=== PATIENT | male | born 1945 | race Caucasian/White ===

== ENCOUNTER 2021-06-17 18:35 | Inpatient (IN) | payer MEDICARE, OTHER, SELFPAY ==
[2021-06-17] VITALS (11 sets, daily range): BP systolic 86–138; BP diastolic 46–86; PULSE 38–86; RESP 17–22; TEMP 36.8–37.1; O2SAT 24–98; BMI 31.4
--- NOTE | ~2021-06-17 | XR_ITS ---
EXAMINATION: XR chest 1V portable DATE: 06/17/2021 19:28 INDICATION: Weakness. TECHNIQUE: A single frontal view of the chest was obtained. COMPARISON: None. FINDINGS: The chest demonstrates clear lungs without pneumonia, pleural effusion, or pneumothorax. Th e heart size is normal. There are prominent paracardial fat pads. IMPRESSION: 1. No acute cardiopulmonary disease. Reviewed, dictated and finalized at location A.
[2021-06-17] MEDS: DEXTROSE 50% 25 GM/50 ML SYRINGE (18:37)
[2021-06-17] MEDS: INSULIN HUMAN REGULAR (*BKC) 100 UNITS/ML 10 UNITS (18:37)
[2021-06-17] MEDS: CALCIUM GLUCONATE 1,000 MG/10 ML VIAL 1000 MG (18:38)
--- NOTE | 2021-06-17 18:40 | ECG_ITS ---
Measurements Intervals [place] Rate: 23 P: [place]: 0 QRS: -79 QRSD: 239 T: 75 QT: 585 QTc: 367 Interpretive Statements IDIOVENTRICULAR RHYTHM RIGHT BUNDLE BRANCH BLOCK ABNORMAL ECG Electronically Signed On 06-18-2021 5:39:18 CDT by Liang Almanza D.O.
--- NOTE | 2021-06-17 18:42 | PC.NURSE ---
Dr. Kowalski at bedside. VORB 1mg atropine IVP.
--- NOTE | 2021-06-17 18:44 | PC.NURSE ---
Dr. Kowalski at bedside. VORB 1g calcium chloride IVP.
[2021-06-17 18:55] LABS: Alveolar/Arterial O2 Gradient 20.4 mmHg; Base Excess ABG -13.4 mEq/l (+/-2.0); Carboxyhemoglobin 0.6 % THb (0-2.0); Fractional Inspired Oxygen 21 %; HCO3 ABG 13.8 mEq/l (22.0-26.0); Methemoglobin ABG 0.3 %THb (0-1.5); Oxygen Content ABG 17.6 %vol (16.0-22.0); Oxygen Saturation ABG 94.3 % (95.0-100.0); Oxyhemoglobin 91.7 % THb (90.0-100.0); PCO2 ABG 36.5 mmHg (35.0-45.0); PO2 ABG 85.6 mmHg (80.0-100.0); PO2 FiO2 Ratio Arterial Blood 4.08 %; Reduced Hemoglobin 7.4 %THb (0-5.0); Total Hemoglobin 13.6 g/dL (12.0-18.0)
[2021-06-17 18:56] LABS: Device ROOM AIR; Site Drawn RIGHT BRACHIAL; pH ABG 7.196 (7.350-7.450)
[2021-06-17] MEDS: SODIUM BICARBONATE 8.4% 50 MEQ/50 ML SYRINGE IV PUSH ×2 (19:03→19:49)
--- NOTE | 2021-06-17 19:07 | PC.NURSE ---
Bedside report to NOY Hamlin.
[2021-06-17 19:13] LABS: Basophils Percent Auto 0.2 % (0.2-1.2); Hematocrit 41.1 % (42.0-52.0); Hemoglobin 12.9 g/dL (14.0-18.0); Immature Granulocyte Absolute 0.14 K/mm3 (0.00-0.031); Immature Granulocyte Percent A 1.3 % (0-0.5); Lymphocytes Absolute Auto 0.39 K/mm3 (0.9-3.2); Lymphocytes Percent Auto 3.7 % (18.3-44.2); Mean Corpuscular HGB Conc 31.4 g/dl (32-36); Mean Corpuscular Hemoglobin 34.4 pg (26-34); Mean Corpuscular Volume 109.6 fl (80-100); Mean Platelet Volume 9.4 fl (7.4-10.4); Monocytes Absolute Auto 0.2 K/mm3 (0.1-0.6); Monocytes Percent Auto 1.9 % (2.6-8.5); Neutrophils Absolute Auto 9.9 K/mm3 (1.3-6.7); Neutrophils Percent Auto 92.9 % (45.5-73.1); Platelet Count Result 249 k/mm3 (150-375); Red Blood Count 3.75 M/mm3 (4.6-6.20); Red Cell Distribution Width 15.8 % (11.5-14.5); White Blood Count 10.6 K/mm3 (4.5-10.0)
--- NOTE | 2021-06-17 19:15 | ED.WEAKNESS ---
HPI - Weakness General Chief complaint: Weakness Stated complaint: weakness Source: patient and RN notes reviewed Mode of arrival: EMS Limitations: no limitations History of Present Illness HPI Narrative: This is a 76 year old male with history of hypertension and ESRD on dialysis who presents for evaluation of generalized weakness. Patient reports he is extremely weak and tired today. HE denies chest pain, shortness of breath, cough or fever. He denies vomiting or diarrhea. He states he was unable to make it dialysis today. EMS was called and he was found to be hypotensive with chema cardia. He reports he had dialysis on Thursday. He denies cardiac history . MD Complaint: generalized weakness Related Data Home Medications Medication Instructions Recorded Confirmed allopurinol 100 mg PO DAILY 06/17/21 06/17/21 aspirin [Adult Low Dose Aspirin] 81 mg PO DAILY 06/17/21 06/17/21 cholecalciferol (vitamin D3) 50 mcg PO DAILY 06/17/21 06/17/21 clonidine 1 patch TRANSDERMAL DIRECTED 06/17/21 06/17/21 diltiazem HCl 360 mg PO DAILY 06/17/21 06/17/21 ferrous sulfate 325 mg PO DAILY 06/17/21 06/17/21 folic acid 1 mg PO DAILY 06/17/21 06/17/21 furosemide [Lasix] 80 mg PO DAILY 06/17/21 06/17/21 hydralazine 100 mg PO DIRECTED 06/17/21 06/17/21 simvastatin 20 mg PO DAILY 06/17/21 06/17/21 Allergies Allergy/AdvReac Type Severity Reaction Status Date / Time No Known Allergies Allergy Verified 06/17/21 22:11 Review of Systems Review of Systems: All systems reviewed & are unremarkable except as noted in HPI and below PMFSH Past Medical History Medical History (Updated 06/17/21 @ 20:15 by Candace Kowalski MD) ESRD on dialysis Hypertension Surgical History Surgical History (Updated 06/17/21 @ 19:21 by Candace Kowalski MD) H/O colectomy History of nephrectomy Social History Social History Smoking packs per day: 0.5 Smoking cigarettes per day: 10.0 Years smoked: 52 Smoking pack-years: 26.00 Smoking status: Current some day smoker Second hand tobacco smoke exposure: Yes Alcohol intake: former Substance use: never Spiritual care concerns: No Exam Const: General: alert and ill appearing Orientation/consciousness: patient oriented x3 Chest: Chest palpation & inspection: normal inspection of the chest Resp: Effort & Inspection: normal respiratory effort and no retractions Auscultation: clear to auscultation bilaterally Cardio: Rate: bradycardic Rhythm: abnormal rhythm GI: GI Palp: Yes Soft to palpation, No Tenderness to palpation present (GI) and No Guarding due to palpation present (GI) Auscultation: normal bowel sounds Other: old midline abdominal surgical scar Skin: Rashes: no rashes Other: bilateral lower extremities with hyperpigmentation from venous stasis Neuro: General: patient oriented x3, moves all extremities and CN's II-XI intact bilaterally Extrem: General: edema Psych: Mental Status: mental status grossly normal Affect: normal affect Course Reevaluation(s) Reevaluation #1: On arrival patient found to have wide complex chema cardia suggesting hyperkalemia. He was given 10 units IV insulin, dextrose, bicarb 1 amp and calcium 1 amp emergently. BP improved with HR now 70s and BP is now normal. He states he feels better. He denies chest pain or shortness of breath , just fatigue. Date: 06/17/21 Time: 19:22 Consultations Consultation #1: I spoke with Dr. Easley of nephrology. He states dialysis should be here and patient should be admitted to ICU Date: 06/17/21 Time: 19:38 Consultation #2: I discussed case with Dr. Murguia who accepts to ICU Date: 06/17/21 Time: 19:42 Consultation #3: I spoke with Dr. Downing who accepts patient to service. I Discussed all labs and case. Date: 06/17/21 Time: 20:10 Vital Signs Vital signs: Vital Signs Temperature 98.8 F 06/17/21 18:29 Pulse Rate 47 L 06/17/21 18:29 Respiratory Rate 18 06/17/21 18:29 Pulse O
[2021-06-17 19:23] LABS: INR 1.1; Prothrombin Time 14.5 Seconds (11.1-14.7)
[2021-06-17 19:24] LABS: Partial Thromboplastin Time 32.1 SECONDS (22.3-36.8)
[2021-06-17 19:32] LABS: Albumin Level 4.3 g/dL (3.5-5.1); Alkaline Phosphatase 65 U/L (38-126); Anion Gap 25 mmol/L (8-16); Aspartate Amino Transferase 34 U/L (17-59); Bilirubin,Total 0.8 mg/dL (0.2-1.3); Blood Urea Nitrogen 84 mg/dL (9-20); Calcium 10.6 mg/dL (8.4-10.2); Carbon Dioxide 14 mmol/L (22-30); Chloride 96 mmol/L (98-107); Glucose 243 mg/dL (65-110); Magnesium 3.2 mg/dL (1.6-2.3); Potassium 8.2 mmol/L (3.4-5.0); Sodium 135 mmol/L (137-145)
[2021-06-17 19:33] LABS: Lactic Acid Reflex 8.1 mmol/L (0.7-2.1)
[2021-06-17 19:35] LABS: NT Pro B Type Natriuretic Pept 3690 pg/mL (5-100); Troponin I 0.018 ng/mL (0.000-0.034)
[2021-06-17 19:36] LABS: Estimated CRCL calculation 4 ml/min; Estimated Glomerular Filt Rate 3
[2021-06-17 19:45] LABS: Alanine Aminotransferase 37 U/L (4-50)
[2021-06-17] MEDS: SODIUM CHLORIDE 0.9% IV 1,000 ML 999 ML IV CONT (19:48)
[2021-06-17] MEDS: SODIUM POLYSTYRENE SULFONONATE 15 GM/60 ML BTL PO (19:48)
[2021-06-17 20:28] LABS: Glucose Point of Care 72 mg/dl (65-105)
[2021-06-17 20:34] LABS: Add Urine Microscopic? YES; Appearance Urine Cloudy (Clear); Bacteria Urine Trace /hpf; Bilirubin Urine Negative (Negative); Blood Urine 2+ (Negative); Color Urine Amber (Yellow); Glucose Urine UA 1+ mg/dL (Negative); Ketones Urine Negative (Negative); Leukocyte Esterase Ur 2+ LEU/UL (Negative); Mucus Urine Rare /lpf; Nitrate Urine Negative (Negative); Protein Urine 2+ mg/dL (Negative); Specific Grav Ur 1.016 (1.001-1.035); Squamous Epithelial Cell Urine Occasional /hpf (Few); Urobilinogen Urine Negative mg/dL (<2.0); WBC Urine 31-50 /hpf
--- NOTE | 2021-06-17 20:39 | PC.NURSE ---
Attempted to call report to ICU at this time. janitorial cleaner on phone at this time. ICU charge will call back.
--- NOTE | 2021-06-17 21:00 | ADMGEN ---
This patient, Balwinder Mora, was admitted to Intensive Care Unit-12. Patient/family oriented to hospital policies and general routines including ID bracelet, bed and alarms, visiting hours, pain management, procedures, bathroom and other care routines, personal items, smoking policy, room service/diet, and visiting hours. DIALYSIS NURSE HERE TO PLACE ON TREATMENT. DENIES PAIN OR SOB ON ARRIVAL. DIALYSIS FISTULA TO L. UPPER ARM. Information on how to activate the Rapid Response Team has been discussed. Patient/Family are encouraged to report perceived risks to care and to ask questions if they do not understand what they are told or what they should do.
[2021-06-17] MEDS: DEXTROSE 50% 25 GM/50 ML SYRINGE IV PUSH (21:15)
[2021-06-17 21:18] LABS: Glucose Point of Care 46 mg/dl (65-105)
[2021-06-17 22:06] LABS: Glucose Point of Care 51 mg/dl (65-105)
[2021-06-17 22:12] LABS: Reflex Lactic Acid Yes or No Add Lactic
[2021-06-17 22:39] LABS: Hepatitis B Surface Antigen Negative (Negative)
[2021-06-17 22:57] LABS: Hepatitis B Surface Anti Res Negative
[2021-06-17 23:09] LABS: Glucose Point of Care 80 mg/dl (65-105)
[2021-06-18] VITALS (9 sets, daily range): BP systolic 90–124; BP diastolic 47–67; PULSE 60–80; RESP 13–20; TEMP 36.6–37.2; O2SAT 94–98
--- NOTE | 2021-06-18 00:10 | PM.IMHP ---
H&P: HPI History of Present Illness Date/Time: 06/18/21 00:10 Chief Complaint: Generalized weakness Narrative: This is a 76-year-old male with past medical history significant for end-stage renal disease on hemodialysis, he goes to hemodialysis Wednesdays and Fridays he was unable to make it to dialysis this Thursday as when he got ready to go out in his car he did not feel well he was extremely weak and when wound getting out of the car he felt his legs were too weak he was able to get up and go back in his house he was feeling too weak to get out of bed and his friend called EMS, upon EMS arrival patient was found to be hypotensive with a very slow heart rate and was brought to the emergency room. Preliminary workup was significant for a potassium of 8.2 and an EKG showed a heart rate of 23 a QT interval of 585. Patient denies any chest pain but a states that he was feeling very tired fatigued weak and could not lay down due to shortness of breath at the time of my visit his said that he feels a lot better. He had been in his usual state of health according to his friend he has had high potassium in the past. He denies any fevers, any chills, any rigors, any cough, no sputum production, no chest pain, no syncope or near syncope. Review of Systems Review of Systems: Generalized weakness, fatigue, shortness of breath, fall Constitutional: Constitutional: Denies chills, Reports fatigue, Denies fever(s), Reports lethargy and Reports weakness Eyes: Eyes: Denies change in vision ENT: Denies dysphagia, Denies nasal congestion, Denies nasal discharge and Denies odynophagia Cardiovascular: Cardiovascular: Denies lightheadedness and Reports orthopnea Respiratory: Respiratory: Denies cough Gastrointestinal: Gastrointestinal: Denies abdominal pain, Denies GI cramping, Denies dyspepsia, Denies heartburn and Denies diarrhea Genitourinary: Genitourinary: Reports no additional male genitourinary complaints Musculoskeletal: Musculoskeletal: Reports no additional musculoskeletal complaints Integumentary/Breasts: Skin/Breast: Reports system reviewed and no additional complaints, except as docu Neurologic: Reports system reviewed and no additional complaints, except as documented Psychiatric: Psychiatric: Reports no additional psychiatric complaints Endocrine: Endocrine: Reports no additional endocrine complaints Hematologic/Lymphatic: Hematologic/Lymphatic: Reports no additional hematologic/lymphatic complaints Allergic/Immunologic: Allergic/Immunologic: Reports no additional allergic/immunologic complaints FOR[facility]LY [facility], [facility] Past Medical History Medical History (Updated 06/18/21 @ 01:01 by Noemi Downing MD) ESRD on dialysis Hypertension Surgical History Surgical History (Updated 06/17/21 @ 19:21 by Candace Kowalski MD) H/O colectomy History of nephrectomy Social History Social History Smoking packs per day: 0.5 Smoking cigarettes per day: 10.0 Years smoked: 52 Smoking pack-years: 26.00 Smoking status: Current some day smoker Second hand tobacco smoke exposure: Yes Alcohol intake: former Substance use: never Spiritual care concerns: No Meds Home Medications and Allergies Home Medications Medication Instructions Recorded Confirmed Type allopurinol 100 mg PO DAILY 06/17/21 06/17/21 History aspirin [Adult Low Dose Aspirin] 81 mg PO DAILY 06/17/21 06/17/21 History cholecalciferol (vitamin D3) 50 mcg PO DAILY 06/17/21 06/17/21 History clonidine 1 patch TRANSDERMAL DIRECTED 06/17/21 06/17/21 History diltiazem HCl 360 mg PO DAILY 06/17/21 06/17/21 History ferrous sulfate 325 mg PO DAILY 06/17/21 06/17/21 History folic acid 1 mg PO DAILY 06/17/21 06/17/21 History furosemide [Lasix] 80 mg PO DAILY 06/17/21 06/17/21 History hydralazine 100 mg PO DIRECTED 06/17/21 06/17/21 History simvastatin 20 mg PO DAILY 06/17/21 06/17/21 History Allergies Allergy/AdvReac Type Severity Reaction Status Date / T
[2021-06-18 00:17] LABS: Glucose Point of Care 97 mg/dl (65-105)
[2021-06-18 03:20] LABS: Glucose Point of Care 90 mg/dl (65-105)
[2021-06-18 04:55] LABS: Basophils Percent Auto 0.2 % (0.2-1.2); Hematocrit 32.8 % (42.0-52.0); Hemoglobin 10.9 g/dL (14.0-18.0); Immature Granulocyte Absolute 0.05 K/mm3 (0.00-0.031); Immature Granulocyte Percent A 0.6 % (0-0.5); Lymphocytes Absolute Auto 0.79 K/mm3 (0.9-3.2); Lymphocytes Percent Auto 9.6 % (18.3-44.2); Mean Corpuscular HGB Conc 33.2 g/dl (32-36); Mean Corpuscular Hemoglobin 34.4 pg (26-34); Mean Corpuscular Volume 103.5 fl (80-100); Mean Platelet Volume 9.5 fl (7.4-10.4); Monocytes Percent Auto 11.9 % (2.6-8.5); Neutrophils Absolute Auto 6.4 K/mm3 (1.3-6.7); Neutrophils Percent Auto 77.7 % (45.5-73.1); Platelet Count Result 168 k/mm3 (150-375); Red Blood Count 3.17 M/mm3 (4.6-6.20); White Blood Count 8.2 K/mm3 (4.5-10.0)
[2021-06-18 05:19] LABS: Anion Gap 9 mmol/L (8-16); Blood Urea Nitrogen 45 mg/dL (9-20); Calcium 8.7 mg/dL (8.4-10.2); Carbon Dioxide 31 mmol/L (22-30); Chloride 96 mmol/L (98-107); Estimated CRCL calculation 8 ml/min; Estimated Glomerular Filt Rate 6; Glucose 67 mg/dL (65-110); Potassium 5.2 mmol/L (3.4-5.0); Sodium 136 mmol/L (137-145)
[2021-06-18] MEDS: CHOLECALCIFEROL 1,000 UNITS TABLET 2000 UNITS PO (08:12)
[2021-06-18] MEDS: ASPIRIN 81 MG ENTERIC TABLET PO (08:12)
[2021-06-18] MEDS: dilTIAZem HCL CD 180 MG CAP.ER.24H 360 MG PO (08:12)
[2021-06-18] MEDS: FOLIC ACID 1 MG TABLET PO (08:12)
[2021-06-18] MEDS: allopurinoL 100 MG TABLET PO (08:13)
[2021-06-18] MEDS: SIMVASTATIN 20 MG TABLET PO (08:13)
[2021-06-18] MEDS: FERROUS SULFATE 324 MG TABLET PO (08:13)
[2021-06-18] MEDS: FUROSEMIDE 80 MG TABLET PO (08:13)
[2021-06-18] MEDS: hydrALAZINE HCL 50 MG TABLET 100 MG PO (08:13)
--- NOTE | 2021-06-18 08:43 | PM.DS ---
DS: Admitting Diagnosis Discharge Date 06/18/2021 Admitting Diagnosis Weakness DS: Discharge Diagnosis Discharge Diagnosis (1) Hyperkalemia: Code(s): E87.5 - Hyperkalemia Status: Acute (2) Bradycardia: Code(s): R00.1 - Bradycardia, unspecified Status: Acute (3) ESRD on dialysis: Code(s): N18.6 - End stage renal disease; Z99.2 - Dependence on renal dialysis Status: Acute DS: Summary Hospital Course Hospital Course: This is 76-year-old gentleman with past medical history of hypertension and end-stage renal disease, who presented to the emergency department 06/17 with profound weakness. He reported that he was at his son's wedding 2 days ago after which he felt weak and did not attend his dialysis on Sunday 06/17. He continued to feel weaker and presented to the emergency department. He was found to be hyperkalemic with a potassium of 8.2. He was also found to be bradycardic with heart rate lowest of 38. EKG showing idioventricular rhythm and right bundle-branch block. Other lab showed sodium 35, bicarb 14, anion gap 25, creatinine 14.8 and BUN 84. His glucose was initially 243. His lactate was 8.1. In the Emergency department he was treated with standard hyperkalemia protocol. He was admitted to the ICU. He then underwent emergent dialysis. Subsequent labs showed potassium of 5.2, bicarb 31, BUN 45, calcium of 8.7 and normalized lactic acid. His bradycardia resolved. He felt significantly better and his weakness resolved with normalization of his potassium. He felt strong and was able to ambulate independently, reported being back to baseline. He received an extra dose of Kayexalate prior to discharge. He will be discharged with close follow-up. He will be going to dialysis next tomorrow 06/19. Time Spent with Patient Time attestation: Total time spent providing and/or coordinating discharge services: 28 min Exam Narrative: Gen: Alert, NAD Abd: Soft, NT, ND Heart: RRR Lungs: CTAB Ext: No lower extremity edema Left upper extremity AV fistula DS: Data Data Completed and Pending Labs on day of discharge: Labs from last 24 hours 06/18/21 06/18/21 06/18/21 04:25 04:25 03:16 WBC 8.2 RBC 3.17 L Hgb 10.9 L Hct 32.8 L MCV 103.5 H D MCH 34.4 H MCHC 33.2 RDW 15.0 H Plt Count 168 MPV 9.5 Immature Gran % (Auto) 0.6 H Neut % (Auto) 77.7 H Lymph % (Auto) 9.6 L [place] % (Auto) 11.9 H Eos % (Auto) 0.0 Baso % (Auto) 0.2 Lymph # (Auto) 0.79 L [place] # (Auto) 1.0 H Eos # (Auto) 0.0 Baso # (Auto) 0.0 Abs Immat Gran (auto) 0.05 H Absolute Neuts (auto) 6.4 Absolute Nucleated RBC 0.0 Nucleated RBC % 0.0 PT INR APTT Puncture Site ABG pH ABG pCO2 ABG pO2 ABG PO2/FiO2 Ratio ABG HCO3 ABG O2 Saturation ABG O2 Content ABG Base Excess A-a Gradient Oxyhemoglobin Carboxyhemoglobin Methemoglobin Reduced Hemoglobin Total Hemoglobin O2 Delivery Device O2 Liters/Min FiO2 Sodium 136 L Potassium 5.2 H Chloride 96 L Carbon Dioxide 31 H Anion Gap 9 BUN 45 H D Creatinine 8.90 H Estim Creat Clear Calc 8 Estimated GFR 6 L Glucose 67 POC Capillary Glucose 90 Lactic Acid Calcium 8.7 Magnesium Total Bilirubin AST ALT Alkaline Phosphatase Troponin I NT-Pro-B Natriuret Pep Total Protein Albumin Urine Color Urine Appearance Urine pH Ur Specific [place] Urine Protein Urine Glucose (UA) Urine Ketones Ur Blood (Man) Urine Nitrate Urine Bilirubin Urine Urobilinogen Leukocyte Esterase Rfl Urine RBC Urine WBC Ur Squamous Epith Cells Urine Bacteria Urine Mucus Hep Bs Antigen Hep Bs Antibody 06/18/21 06/17/21 06/17/21 00:14 22:44 22:20 WBC RBC Hgb Hct MCV MCH MCHC RDW Plt Count MPV Immat
--- NOTE | 2021-06-18 09:02 | PM.CNNEP ---
Assessment and Plan Additional Plan 1. The patient has end-stage renal disease. He had dialysis last night and is due tomorrow. We will do this here if he is still here but if he goes home then he can have any [facility] tomorrow. 2. The patient had hyperkalemia. This was severe. This led to several issues including severe weakness, bradycardia, hypotension, lactic acidosis. All these are better now that the potassium is better. I think this is probably from over consumption of potassium due to the parties related to his wedding. He does not have any evidence for GI bleeding. His hemoglobin is okay. No evidence for intravascular hemolysis either. He does still have a high potassium at 5.2. Will give him a dose of Kayexalate before discharge. This was already ordered. 3. Hypotension from hyperkalemia 4. Bradycardia from hypokalemia 5. Renal osteodystrophy. Patient is followed closely at [facility] for this. Can check a phosphorus in the morning if he still here. 6. The patient has anemia. Hemoglobin is 10.9. Will resume Epogen tomorrow History of Present Illness Reason for Consult Consult date: 06/18/21 Chief Complaint Chief complaint: Hyperkalemia, Lactic Acidosis, Weakness History of Present Illness Narrative: Balwinder is a very pleasant 76-year-old gentleman who has end-stage renal disease on dialysis 3 times a week due to hypertension, hypertension, renal osteodystrophy, anemia of chronic kidney disease, vitamin-D deficiency, gout, hyperlipidemia. The patient came in the hospital because he was very weak. He says that he went to dialysis on Thursday and had an uneventful treatment. His son got over the weekend so he had several parties and also spent the day on the [place] on Thursday. He was post to go to dialysis yesterday but felt too weak to even get out of bed so they called 911 and had him brought over to the emergency room. He was evaluated in the ER and found to have a potassium of over 8. The patient had a clear chest x-ray. His heart rate was very low. He was given insulin glucose bicarb(his bicarb level was in the teens) and also Kayexalate. His rhythm improved. He was dialyzed emergently in the ICU last night. He tolerated the treatment well and feels better today and wants to go home. He denies any chest pain or shortness of breath. No belly pain. No nausea vomiting diarrhea constipation abdominal pain. No bloody stools or black stools. He thinks he just gotten to high potassium foods because of all the parties related to his son's wedding. Review of Systems Constitutional: Constitutional: Reports no additional constitutional complaints Eyes: Eyes: Reports no additional eye complaints ENT: Reports system reviewed and no additional complaints, except as documented Cardiovascular: Cardiovascular: Reports no additional cardiovascular complaints Respiratory: Respiratory: Reports no additional respiratory complaints Gastrointestinal: Gastrointestinal: Reports no additional gastrointestinal complaints Genitourinary: Genitourinary: Reports no additional male genitourinary complaints Musculoskeletal: Musculoskeletal: Reports no additional musculoskeletal complaints Integumentary/Breasts: Skin/Breast: Reports system reviewed and no additional complaints, except as docu Neurologic: Reports system reviewed and no additional complaints, except as documented Psychiatric: Psychiatric: Reports no additional psychiatric complaints Endocrine: Endocrine: Reports no additional endocrine complaints PMFSH Past Medical History Medical History ESRD on dialysis Hypertension Surgical History Surgical History H/O colectomy History of nephrectomy Social History Social History Smoking packs per day: 0.5 Smoking cigarettes per day: 10.
--- NOTE | 2021-06-18 09:03 | ECG_ITS ---
Measurements Intervals [place] Rate: 68 P: 29 CO: 213 QRS: -48 QRSD: 155 T: 38 QT: 415 QTc: 443 Interpretive Statements SINUS RHYTHM WITH FIRST DEGREE AV BLOCK RIGHT BUNDLE BRANCH BLOCK LEFT ANTERIOR FASCICULAR BLOCK BASELINE ARTIFACT- I, II, III, AVR, AVL,A VF ABNORMAL ECG Electronically Signed On 06-18-2021 9:23:55 CDT by Liang Almanza D.O.
--- NOTE | 2021-06-18 09:29 | WPDCNINT ---
Assessment and Plan Assessment and plan (1) Hyperkalemia: Code(s): E87.5 - Hyperkalemia Status: Acute Assessment and Plan: Patient presented with severe hyperkalemia with a potassium level 8.2 admission. Patient is also acidotic severe lactic acidosis, could increase the potassium too. -she was dialyzed overnight on 06/17/2021 with removal of 2000 fluid. -potassium level this morning is 5.2, patient was given Kayexalate -discussed with Nephrology, patient will get his dialysis on his regular days (2) ESRD on dialysis: Code(s): N18.6 - End stage renal disease; Z99.2 - Dependence on renal dialysis Status: Acute Assessment and Plan: Improve metabolic acidosis, -patient states he has been very regular with his dialysis except for on 06/17/2021 when he was feeling weak. -he will continue his dialysis and his regular clinic (3) Generalized weakness: Code(s): R53.1 - Weakness Status: Acute Assessment and Plan: Resolved -likely related to severe metabolic acidosis, hyperkalemia, hypotension, bradycardia (4) Hypotension: Qualifiers: Hypotension type: other hypotension type Qualified Code(s): I95.89 - Other hypotension Code(s): I95.9 - Hypotension, unspecified Status: Acute Assessment and Plan: Blood pressures remain soft, holding his blood pressure medication (5) Acidosis, lactic: Code(s): E87.2 - Acidosis Status: Acute Assessment and Plan: Lactic acid on admission was 8.1, -repeat lactic acid levels of 2.0 (6) Bradycardia: Code(s): R00.1 - Bradycardia, unspecified Status: Acute Assessment and Plan: Likely related to hyperkalemia -has resolved, -heart rate is 60s to 80s Additional Plan Discussed with patient updated with his condition and plan of care. He is aware that he needs to get his dialysis done regularly. He is also aware that his potassium levels are significantly elevated he could have a cardiac arrest secondary to that. Code status: Full code Critical care time spent: 37 minutes This dictation may have been done utilizing a voice recognition system. Attempts have been made to correct errors. However, there may be uncorrected grammatical, spelling, and recognition errors present. Due to a high probability of clinically significant, life threatening deterioration, the patient required my highest level of preparedness to intervene emergently and I personally spent this critical care time directly and personally managing the patient. This critical care time included obtaining a history; examining the patient; pulse oximetry; ordering and review of studies; arranging urgent treatment with development of a management plan; evaluation of patient's response to treatment; frequent reassessment; and discussions with other providers. It was exclusive of separately billable procedures and treating other patients and teaching time. Please see Assessment and Plan section and the rest of the note for further information on patient assessment and treatment Audio Engineer Consult Note Consult date: 06/18/21 Time Seen: 07:01 Reason for consult: Hyperkalemia, metabolic acidosis, missed dialysis HPI: Balwinder Mora is a 76 year old male with past medical history of end-stage renal disease on dialysis, hypertension presented the ED on 06/17/2021 with increasing weakness and he felt that his legs were too weak and he was unable to get up to come out of his car.. Patient was found to be hypotensive and bradycardic when the EMS arrived at his house. Potassium was ordered 0.2 and EKG showed prolonged QT interval. Patient did get dialyzed overnight with 2000 mL fluid removal. Potassium this morning is 5.2. Patient's feels better, blood pressures are soft. Patient denies any chest pain, shortness of breath abdominal pain, nausea, vomiting. Able to tolerate p.o. diet. Patient continues to smoke cigarettes, states he smokes a
[2021-06-18] MEDS: SODIUM POLYSTYRENE SULFONONATE 15 GM/60 ML BTL PO (09:50)
[2021-06-18 09:53] LABS: Glucose Point of Care 70 mg/dl (65-105)
[2021-06-18 09:57] LABS: Glucose Point of Care 123 mg/dl (65-105)
[2021-06-24 08:01] LABS: Glucose Point of Care 149 mg/dl (65-105)
== END 2021-06-18 11:04 | disposition home or self-care (01) | DRG 640 ==
LOC: ANHED 20:15 → ANHICU 20:24
PROVIDERS: Internal Medicine Nephrology; Admitting Provider Internal Medicine; Emergency Provider General Practice; Visit Provider Internal Medicine Nephrology
DX: E87.5 Hyperkalemia (principal); N18.6 End stage renal disease; I12.0 Hypertensive chronic kidney disease with stage 5 chronic kidney disease or end stage renal disease; Z99.2 Dependence on renal dialysis; I95.89 Other hypotension; R00.1 Bradycardia, unspecified; E87.2 Acidosis; F17.200 Nicotine dependence, unspecified, uncomplicated; N25.0 Renal osteodystrophy; D64.9 Anemia, unspecified; Z79.899 Other long term (current) drug therapy; Z90.5 Acquired absence of kidney
CPT/HCPCS: 36415; 36600; 51701; 71045; 80048; 80053; 81001; 82375; 82805; 82948; 83050; 83605; 83735; 83880; 84484; 85025; 85610; 85730; 86706; 87040; 87086; 87340; 93005; 96374; 96375; 99285; A9270; G0257; J0461; J0610; J1644; J1815; J7030

== ENCOUNTER 2022-09-18 12:21 | Emergency (ER) | payer MEDICARE, SELFPAY ==
--- NOTE | ~2022-09-18 | XR_ITS ---
XR shoulder RT min 2V DATE: 09/18/2022 13:45 INDICATION: Fall. Right shoulder injury, pain TECHNIQUE: 4 views COMPARISON: None FINDINGS: There is diffuse osteopenia. Normal alignment at the acromioclavicular and glenohumeral joints. No fracture or dislocation, perios teal reaction or bone destruction is detected. IMPRESSION: No fracture or dislocation Reviewed, dictated and finalized at location B. ESSING REP IMPRESSION: No fracture or dislocation
--- NOTE | ~2022-09-18 | XR_ITS ---
XR hip RT 2V w AP pelvis DATE: 09/18/2022 13:45 INDICATION: Fall. Right hip pain. TECHNIQUE: AP pelvis. AP and crosstable lateral views of right hip. COMPARISON: None FINDINGS: Examination is mildly limited due to patient rotation. Dextro scoliosis and multilevel degenerative disc disease of the lumbar spine. The pubic symphysis and sacroiliac joints appear normally aligned. No pelvic fracture is evident. No fracture or dislocation, avascular necrosis or bone destruction of the right hip is noted. Extensive calcification of the femoral arteries. IMPRESSION: No pelvic or right hip fracture or dislocation is evident on this limited examination Reviewed, dictated and finalized at location B. IGERATOR CRATER IMPRESSION: No pelvic or right hip fracture or dislocation is evident on this l imited examination
[2022-09-18 12:17] VITALS: BP 144/72; PULSE 70; RESP 18; TEMP 36.7; O2SAT 100
[2022-09-18] MEDS: ONDANSETRON INJ 4 MG/2 ML VIAL IV PUSH (13:14)
[2022-09-18] MEDS: MORPHINE SULFATE (*CRX) 4 MG/ML INJ IV PUSH (13:14)
--- NOTE | 2022-09-18 15:29 | ED.FALL ---
HPI - Fall General Chief Complaint: Fall Stated Complaint: fall Time Seen by Provider: 09/18/22 12:25 Source: patient Mode of arrival: EMS Limitations: no limitations History of Present Illness HPI Narrative: 77-year-old with a history of ESRD on hemodialysis was brought in from home with complaints of fall patient states that he fell off the ladder to the right side of his body hit his right shoulder and right hip. He denies head and neck injuries. No history of loss of consciousness. He complains of pain mostly in the hip area he is able to walk but with pain. MD complaint: fall Onset (ago): hour(s) (5) Fall from: from height (distance) (4) Fall witnessed: yes, by family Place fall occurred: home Loss of consciousness: none Symptoms prior to fall: none Context: tripped/slipped Location of injury - extremities: Right: shoulder and thigh Severity: moderate Quality: aching Associated symptoms (after fall): denies Related Data Home Medications Medication Instructions Recorded Confirmed allopurinol 100 mg tablet 100 mg PO DAILY 06/17/21 06/17/21 aspirin 81 mg tablet,delayed 81 mg PO DAILY 06/17/21 06/17/21 release (Adult Low Dose Aspirin) cholecalciferol (vitamin D3) 50 50 mcg PO DAILY 06/17/21 06/17/21 mcg (2,000 unit) tablet clonidine 0.2 mg/24 hr weekly 1 patch transdermal DIRECTED 06/17/21 06/17/21 transdermal patch diltiazem HCl 360 mg capsule,24 360 mg PO DAILY 06/17/21 06/17/21 hr,extended release ferrous sulfate 325 mg (65 mg 325 mg PO DAILY 06/17/21 06/17/21 iron) tablet folic acid 1 mg tablet 1 mg PO DAILY 06/17/21 06/17/21 furosemide 80 mg tablet (Lasix) 80 mg PO DAILY 06/17/21 06/17/21 hydralazine 100 mg tablet 100 mg PO DIRECTED 06/17/21 06/17/21 simvastatin 20 mg tablet 20 mg PO DAILY 06/17/21 06/17/21 Allergies Allergy/AdvReac Type Severity Reaction Status Date / Time No Known Allergies Allergy Verified 06/25/21 10:12 Review of Systems Review of Systems: All systems reviewed & are unremarkable except as noted in HPI and below Constitutional: Constitutional: Reports no additional constitutional complaints Eyes: Eyes: Reports no additional eye complaints ENT: Reports system reviewed and no additional complaints, except as documented Cardiovascular: Cardiovascular: Reports no additional cardiovascular complaints Respiratory: Respiratory: Reports no additional respiratory complaints Gastrointestinal: Gastrointestinal: Reports no additional gastrointestinal complaints Musculoskeletal: Musculoskeletal: Reports as per HPI Neurologic: Reports system reviewed and no additional complaints, except as documented PMFSH Past Medical History Medical History ESRD on dialysis Hypertension Surgical History Surgical History H/O colectomy History of nephrectomy Social History Social History Smoking packs per day: 0.5 Smoking cigarettes per day: 10.0 Years smoked: 52 Smoking pack-years: 26.00 Smoking status: Current some day smoker Second hand tobacco smoke exposure: Yes Alcohol intake: former Substance use: never Spiritual care concerns: No Exam Narrative: GENERAL: Well-appearing, well-nourished, and in no acute distress. HEAD: Normocephalic, atraumatic. EYES: PERRLA and EOMI. NECK: Supple. CHEST: Clear to auscultation. No respiratory distress. HEART: Regular rate and rhythm. No murmur heard. Normal peripheral pulses. ABDOMEN: Soft, nontender, nondistended, normal active bowel sounds. EXTREMITIES: Normal range of motion. No edema. Tender in the right hip area leg is not shortened he is able to move SKIN: Warm, dry, no rash. NEURO: No focal deficits. Alert and oriented x3. PSYCH: Normal mood and affect. Course Course Emergency Course: His pain has much improved after IV morphine. Informe
[2022-09-18 16:30] VITALS: BP 142/73; PULSE 72; RESP 18; O2SAT 99
== END 2022-09-18 16:30 | disposition home or self-care (01) ==
PROVIDERS: Emergency Provider Family Medicine
DX: S70.01XA Contusion of right hip, initial encounter (principal); S49.91XA Unspecified injury of right shoulder and upper arm, initial encounter; I12.0 Hypertensive chronic kidney disease with stage 5 chronic kidney disease or end stage renal disease; N18.6 End stage renal disease; Z99.2 Dependence on renal dialysis; F17.210 Nicotine dependence, cigarettes, uncomplicated; W10.9XXA Fall (on) (from) unspecified stairs and steps, initial encounter
CPT/HCPCS: 73030; 73502; 96374; 96375; 99284; J2270; J2405

== ENCOUNTER 2024-03-23 11:44 | Inpatient (IN) | payer OTHER, SELFPAY ==
[2024-03-23] VITALS (24 sets, daily range): BP systolic 53–135; BP diastolic 34–100; PULSE 79–129; RESP 14–27; TEMP 36.6–38.7; O2SAT 92–100
--- NOTE | ~2024-03-23 | XR_ITS ---
XR chest 2V 03/23/2024 13:01 Indication: Dialysis patient. Weakness. Procedure: AP and lateral views the chest Comparison: 06/17/2021 Findings: Borderline heart size. There is pulmonary vascular indistinctness in the lung bases suggest ing mild edema. No significant effusion. No pneumothorax. No acute osseous abnormality. Impression: 1: Borderline heart size with possible mild interstitial edema. Reviewed, dictated and finalized at location B. Impression: 1: Borderline heart size with possible mild interstitial edema.
--- NOTE | ~2024-03-23 | CT_ITS ---
EXAMINATION: CT guide absc cath placement DATE: 03/23/2024 17:54 INDICATION: Emphysematous/gangrenous cholecystitis. TECHNIQUE: The procedure including the risks and benefits was discussed with the patient. Risks discu ssed included bleeding and infection. The patient understood the risks and benefits and agreed to pro ceed. The patient was confirmed to be receiving appropriate antibiotic coverage. The skin overlying the gallbladder was prepped and draped in usual sterile fashion. Anesthetic was administered with 1% lidocaine subcutaneously. Utilizing CT guidance an 18-gauge trochar needle was advanced into the gal lbladder via transhepatic approach. The inner stylette was removed and a J-wire advanced into the lum en of the gallbladder with position confirmed by CT. Utilizing Seldinger technique the needle was rem benson over the wire the tract serially dilated to 9 Pakistani. An 8.5 Pakistani pigtail catheter was then in serted over the wire with position confirmed by CT and the distal loop formed and locked . The metal stiffener and wire were removed and 50 mL of of bloody reddish-brown fluid was aspirated and sent to the lab for Gram stain and cultures including fungal cultures. The catheter was then attached to suct ion drainage and was draining additional fluid at the conclusion of the procedure. The catheter was s titched to the skin with suture. Antibiotic ointment and a sterile dressing were applied. There were no immediate complications. The dose-length product was 186.93 mGy-cm. FINDINGS: CT images demonstrate the catheter within the gallbladder. 50 mL fluid was aspirated for te sting. IMPRESSION: 1. Successful CT-guided percutaneous cholecystostomy tube placement. 2. 50 mL fluid was sent for aerobic and anaerobic cultures. 3. The catheter will be managed by Dr. Napier. A catheter cholangiogram may be performed not less than 48 hours after tube placement if clinically indicated to assess cystic duct patency. If cholecystecto my is not eventually performed and the infectious episode has resolved, the tube may be removed over a guidewire, preferably not less than 3 weeks after placement to allow time for a mature catheter tra ct to form to prevent bile leakage and peritonitis. Reviewed, dictated and finalized at location A. IMPRESSION: 1. Successful CT-guided percutaneous cholecystostomy tube placement. 2. 50 mL fluid was sent for aerobic and anaerobic cultures. 3. The catheter will be managed by Dr. Napier. A catheter cholangiogram may be pe rformed not less than 48 hours after tube placement if clinically indicated to assess cystic duct patency. If cholecystectomy is not eventually performed and the infectious episode has resolved, the tube may be removed over a guidewire, preferably not less than 3 weeks after placement to allow time for a mature cat heter tract to form to prevent bile leakage and peritonitis.
--- NOTE | ~2024-03-23 | XR_ITS ---
XR chest port-a-cath/central Ordering provider: Gabrielle Antonio MD History: 78 years Male with . Central Line Placement . Comparison: March 23, 2024 FINDINGS: MEDIASTINUM: The cardiac silhouette is slightly enlarged. Left central line coursing below the aortic arch which is now within normal course. Possibility of an proper positioning are abnormal venous ano cholo cannot be excluded. Further evaluation advised. LUNGS: Minimal left pleural effusion. Prominent markings bilaterally with possible pneumonia in the l eft lung base. OTHER: No free air under the diaphragm. Degenerative spine. IMPRESSION: Unusual course of the left central line. Further evaluation advised. Prominent markings bilaterally with highly suggestive left basal pneumonia. Reviewed, dictated and finalized at location A.
--- NOTE | ~2024-03-23 | CT_ITS ---
EXAMINATION: CT abdomen pelvis w con DATE: 03/23/2024 13:13 INDICATION: Sepsis TECHNIQUE: Computed tomography (CT) of the abdomen and pelvis was performed with 100 mL Omnipaque-350 intravenous contrast. Automated exposure control and iterative reconstruction technique were employe d. The dose-length product was 1155.87 mGy-cm. COMPARISON: None FINDINGS: Bibasilar atelectasis, left greater than right with some associated volume loss in the left lower lob e. Heart size is normal. Atherosclerotic coronary artery calcification. There is also aortic valve ca lcific location. No pericardial or pleural effusion. Small sliding-type hiatal hernia. Gallbladder is dilated with extensive gas within the thickened gallbladder wall consistent with emphysema/gangrenou s cholecystitis. Layering sludge and gallstones in the dependent and gas within the nondependent gall bladder. There is likely secondary portal venous gas primarily in the nondependent left hepatic lobe. Liver is otherwise normal. There is prominent inflammatory stranding about the gallbladder with some additional mesenteric stranding and nonloculated likely reactive ascites in the right abdomen. No ab scess or free intraperitoneal gas. Pancreas, spleen and right adrenal gland are normal. 8 mm macrosco pic fat attenuation left adrenal myelolipoma. Status post right nephrectomy and moderate atrophy of t he remaining left kidney. A couple left renal cysts the larger measuring 1.6 cm. Subtotal colectomy w ith right lower quadrant and ileostomy and fluid-filled Lozoya's pouch. Tarsi decompressed bladder i s unremarkable. Prostatomegaly measuring 5 x 4 cm. Mildly prominent but still normal-sized likely laura ctive periportal and portacaval lymph nodes. No pathologically enlarged abdominal or pelvic lymphaden opathy. Old healed right acetabular fracture with screw fixation. Lumbar spondylosis, severe with ant erior and posterior fusion at L5-S1 and mild to moderately more cephalad lumbar and lower thoracic sp ine. IMPRESSION: 1. Gangrenous/emphysematous cholecystitis with secondary portal venous gas. Dr. Wren discussed th dawn findings with Dr. Antonio at 1:30 PM. 2. Small sliding-type hiatal hernia. 3. Prostatomegaly. 4. Status post right nephrectomy with moderate atrophy at the remaining left kidney. 5. Subtotal colectomy with Lozoya's pouch and right lower quadrant and ileostomy. Reviewed, dictated and finalized at location A. IMPRESSION: 1. Gangrenous/emphysematous cholecystitis with secondary portal venous gas. Dr. Wren discussed these findings with Dr. Antonio at 1:30 PM. 2. Small sliding-type hiatal hernia. 3. Prostatomegaly. 4. Status post right nephrectomy with moderate atrophy at the remaining left ki dney. 5. Subtotal colectomy with Lozoya's pouch and right lower quadrant and ileosto my.
--- NOTE | 2024-03-23 12:09 | ED.ABDPAIN ---
HPI - Abdominal Pain General Chief Complaint: Abdominal Pain Stated Complaint: low bp, abd pain Time Seen by Provider: 03/23/24 12:04 History of Present Illness HPI narrative: Patient is a 78-year-old male with history of kidney cancer, status post nephrectomy, subsequent end-stage renal disease on hemodialysis Thursday, Thursday, Thursday, prior colon cancer status post colectomy with colostomy placement here with nausea, dry heaves, abdominal pain, loss of appetite. Patient states that he was feeling his normal self and did his normal dialysis run on Thursday. After he got home he ate some pizza and notes that his symptoms started shortly after. He was worried that he may have developed food poisoning. He did speak with his principal architectural firm, Dr. Conner, regarding the symptoms, advised a monitor and read them out as they should subside on their own. Today he drove himself to his morning dialysis again and he did complete a full run. He states that his weight was low for him when he started dialysis and does not believe that they took a large volume off during dialysis. After dialysis he had low blood pressures and was unable to ambulate due to weakness and this prompted them to recommend he come to the emergency department for evaluation. His friend/caregiver at bedside promptly brought him to the emergency department for evaluation. He currently is endorsing some diffuse abdominal pain. He had decrease ostomy output which he suspects is due to decreased p.o. intake. He does not make urine. He denies any cough, congestion, fever, chills, chest pain, shortness of breath. Related Data Home Medications Medication Instructions Recorded Confirmed allopurinol 100 mg tablet 100 mg PO DAILY 06/17/21 06/17/21 aspirin 81 mg tablet,delayed 81 mg PO DAILY 06/17/21 06/17/21 release (Adult Low Dose Aspirin) cholecalciferol (vitamin D3) 50 50 mcg PO DAILY 06/17/21 06/17/21 mcg (2,000 unit) tablet clonidine 0.2 mg/24 hr weekly 1 patch transdermal DIRECTED 06/17/21 06/17/21 transdermal patch diltiazem HCl 360 mg capsule,24 360 mg PO DAILY 06/17/21 06/17/21 hr,extended release ferrous sulfate 325 mg (65 mg 325 mg PO DAILY 06/17/21 06/17/21 iron) tablet folic acid 1 mg tablet 1 mg PO DAILY 06/17/21 06/17/21 furosemide 80 mg tablet (Lasix) 80 mg PO DAILY 06/17/21 06/17/21 hydralazine 100 mg tablet 100 mg PO DIRECTED 06/17/21 06/17/21 simvastatin 20 mg tablet 20 mg PO DAILY 06/17/21 06/17/21 Allergies Allergy/AdvReac Type Severity Reaction Status Date / Time No Known Allergies Allergy Verified 06/25/21 10:12 Review of Systems Review of Systems: All systems reviewed & are unremarkable except as noted in HPI and below PMFSH Past Medical History Medical History ESRD on dialysis History of kidney cancer Hypertension Surgical History Surgical History H/O colectomy Subtotal colectomy with end ileostomy History of nephrectomy Social History Social History Smoking packs per day: 0.5 Smoking cigarettes per day: 10.0 Years smoked: 52 Smoking pack-years: 26.00 Smoking status: Current some day smoker Second hand tobacco smoke exposure: Yes Alcohol intake: former Substance use: never Spiritual care concerns: No Exam Narrative: GENERAL: Well-appearing, well-nourished, and in no acute distress. HEAD: Normocephalic, atraumatic. EYES: PERRLA and EOMI. Chronic appearing extensive corneal clouding on the left. ENT: Nares clear. Mucous membranes moist. NECK: Supple. CHEST: Clear to auscultation. No respiratory distress. HEART: Regular rate and rhythm. Normal peripheral pulses. ABDOMEN: Soft, diffuse tenderness, no rebound or guarding. Ostomy present mid right abdomen. Small amount of dark ostomy output present. EXTREMITIES: Normal range of mot
--- NOTE | 2024-03-23 12:10 | ECG_ITS ---
Test Date: 2024-03-23 12:22:34 Measurements Intervals [place] Rate: 85 P: 0 GA: 0 QRS: -47 QRSD: 156 T: 38 QT: 384 QTc: 457 Interpretive Statements ATRIAL FLUTTER/TACHYCARDIA RIGHT BUNDLE BRANCH BLOCK [120+ ms QRS DURATION, UPRIGHT V1, 40+ ms S IN I/aVL/V4/V5/V6] LEFT ANTERIOR FASCICULAR BLOCK [QRS AXIS <= -45, QR IN I, RS IN II] MINIMAL VOLTAGE CRITERIA FOR LVH, CONSIDER NORMAL VARIANT [MEETS CRITERIA IN ONE OF: R(aVL), S(V1), R(V5), R(V5/V6)+S(V1)] No previous ECG available for comparison Electronically Signed On 03-23-2024 13:55:42 CDT by Jonathan Garcia M.D.
[2024-03-23] MEDS: ONDANSETRON INJ 4 MG/2 ML VIAL IV PUSH (12:22)
[2024-03-23 12:25] LABS: Hematocrit 34.5 % (42.0-52.0); Hemoglobin 11.4 g/dL (14.0-18.0); Mean Corpuscular Hemoglobin 33.9 pg (26-34); Mean Corpuscular Volume 102.7 fl (80-100); Mean Platelet Volume 9.9 fl (7.4-10.4); Platelet Count Result 185 k/mm3 (150-375); Red Blood Count 3.36 M/mm3 (4.6-6.20); Red Cell Distribution Width 14.1 % (11.5-14.5); White Blood Count 17.8 K/mm3 (4.5-10.0)
[2024-03-23] MEDS: SODIUM CHLORIDE 0.9% IV 1,000 ML 999 ML IV CONT ×2 (12:31→13:53)
[2024-03-23 12:32] LABS: Fractional Inspired Oxygen 21 %; HCO3 VBG 26.9 mEq/l (24.0-30.0); PCO2 VBG 35.3 mmHg (42.0-48.0); PO2 VBG 38.3 mmHg (35.0-45.0)
[2024-03-23 12:36] LABS: Alanine Aminotransferase 13 U/L (6-50); Albumin Level 4.2 g/dL (3.5-5.1); Alkaline Phosphatase 76 U/L (38-126); Anion Gap 13 mmol/L (4-12); Aspartate Amino Transferase 23 U/L (17-59); Bilirubin,Total 1.4 mg/dL (0.2-1.3); Blood Urea Nitrogen 27 mg/dL (9-20); Calcium 8.8 mg/dL (8.4-10.2); Carbon Dioxide 28 mmol/L (22-30); Chloride 93 mmol/L (98-107); Estimated CRCL calculation 10 ml/min; Estimated Glomerular Filt Rate 9; Glucose 111 mg/dL (65-110); Lipase 193 U/L (23-300); Potassium 4.3 mmol/L (3.4-5.0); Sodium 134 mmol/L (137-145)
[2024-03-23 12:37] LABS: Device ROOM AIR
[2024-03-23 12:43] LABS: Lactic Acid Reflex 2.9 mmol/L (0.7-2.0)
[2024-03-23 12:46] LABS: INR 1.4; Prothrombin Time 17.1 Seconds (11.1-14.7)
[2024-03-23 12:47] LABS: Partial Thromboplastin Time 36.5 Seconds (22.3-36.8)
[2024-03-23 12:49] LABS: Band Neutrophils Percent 1 % (0-6); Lymphocytes Absolute Manual 0.71 K/mm3 (1.1-4.5); Monocytes Absolute Manual 0.35 K/mm3 (0.1-0.90); Monocytes Percent Manual 2 % (3-9); Neutrophils Absolute Manual 16.73 K/mm3 (1.3-6.7); Neutrophils Percent Manual 93 % (46-73); Platelet Estimate Adequate (Adequate); Schistocytes None Seen; Total Cells Counted 100
[2024-03-23] MEDS: CEFEPIME 2 GM/NS 50 ML 2 GM/50 ML BAG IVPB (12:50)
[2024-03-23 12:57] LABS: Troponin I 0.019 ng/mL (0.000-0.034)
[2024-03-23 13:12] LABS: Influenza A QL RT-PCR Negative (Negative); Influenza B QL RT-PCR Negative (Negative); RSV RNA, RT-PCR Negative (Negative); SARS-CoV-2 RNA PCR Negative (Negative)
[2024-03-23] MEDS: metroNIDAZOLE 500 MG/ISO 100ML 500 MG/100 ML BAG 100 MG IVPB (13:36)
[2024-03-23] MEDS: HYDROmorphone HCL INJ (*CRX) 1 MG/ML SYR IV PUSH ×2 (14:25→18:03)
[2024-03-23] MEDS: VANCOMYCIN 2,000 MG/NS 500 ML 2,000 MG/500 ML BAG 250 MG IVPB (14:26)
--- NOTE | 2024-03-23 15:14 | PM.CNGS ---
Assessment and Plan Assessment and plan (1) Emphysematous cholecystitis: Code(s): K81.0 - Acute cholecystitis Status: Acute Assessment and Plan: CT showing evidence of emphysematous/gangrenous cholecystitis. He has been having abdominal pain for the past 2 days and is tender in the RUQ on exam with localized peritoneal signs. We would recommend proceeding with placement of percutaneous cholecystostomy tube in Radiology and continue broad-spectrum IV antibiotics. Will keep him NPO today for procedure. Repeat labs again tomorrow and continue to monitor with serial abdominal exams. (2) Sepsis: Code(s): A41.9 - Sepsis, unspecified organism Status: Acute Assessment and Plan: Presented with leukocytosis, mild tachypnea, mild elevation in lactic acid, and hypotension in the setting of emphysematous cholecystitis. Blood cx ordered. Recommend proceeding with percutaneous cholecystostomy tube placement for source control. Continue broad-spectrum IV antibiotics. Blood pressure improved with IV fluid boluses in the ER. (3) ESRD on dialysis: Code(s): N18.6 - End stage renal disease; Z99.2 - Dependence on renal dialysis Status: Acute Assessment and Plan: Hx kidney cancer s/p right nephrectomy over 5 years ago now with ESRD on hemodialysis. Will need Nephrology consulted for management. (4) Ileostomy in place: Code(s): Z93.2 - Ileostomy status Status: Acute Assessment and Plan: S/p subtotal colectomy at the [facility] years ago. Ileostomy is functioning well. Plan I have discussed the patient's case and plan of care with Dr. Napier. Thank you for allowing us to see the patient in consultation and we will continue to follow along with you. History of Present Illness Consult details Consult date: 03/23/24 Reason for consult: other (Emphysematous cholecystitis) Requesting physician: Gabrielle Antonio MD Narrative: This is a 78-year-old man with history of kidney cancer status post right nephrectomy with end-stage renal disease on hemodialysis in other medical problems, who presented to the ER today with complaints abdominal pain and nausea. He reportedly ate a frozen pizza around lunchtime 2 days ago after dialysis. He began to develop upper abdominal pain throughout the day. No aggravating or radiating factors. He reports associated nausea and dry heaving. Symptoms continued into the next day. Today, he went to dialysis again. He spoke with a provider there and they recommended evaluation in the ER. In the ER, he is afebrile, heart rate normal, mild tachypnea in the low 20s, oxygen saturation stable on room air, and a low blood pressure of 98/53. He was given 2 L of IV fluids and blood pressure improved. [place] [address], hemoglobin 11.4, hematocrit 34.5, INR 1.4, BUN 27, creatinine 6.1, lactic acid 2.9, total bilirubin 1.4, AST 23, ALT 13, alk-phos 76, and lipase 193. Influenza, RSV, and COVID negative. CT scan of the abdomen and pelvis showed gangrenous/emphysematous cholecystitis with secondary portal venous gas, small sliding hiatal hernia, prostatomegaly, status post right nephrectomy with moderate atrophy of the remaining left kidney, and subtotal colectomy with end ileostomy. Our service was consulted by the ED physician for the gangrenous/emphysematous cholecystitis. He is now seen in the ER. He is oriented x3 and able to provide recent history, but he is unable to give any details on previous surgical history or medical history. He reports his friend, Risa, helps keep track of his health records and is not at the bedside at this time. He had an injury to his left eye in [place] and it was removed. He has a remote history of a subtotal colectomy at the [facility], but is unsure why he had this surgery. His nephrectomy was at [facility] around 5-6 years ago and he has been on hemodialysis for the past few years. He goes to [facility]. Review of Systems Revi
[2024-03-23 15:32] LABS: Reflex Lactic Acid Yes or No Add Lactic
[2024-03-23 16:13] LABS: Lactic Acid 1.2 mmol/L (0.7-2.0)
[2024-03-23] MEDS: LACTATED RINGERS 500 ML 999 ML IV CONT (16:21)
--- NOTE | 2024-03-23 19:05 | PC.NURSE ---
[facility] to [facility]th floor ICU w/ nurse report to be called to [phone] Nicole Buenrostro. Per EDP Dr Antonio, pt is currently needing to start Levophed, spoke w/ changes to Dr Buenrostro who now declines to accept pt due to pt condition. [facility] declining [facility] at [facility] time.
--- NOTE | 2024-03-23 19:33 | PM.IMHP ---
H&P: HPI History of Present Illness Date/Time: 03/23/24 19:33 Chief Complaint: Abdominal pain Narrative: This is a 78-year-old male with past medical history significant for colon cancer, kidney cancer, end-stage renal disease on hemodialysis comes, colostomy. patient presents to the emergency room due to hypotension after dialysis unable to ambulate, generalized weakness. Preliminary workup in the emergency room was significant for CT of abdomen and pelvis with a gangrenous gallbladder. Patient was hypotensive required central venous catheter placement for vasopressor support. Patient was unable to contribute in a meaningful way to history taking due to altered mental status with obtundation and lethargy. XR chest 2V 03/23/2024 13:01 Indication: Dialysis patient. Weakness. Procedure: AP and lateral views the chest Comparison: 06/17/2021 Findings: Borderline heart size. There is pulmonary vascular indistinctness in the lung bases suggesting mild edema. No significant effusion. No pneumothorax. No acute osseous abnormality. Impression: 1: Borderline heart size with possible mild interstitial edema. EXAMINATION: CT abdomen pelvis w con DATE: 03/23/2024 13:13 INDICATION: Sepsis TECHNIQUE: Computed tomography (CT) of the abdomen and pelvis was performed with 100 mL Omnipaque-350 intravenous contrast. Automated exposure control and iterative reconstruction technique were employed. The dose-length product was 1155.87 mGy-cm. COMPARISON: None FINDINGS: Bibasilar atelectasis, left greater than right with some associated volume loss in the left lower lobe. Heart size is normal. Atherosclerotic coronary artery calcification. There is also aortic valve calcific location. No pericardial or pleural effusion. Small sliding-type hiatal hernia. Gallbladder is dilated with extensive gas within the thickened gallbladder wall consistent with emphysema/gangrenous cholecystitis. Layering sludge and gallstones in the dependent and gas within the nondependent gallbladder. There is likely secondary portal venous gas primarily in the nondependent left hepatic lobe. Liver is otherwise normal. There is prominent inflammatory stranding about the gallbladder with some additional mesenteric stranding and nonloculated likely reactive ascites in the right abdomen. No abscess or free intraperitoneal gas. Pancreas, spleen and right adrenal gland are normal. 8 mm macroscopic fat attenuation left adrenal myelolipoma. Status post right nephrectomy and moderate atrophy of the remaining left kidney. A couple left renal cysts the larger measuring 1.6 cm. Subtotal colectomy with right lower quadrant and ileostomy and fluid-filled Lozoya's pouch. Tarsi decompressed bladder is unremarkable. Prostatomegaly measuring 5 x 4 cm. Mildly prominent but still normal-sized likely reactive periportal and portacaval lymph nodes. No pathologically enlarged abdominal or pelvic lymphadenopathy. Old healed right acetabular fracture with screw fixation. Lumbar spondylosis, severe with anterior and posterior fusion at L5-S1 and mild to moderately more cephalad lumbar and lower thoracic spine. IMPRESSION: 1. Gangrenous/emphysematous cholecystitis with secondary portal venous gas. Dr. Wren discussed these findings with Dr. Antonio at 1:30 PM. 2. Small sliding-type hiatal hernia. 3. Prostatomegaly. 4. Status post right nephrectomy with moderate atrophy at the remaining left kidney. 5. Subtotal colectomy with Lozoya's pouch and right lower quadrant and ileostomy. EXAMINATION: CT guide absc cath placement DATE: 03/23/2024 17:54 INDICATION: Emphysematous/gangrenous cholecystitis. TECHNIQUE: The procedure including the risks and benefits was discussed with the patient. Risks discussed included bleeding and infection. The patient understood the risks and benefits and agreed to proceed. The patient was confirmed to be receiving appropriate antibiotic coverage. The skin overly
[2024-03-23] MEDS: NOREPINEPHRINE 8 MG/D5W 250 ML 8 MG/250 ML BAG 9.38 MG IV CONT (19:48)
--- NOTE | 2024-03-23 19:50 | PC.NURSE ---
Verbal order from EDP Dr. Antonio to start Levophed drip peripherally until placement of central line.
[2024-03-23] MEDS: ACETAMINOPHEN 650 MG SUPPOSITORY RECTAL (20:52)
--- NOTE | 2024-03-23 21:04 | PC.NURSE ---
Verbal order from EDP Dr. Antonio ok to use central line. Levophed changed to central line at this time
--- NOTE | 2024-03-23 22:12 | PC.NURSE ---
This RN contacted Pts son Pierre who is pt POA. Son updated on pts condition and plan of care. Son requested he be called with any change in pt condition, [employer] made aware.
--- NOTE | 2024-03-23 23:08 | ADMGEN ---
This patient, Balwinder Mora, was admitted to Intensive Care Unit-5. Patient/family oriented to hospital policies and general routines including ID bracelet, bed and alarms, visiting hours, pain management, procedures, bathroom and other care routines, personal items, smoking policy, room service/diet, and visiting hours. Information on how to activate the Rapid Response Team has been discussed. Patient/Family are encouraged to report perceived risks to care and to ask questions if they do not understand what they are told or what they should do.
[2024-03-24] VITALS (39 sets, daily range): BP systolic 93–138; BP diastolic 35–105; PULSE 71–119; RESP 15–26; TEMP 36.2–37.7; O2SAT 88–98
[2024-03-24] MEDS: VASOPRESSIN INJ 100 UNITS in DEXTROSE 5% 95 ML IV CONT
--- NOTE | 2024-03-24 | ECHO_ITS ---
Patient Info Name: Balwinder Mora Age: 78 years : 1945 Gender: Male Ht: 72 in Wt: 216 lbs BSA: 2.25 m2 HR: 94 bpm BP: 106 / 56 mmHg Heart Rhythm: Atrial Fibrillation Technical Quality: Fair Exam Date: 03/24/2024 4:03 PM Exam Location: Echo Lab Patient Status: Inpatient Admit Date: 03/23/2024 Staff Ordering Physician: Nadir Murguia MD Charge Account Clerk: Breanna Hull RDCS Attending Provider: Noemi Downing MD Referring Physician: Shantal SANTAMARIA; Exam Type: CA echo dop color flow w con Study Info Indications - afib Complete two-dimensional, color flow and Doppler transthoracic echocardiogram is performed with contrast to opacify the left ventricle and to improve the deliniation of the left ventricle endocardial borders. Contrast/Agitated Saline Contrast/Ag. Saline: Definity Amount: 3.00 ml Administered By: Breanna Hull RDCS Existing IV Access: Yes IV Access Condition: patent with no signs of infiltration Summary 1. Left ventricular hypertrophy with vigorous systolic contractility. 2. Moderate left atrial enlarged. 3. Severe right atrial enlarged. 4. Mild RV enlargement with RV hypokinesia. 5. Fibrocalcific thickening of the aortic valve leaflets with very mild stenosis. 6. Aortic root enlargement , diameter 4.2 cm. 7. Atrial fibrillation. 8. Definity contrast used to improve visualization. Left Ventricle Left ventricular chamber dimension is normal. Left ventricular systolic function is normal, estimated at 60-65%. There is mild concentric increased left ventricular wall thickness. The left ventricular diastolic function is indeterminate. Right Ventricle Right ventricular chamber dimension is mildly enlarged. Left Atria Left atrial chamber dimension is moderately enlarged. Right Atria Right atrial chamber dimension is severely enlarged. Aortic Valve The aortic valve is trileaflet. There is severe aortic valve sclerosis. There is mild aortic valve stenosis with a peak velocity of 242.24 cm/s, mean gradient of 12 mmHg, and aortic valve area of 2.34 cm2. Pulmonic Valve The pulmonic valve is not well visualized. Mitral Valve The mitral valve has normal leaflets. Tricuspid Valve The tricuspid valve leaflets are normal. There is mild tricuspid valve regurgitation. Pericardium/Pleural The pericardium appears normal. Aorta The aortic root size at the sinus of Valsalva is normal. Left Ventricular Outflow Tract Name Value Normal LVOT 2D LVOT Diameter 2.21 cm LVOT Doppler LVOT Peak Gradient 8 mmHg LVOT Mean Gradient 4 mmHg LVOT VTI 21.99 cm LVOT VTI/AV VTI Ratio 0.61 LVOT Stroke Volume 84.68 ml LVOT CO 6.76 l/min LVOT CI 3.00 L/min/m2 Pulmonic Valve Name Value Normal RVOT Doppler
[2024-03-24] MEDS: NOREPINEPHRINE 8 MG/D5W 250 ML 8 MG/250 ML BAG 26.25 MG IV CONT (04:13)
[2024-03-24] MEDS: ALBUMIN HUMAN 25% 25 GM/100 ML 100 ML IVPB ×4 (06:33→17:01)
[2024-03-24 06:48] LABS: Hematocrit 30.4 % (42.0-52.0); Hemoglobin 9.9 g/dL (14.0-18.0); Mean Corpuscular HGB Conc 32.6 g/dl (32-36); Mean Corpuscular Hemoglobin 33.9 pg (26-34); Mean Corpuscular Volume 104.1 fl (80-100); Mean Platelet Volume 9.9 fl (7.4-10.4); Platelet Count Result 158 k/mm3 (150-375); Red Blood Count 2.92 M/mm3 (4.6-6.20); Red Cell Distribution Width 14.3 % (11.5-14.5); White Blood Count 12.1 K/mm3 (4.5-10.0)
[2024-03-24 07:06] LABS: Anion Gap 12 mmol/L (4-12); Blood Urea Nitrogen 41 mg/dL (9-20); Calcium 8.2 mg/dL (8.4-10.2); Carbon Dioxide 24 mmol/L (22-30); Chloride 97 mmol/L (98-107); Estimated CRCL calculation 8 ml/min; Estimated Glomerular Filt Rate 7; Glucose 90 mg/dL (65-110); Magnesium 2.2 mg/dL (1.6-2.3); Phosphorus 6.9 mg/dL (2.5-4.5); Potassium 4.9 mmol/L (3.4-5.0); Sodium 133 mmol/L (137-145)
--- NOTE | 2024-03-24 08:36 | WPDCNINT ---
Assessment and Plan Assessment and plan (1) Septic shock: Code(s): A41.9 - Sepsis, unspecified organism; R65.21 - Severe sepsis with septic shock Status: Acute Assessment and Plan: Septic shock likely related to necrotic gallbladder -patient received 2 L IV fluid bolus in the ER, patient is a dialysis patient is a a be cautious with IV fluids -continue to wean wheezing present and Levophed to maintain MAP > 65 mmHg for adequate end organ perfusion -03/23: Blood cultures been obtained pending -03/23: Cultures from gallbladder drainage has been obtained -continue cefepime vancomycin and Flagyl (03/23) -lactic acid has normalized (2) Emphysematous cholecystitis: Code(s): K81.0 - Acute cholecystitis Status: Acute Assessment and Plan: Necrotic gallbladder on CT scan of the abdomen and pelvis on admission - status post cholecystectomy tube on 03/23/2024 -surgery following the patient -discuss with surgery, may start clear liquid diet 03/23/2024: CT scan of the abdomen and pelvis IMPRESSION: 1. Gangrenous/emphysematous cholecystitis with secondary portal venous gas. Dr. Wren discussed these findings with Dr. Antonio at 1:30 PM. 2. Small sliding-type hiatal hernia. 3. Prostatomegaly. 4. Status post right nephrectomy with moderate atrophy at the remaining left kidney. 5. Subtotal colectomy with Lozoya's pouch and right lower quadrant and ileostomy. (3) ESRD on dialysis: Code(s): N18.6 - End stage renal disease; Z99.2 - Dependence on renal dialysis Status: Acute Assessment and Plan: Nephrology has been consulted, patient does receive dialysis on Thursday, Thursday, Thursday -will leave it up to Nephrology for scheduling dialysis -electrolytes are stable at this time Plan DVT prophylaxis: Heparin Stress ulcer prophylaxis: Not indicated Nutrition: Currently NPO Code Status: Full code Critical Care Time Spent: 49 minutes Discussed with surgery Due to a high probability of clinically significant, life threatening deterioration, the patient required my highest level of preparedness to intervene emergently and I personally spent this critical care time directly and personally managing the patient. This critical care time included obtaining a history; examining the patient; pulse oximetry; ordering and review of studies; arranging urgent treatment with development of a management plan; evaluation of patient's response to treatment; frequent reassessment; and discussions with other providers. It was exclusive of separately billable procedures and treating other patients and teaching time. Please see Assessment and Plan section and the rest of the note for further information on patient assessment and treatment This dictation may have been done utilizing a voice recognition system. Attempts have been made to correct errors. However, there may be uncorrected grammatical, spelling, and recognitions errors present. Negative Checker Consult Note Consult date: 03/24/24 Reason for consult: Septic shock, necrotic gallbladder, abdominal pain, hypovolemia, HPI: Balwinder Mora is a 78 year old male past medical history of end-stage renal disease on dialysis (M, W, F), history of kidney cancer status post nephrectomy, history of subtotal colectomy and end ileostomy, essential hypertension presented the ED on 03/23/2024 with complains of abdominal pain, dry heaves, loss of appetite for the last 3 days. On 03/23/2024 he had low pressures and dialysis and was unable to ambulate due to weakness that prompted him to come to the [facility] ER. In the ER patient was afebrile, tachypnea, normal heart rate, good O2 sats on room air. Systolic blood pressures in the 90s, was given 2 L IV fluid bolus. WBC count was 17.8, hemoglobin 11.4, 0.4, BUN 27, creatinine 6.1, lactic acid 2.9, total bili 1.4, AST 23, ALT 13, alk-phos 76 lipase was 193. Influenza, RSV and COVID PCR were negative. 03/23/2024: On admi
--- NOTE | 2024-03-24 09:24 | ECG_ITS ---
Test Date: 2024-03-24 09:45:19 Measurements Intervals [place] Rate: 86 P: 0 NC: 0 QRS: -43 QRSD: 172 T: 51 QT: 401 QTc: 480 Interpretive Statements ATRIAL FIBRILLATION MARKED LEFT AXIS DEVIATION [QRS AXIS < -30] RIGHT BUNDLE BRANCH BLOCK [120+ ms QRS DURATION, UPRIGHT V1, 40+ ms S IN I/aVL/V4/V5/V6] MODERATE VOLTAGE CRITERIA FOR LVH, CONSIDER NORMAL VARIANT [MEETS CRITERIA IN ONE OF: R(aVL), S(V1), R(V5), R(V5/V6)+S(V1)] Compared to ECG 03/23/2024 12:22:34 ATRIAL FIBRILLATION NOW PRESENT Electronically Signed On 03-24-2024 12:45:19 CDT by Jonathan Garcia M.D.
--- NOTE | 2024-03-24 10:28 | PM.PNGS ---
Progress Note: A&P Assessment and Plan (1) Emphysematous cholecystitis: Code(s): K81.0 - Acute cholecystitis Status: Acute Assessment and Plan: Emphysematous/gangrenous cholecystitis s/p percutaneous cholecystostomy tube placement in Radiology on 03/23. He is clinically improving after having the drain placed and his WBC is trending down to 12,000 today. He is in ICU for his septic shock/hypotension and is still on vasopressors, but they are being weaned down this morning. Will start him on a clear liquid diet today. He will likely require an eventual interval cholecystectomy, which can be done at the [facility] as an outpatient if he continues to improve with current treatment. (2) Sepsis: Code(s): A41.9 - Sepsis, unspecified organism Status: Acute Assessment and Plan: Secondary to emphysematous cholecystitis. S/p source control with cholecystotomy tube and clinically improving. WBC trending down. Lactic acid normalized. Vasopressors being weaned down. Continue broad-spectrum IV antibiotics. Blood cx pending. Continue critical care management. (3) ESRD on dialysis: Code(s): N18.6 - End stage renal disease; Z99.2 - Dependence on renal dialysis Status: Acute Assessment and Plan: Dialysis per Nephrology. (4) Ileostomy in place: Code(s): Z93.2 - Ileostomy status Status: Acute Assessment and Plan: S/p subtotal colectomy at the [facility] years ago. Ileostomy is functioning well. (5) Atrial fibrillation: Code(s): I48.91 - Unspecified atrial fibrillation Status: Acute Assessment and Plan: No known history of afib, although patient is a poor historian with his medical history. He is rate-controlled this morning. Cardiology is being consulted by the Business Technology Architect. He is not currently on any anticoagulation. If Cardiology feels he needs to be fully anticoagulated, then we would recommend using heparin that could be stopped if he ended up requiring any surgical intervention in the next few days. Plan I have discussed the patient's case and plan of care with Dr. Napier. Subjective Subjective Date/Time Seen: 03/24/24 10:28 Patient reports: no new complaints, feels better, pain is less, bowel movement (ostomy functioning well) and fever (Tmax 101.7F last night) Interval history: Patient is feeling better s/p perc cholecystostomy tube placement. His abdominal pain is reportedly much better. No nausea or vomiting. He is in ICU due to hypotension and requiring vasopressor support. Per Business Technology Architect, his vasopressors have been weaned down this morning. Exam Const: General: comfortable and no acute distress Orientation/consciousness: patient oriented x3 Neck: Other: Left IJ central line GI: Inspection: non-distended and other (RLQ ileostomy functioning well with brown stool in bag) GI Palp: Yes Soft to palpation, Yes Tenderness to palpation present (GI) (RUQ and RLQ, improved from his exam yesterday) and Yes Guarding due to palpation present (GI) (Right upper and mid abdomen over the area of the gallbladder) Auscultation: normal bowel sounds Other: Cholecystostomy tube with bilious-appearing output Objective Data Vital Signs Vital Signs: Vital Signs - 24 hr 03/23/24 11:49 03/23/24 12:17 03/23/24 12:52 Temperature 97.9 F Pulse Rate 79 89 89 Respiratory Rate 19 23 H 27 H Blood Pressure 98/53 L 89/45 L 87/43 L Pulse Oximetry 97 94 93 Oxygen Delivery Room Air Oxygen Flow Rate Fraction of Inspired Oxygen 03/23/24 13:31 03/23/24 14:29 03/23/24 15:00 Temperature Pulse Rate 84 84 89 Respiratory Rate 20 18 20 Blood Pressure 124/55 L 108/54 L 108/54 L Pulse Oximetry 96 96 98 Oxygen Delivery Oxygen Flow Rate Fraction of Inspired Oxygen 03/23/24 16:13 03/23/24 18:00 03/23/24 18:27 Temperature 98.6 F Pulse Rate 92 113 H 129 H Respiratory Rate 21 H 20 26 H Blood Pressure 96/48 L 135/100 H 110/81 Pulse Oximetry 94 97
[2024-03-24 10:30] LABS: Device NASAL CANNULA; Fractional Inspired Oxygen 24 %; HCO3 VBG 24.6 mEq/l (24.0-30.0); PCO2 VBG 43.3 mmHg (42.0-48.0); PO2 VBG 51.9 mmHg (35.0-45.0); pH VBG 7.372 (7.300-7.400)
[2024-03-24] MEDS: MEROPENEM 1 GM/NS 100 ML 1 GM/100 ML BAG IVPB (11:26)
[2024-03-24 11:29] LABS: MRSA (PCR) NOT DETECTED (NOT DETECTE)
--- NOTE | 2024-03-24 12:30 | P.CONNP_ITS ---
Assessment and Plan Assessment and plan (1) End stage renal disease: Code(s): N18.6 - End stage renal disease Status: Chronic Assessment and Plan: * plan HD tomorrow * continue outpatient dialysis schedule of Thu/Thu/Thursday * follow trend of electrolytes, volume status, and clearance (2) Septic shock: Code(s): A41.9 - Sepsis, unspecified organism; R65.21 - Severe sepsis with septic shock Status: Acute Assessment and Plan: * presumably secondary to #3 * s/p IVF resuscitation * on vasopressor support - wean as tolerated * follow blood/gallbladder drainage culture data * continue IV antibiotics * follow trend of hemodynamics (3) Emphysematous cholecystitis: Code(s): K81.0 - Acute cholecystitis Status: Acute Assessment and Plan: * as noted by admission CT scan: * Gangrenous/emphysematous cholecystitis with secondary portal venous gas * s/p cholecystectomy tube placement on 03/23 by IR * General Surgery following * follow gallbladder drainage cultures * continue antibiotics * advance diet as tolerated (4) Anemia: Code(s): D64.9 - Anemia, unspecified Status: Chronic Assessment and Plan: * due to ESRD and likely worsened by acute illness * Epogen with HD * follow trend of H/H (5) Atrial fibrillation: Code(s): I48.91 - Unspecified atrial fibrillation Status: Acute Assessment and Plan: * as noted by telemetry * distant history per patient * rate controlled at this time * on anticoagulation (heparin gtt) (6) Generalized weakness: Code(s): R53.1 - Weakness Status: Acute Assessment and Plan: * secondary to acute illness/sepsis and hemodynamic instability * hopefully should improve with ongoing therapy * continue supportive care I will continue follow patient with you while he is he remains hospitalized and make further recommendations as deemed necessary. Thank you for allowing me to participate in the care of this patient. History of Present Illness Reason for Consult Consult date: 03/24/24 Reason for consult: end stage renal disease Chief Complaint Chief complaint: Gangrenous cholecystitis, Hypotension History of Present Illness Narrative: The patient is a 78-year-old male with a past medical history as outlined below who presented to [facility] Emergency room yesterday afternoon with complaints of low blood pressure in association with abdominal pain. The patient went to his regularly scheduled outpatient dialysis treatment yesterday and initially reported that he felt sick to his stomach and thought it was related to a possible stomach flu or something that he ate. the symptoms apparently started about three days ago and since that time he is noted some increasing abdominal pain in association with dry heaves and poor appetite. During his scheduled dialysis treatment yesterday, he had issues and problems with hypotension that necessitated ending his treatment somewhat early. Despite a boarding his dialysis treatment, his systolic BP remained somewhat low in the 80 systolic. Unfortunately, due to the low blood pressure and his already associated weakness, he was unable to ambulate. He was subsequently taken to the emergency room for further assessment. Workup and evaluation in the emergency room demonstrated the patient was afebrile but had relative hypotension with blood pressures in the 90 systolic in association with mild tachypnea but his heart rate and oxygenation were stable. He was given IV fluid boluses in
--- NOTE | 2024-03-24 12:30 | PM.CNNEP ---
Assessment and Plan Assessment and plan (1) End stage renal disease: Code(s): N18.6 - End stage renal disease Status: Chronic Assessment and Plan: plan HD tomorrow continue outpatient dialysis schedule of Thu/Thu/Thursday follow trend of electrolytes, volume status, and clearance (2) Septic shock: Code(s): A41.9 - Sepsis, unspecified organism; R65.21 - Severe sepsis with septic shock Status: Acute Assessment and Plan: presumably secondary to #3 s/p IVF resuscitation on vasopressor support - wean as tolerated follow blood/gallbladder drainage culture data continue IV antibiotics follow trend of hemodynamics (3) Emphysematous cholecystitis: Code(s): K81.0 - Acute cholecystitis Status: Acute Assessment and Plan: as noted by admission CT scan: Gangrenous/emphysematous cholecystitis with secondary portal venous gas s/p cholecystectomy tube placement on 03/23 by IR General Surgery following follow gallbladder drainage cultures continue antibiotics advance diet as tolerated (4) Anemia: Code(s): D64.9 - Anemia, unspecified Status: Chronic Assessment and Plan: due to ESRD and likely worsened by acute illness Epogen with HD follow trend of H/H (5) Atrial fibrillation: Code(s): I48.91 - Unspecified atrial fibrillation Status: Acute Assessment and Plan: as noted by telemetry distant history per patient rate controlled at this time on anticoagulation (heparin gtt) (6) Generalized weakness: Code(s): R53.1 - Weakness Status: Acute Assessment and Plan: secondary to acute illness/sepsis and hemodynamic instability hopefully should improve with ongoing therapy continue supportive care I will continue follow patient with you while he is he remains hospitalized and make further recommendations as deemed necessary. Thank you for allowing me to participate in the care of this patient. History of Present Illness Reason for Consult Consult date: 03/24/24 Reason for consult: end stage renal disease Chief Complaint Chief complaint: Gangrenous cholecystitis, Hypotension History of Present Illness Narrative: The patient is a 78-year-old male with a past medical history as outlined below who presented to [facility] Emergency room yesterday afternoon with complaints of low blood pressure in association with abdominal pain. The patient went to his regularly scheduled outpatient dialysis treatment yesterday and initially reported that he felt sick to his stomach and thought it was related to a possible stomach flu or something that he ate. the symptoms apparently started about three days ago and since that time he is noted some increasing abdominal pain in association with dry heaves and poor appetite. During his scheduled dialysis treatment yesterday, he had issues and problems with hypotension that necessitated ending his treatment somewhat early. Despite a boarding his dialysis treatment, his systolic BP remained somewhat low in the 80 systolic. Unfortunately, due to the low blood pressure and his already associated weakness, he was unable to ambulate. He was subsequently taken to the emergency room for further assessment. Workup and evaluation in the emergency room demonstrated the patient was afebrile but had relative hypotension with blood pressures in the 90 systolic in association with mild tachypnea but his heart rate and oxygenation were stable. He was given IV fluid boluses in the emergency room with some improvement in his systolic BP. Routine blood tests were done which demonstrated an elevated white blood cell count of 17.8, mild anemia with a hemoglobin 11.4, anemia, and a chemistry panel that was consistent with his known history of end-stage renal disease. His lactic acid was mildly elevated 2.9 and his LFTs were normal. Influenza/ RSV/Covid viral testing was negati
[2024-03-24] MEDS: HEPARIN SODIUM 5,000 UNITS/ML VIAL 7000 UNITS IV PUSH (13:20)
[2024-03-24] MEDS: HEPARIN SOD/D5W 100 UNITS/ML 25,000 UNITS/250 ML BAG 15 UNITS IV CONT (13:20)
[2024-03-24 13:35] LABS: Alanine Aminotransferase 48 U/L (6-50); Alkaline Phosphatase 57 U/L (38-126); Anion Gap 14 mmol/L (4-12); Aspartate Amino Transferase 97 U/L (17-59); Bilirubin,Total 1.2 mg/dL (0.2-1.3); Blood Urea Nitrogen 49 mg/dL (9-20); Calcium 8.5 mg/dL (8.4-10.2); Carbon Dioxide 23 mmol/L (22-30); Chloride 96 mmol/L (98-107); Glucose 124 mg/dL (65-110); Sodium 133 mmol/L (137-145)
[2024-03-24 13:51] LABS: Estimated CRCL calculation 8 ml/min; Estimated Glomerular Filt Rate 7
[2024-03-24 14:26] LABS: Basophils Percent Auto 0.4 % (0.2-1.2); Hematocrit 27.7 % (42.0-52.0); Immature Granulocyte Absolute 0.03 K/mm3 (0.00-0.031); Immature Granulocyte Percent A 0.3 % (0-0.5); Lymphocytes Absolute Auto 0.26 K/mm3 (0.9-3.2); Lymphocytes Percent Auto 2.8 % (18.3-44.2); Mean Corpuscular HGB Conc 32.5 g/dl (32-36); Mean Corpuscular Hemoglobin 33.8 pg (26-34); Mean Corpuscular Volume 104.1 fl (80-100); Mean Platelet Volume 10.2 fl (7.4-10.4); Monocytes Absolute Auto 0.8 K/mm3 (0.1-0.6); Neutrophils Absolute Auto 8.3 K/mm3 (1.3-6.7); Neutrophils Percent Auto 88.5 % (45.5-73.1); Platelet Count Result 157 k/mm3 (150-375); Red Blood Count 2.66 M/mm3 (4.6-6.20); Red Cell Distribution Width 14.3 % (11.5-14.5); White Blood Count 9.4 K/mm3 (4.5-10.0)
[2024-03-24 15:00] LABS: Anisocytosis 1+; Platelet Estimate Adequate (Adequate); Schistocytes None Seen
--- NOTE | 2024-03-24 15:39 | PM.CNCAR ---
Assessment and Plan Assessment and plan (1) Atrial fibrillation: Code(s): I48.91 - Unspecified atrial fibrillation Status: Acute Assessment and Plan: History of atrial fibrillation with prior Afib ablation at the [place]. He is rate controlled currently without any AV bobby blocking agents. He is not anticoagulated at this point. Per surgery, OK to anticoagulate with heparin for now, but eventually will need to be shifted to a DOAC when okay with surgery. At that point, he should be placed on apixaban 5mg b.i.d. (no dose adjustment for dialysis in his situation). Cardiology will sign off please call with any questions. He should follow up with his established certified health education specialist at the [place]. (2) Septic shock: Code(s): A41.9 - Sepsis, unspecified organism; R65.21 - Severe sepsis with septic shock Status: Acute Assessment and Plan: Secondary to gangrenous gallbladder. On pressors. (3) Hypotension: Qualifiers: Hypotension type: other hypotension type Qualified Code(s): I95.89 - Other hypotension Code(s): I95.9 - Hypotension, unspecified Status: Acute Assessment and Plan: On dual vasopressors. Management per critical care. History of Present Illness History of Present Illness Consult date/time: 03/24/24 15:39 Requesting physician: Nadir Murguia MD Consult reason: atrial fibrillation Reason For Visit: Gangrenous cholecystitis, Hypotension Narrative: Balwinder Mora is a 78 year old male with end state renal disease on hemodialysis, colon cancer, kidney cancer, and [facility] He comes to the hospital now with hypotension and altered mental status. He has been found to have gangrenous gallbladder. In this setting he developed atrial fibrillation. Despite being acutely ill and requiring vasopressors his heart rate has generally been well controlled. He takes Diltiazem at home for rhythm management but he is not anticoagulated and is unsure why. At this point he is feeling much better than yesterday and does not have any specific complaints at the time of my evaluation. He denies any palpitations, chest pain, shortness of breath. Lying comfortably in bed at this time with his at the bedside. Review of Systems Review of Systems: All systems reviewed & are unremarkable except as noted in HPI and below Constitutional: Constitutional: Denies chills, Denies fever(s), Denies headache(s) and Denies malaise Eyes: Eyes: Denies change in vision ENT: Reports Normal hearing present, Denies dizziness, Denies headache(s) and Denies hearing loss Cardiovascular: Cardiovascular: Denies chest pain, Denies chest pain at rest, Denies chest pain with activity, Denies syncope, Denies leg edema, Denies palpitations, Denies dyspnea and Denies dyspnea on exertion Respiratory: Respiratory: Denies cough, Denies dyspnea, Denies dyspnea on exertion and Denies wheezing Gastrointestinal: Gastrointestinal: Denies abdominal pain, Denies constipation and Denies diarrhea Genitourinary: Genitourinary: Denies hematuria and Denies dysuria Musculoskeletal: Musculoskeletal: Denies myalgias, Denies arthralgias and Denies muscle cramps Integumentary/Breasts: Skin/Breast: Denies wounds Neurologic: Reports Normal hearing present, Denies confusion, Denies dizziness, Denies syncope and Denies headache(s) Psychiatric: Psychiatric: Denies anxiety, Denies confusion and Denies depression Endocrine: Endocrine: Denies cold intolerance, Denies flushing, Denies heat intolerance and Denies palpitations Hematologic/Lymphatic: Hematologic/Lymphatic: Denies easy bleeding and Denies easy bruising Allergic/Immunologic: Allergic/Immunologic: Denies wheezing PMFSH Past Medical History Medical History ESRD on dialysis History of kidney cancer Hypertension Surgical History Surgical History (Revie
[2024-03-24] MEDS: PERFLUTREN LIPID MICROSPHERES 1.5 ML VIAL DILUTED TO 10 ML TOTAL VOLUME IV PUSH (16:30)
--- NOTE | 2024-03-24 17:23 | IVDEFINITY ---
Prior to administration of IV Definity the patient was educated on the risks and benefits of the imaging enhancing agent including potential adverse side effects. The patient verbalized understanding. Allergies were verified. No exclusion criteria were identified and at least one of the following inclusion criteria were met: 1) physician request, 2) patient technically difficult to image (per the [place] [employer] guidelines of two or more segments not discernable within the apical view), or 3) questionable left ventricular function. ?
[2024-03-24 20:11] LABS: Partial Thromboplastin Time 83.8 Seconds (22.3-36.8)
[2024-03-24 20:44] LABS: Glucose Point of Care 129 mg/dl (65-105)
[2024-03-25] VITALS (46 sets, daily range): BP systolic 88–138; BP diastolic 38–79; PULSE 67–89; RESP 15–71; TEMP 36.8–37.6; O2SAT 91–97
[2024-03-25] MEDS: NOREPINEPHRINE 8 MG/D5W 250 ML 8 MG/250 ML BAG 13.13 MG IV CONT
[2024-03-25 02:40] LABS: Basophils Percent Auto 0.5 % (0.2-1.2); Eosinophils Absolute Auto 0.1 K/mm3 (0-0.3); Eosinophils Percent Auto 0.6 % (0-4.4); Hematocrit 27.2 % (42.0-52.0); Hemoglobin 8.9 g/dL (14.0-18.0); Immature Granulocyte Absolute 0.04 K/mm3 (0.00-0.031); Immature Granulocyte Percent A 0.5 % (0-0.5); Lymphocytes Absolute Auto 0.36 K/mm3 (0.9-3.2); Lymphocytes Percent Auto 4.5 % (18.3-44.2); Mean Corpuscular HGB Conc 32.7 g/dl (32-36); Mean Corpuscular Hemoglobin 33.6 pg (26-34); Mean Corpuscular Volume 102.6 fl (80-100); Mean Platelet Volume 10.2 fl (7.4-10.4); Monocytes Absolute Auto 1.2 K/mm3 (0.1-0.6); Monocytes Percent Auto 14.5 % (2.6-8.5); Neutrophils Absolute Auto 6.3 K/mm3 (1.3-6.7); Neutrophils Percent Auto 79.4 % (45.5-73.1); Platelet Count Result 157 k/mm3 (150-375); Red Blood Count 2.65 M/mm3 (4.6-6.20); White Blood Count 7.9 K/mm3 (4.5-10.0)
[2024-03-25 02:52] LABS: Partial Thromboplastin Time 55.9 Seconds (22.3-36.8)
[2024-03-25 02:54] LABS: Alanine Aminotransferase 54 U/L (6-50); Alkaline Phosphatase 56 U/L (38-126); Anion Gap 16 mmol/L (4-12); Aspartate Amino Transferase 75 U/L (17-59); Carbon Dioxide 22 mmol/L (22-30); Chloride 94 mmol/L (98-107); Potassium 4.6 mmol/L (3.4-5.0); Sodium 132 mmol/L (137-145)
[2024-03-25 02:55] LABS: Anisocytosis 1+; Bilirubin,Total 0.9 mg/dL (0.2-1.3); Blood Urea Nitrogen 59 mg/dL (9-20); Calcium 8.5 mg/dL (8.4-10.2); Glucose 132 mg/dL (65-110); Magnesium 2.4 mg/dL (1.6-2.3); Phosphorus 7.4 mg/dL (2.5-4.5); Platelet Estimate Adequate (Adequate); Schistocytes None Seen
[2024-03-25 02:56] LABS: Hypochromasia 1+
[2024-03-25 03:01] LABS: Estimated CRCL calculation 8 ml/min; Estimated Glomerular Filt Rate 6
[2024-03-25 03:16] LABS: Vancomycin Trough 12.8 ug/mL (10.0-20.0)
[2024-03-25 03:53] LABS: Hepatitis B Surface Antigen Negative (Negative)
[2024-03-25 04:08] LABS: Hepatitis B Surface Anti Res Negative
[2024-03-25] MEDS: HEPARIN SOD/D5W 100 UNITS/ML 25,000 UNITS/250 ML BAG 17 UNITS IV CONT ×2 (05:29→21:21)
[2024-03-25 08:00] LABS: Glucose Point of Care 125 mg/dl (65-105)
[2024-03-25 08:41] LABS: Partial Thromboplastin Time 76.3 Seconds (22.3-36.8)
--- NOTE | 2024-03-25 09:32 | WPDINTPN ---
Progress Note: A&P Assessment and Plan (1) Septic shock: Code(s): A41.9 - Sepsis, unspecified organism; R65.21 - Severe sepsis with septic shock Status: Acute Assessment and Plan: Septic shock likely related to necrotic gallbladder -patient received 2 L IV fluid bolus in the ER, patient is a dialysis patient is a a be cautious with IV fluids -lactic acid is normal -continue to wean vasopressin and Levophed to maintain MAP > 65 mmHg for adequate end organ perfusion -03/23: Preliminary blood culture results are negative -03/23: Primary cultures -continue cefepime vancomycin and Flagyl (03/23) (2) Emphysematous cholecystitis: Code(s): K81.0 - Acute cholecystitis Status: Acute Assessment and Plan: Necrotic gallbladder on CT scan of the abdomen and pelvis on admission - status post cholecystectomy tube on 03/23/2024 -surgery following the patient -03/24: discussed with surgery, may start clear liquid diet 03/23/2024: CT scan of the abdomen and pelvis IMPRESSION: 1. Gangrenous/emphysematous cholecystitis with secondary portal venous gas. Dr. Wren discussed these findings with Dr. Antonio at 1:30 PM. 2. Small sliding-type hiatal hernia. 3. Prostatomegaly. 4. Status post right nephrectomy with moderate atrophy at the remaining left kidney. 5. Subtotal colectomy with Lozoya's pouch and right lower quadrant and ileostomy. (3) ESRD on dialysis: Code(s): N18.6 - End stage renal disease; Z99.2 - Dependence on renal dialysis Status: Acute Assessment and Plan: Nephrology has been consulted, patient does receive dialysis on Thursday, Thursday, Thursday -will leave it up to Nephrology for scheduling dialysis -electrolytes are stable at this time (4) Atrial fibrillation: Code(s): I48.91 - Unspecified atrial fibrillation Status: Acute Assessment and Plan: Patient has a history of atrial fibrillation status post ablation at the [place]. -currently rate controlled -03/24: patient was started on heparin infusion after discussing with surgery and Cardiology. -will start p.o. anticoagulation only after discussing with surgery (5) Anemia: Code(s): D64.9 - Anemia, unspecified Status: Chronic Assessment and Plan: Obtain iron panel, folic acid and B12 levels -could be related to anemia of chronic disease related to renal failure Plan DVT prophylaxis: Heparin infusion Stress ulcer prophylaxis: Not indicated Nutrition: Clear liquid diet per surgery Code Status: Full code Critical Care Time Spent: 32 minutes Dialysis today Due to a high probability of clinically significant, life threatening deterioration, the patient required my highest level of preparedness to intervene emergently and I personally spent this critical care time directly and personally managing the patient. This critical care time included obtaining a history; examining the patient; pulse oximetry; ordering and review of studies; arranging urgent treatment with development of a management plan; evaluation of patient's response to treatment; frequent reassessment; and discussions with other providers. It was exclusive of separately billable procedures and treating other patients and teaching time. Please see Assessment and Plan section and the rest of the note for further information on patient assessment and treatment This dictation may have been done utilizing a voice recognition system. Attempts have been made to correct errors. However, there may be uncorrected grammatical, spelling, and recognitions errors present. Subjective Date/time seen: 03/25/24 09:32 Interval history: Reason for consult: Septic shock, necrotic gallbladder, abdominal pain, hypovolemia, 03/23: Status post cholecystostomy tube placed by IR 03/25/2024: Patient seen and examined the ICU, is awake, alert, pleasant. States he feels much better. Remains on vasopressin at 0.02 units and Levophed at 2 mcg/min.
--- NOTE | 2024-03-25 09:53 | PM.PNCARD ---
Progress Note: A&P Assessment and Plan (1) Atrial fibrillation: Code(s): I48.91 - Unspecified atrial fibrillation Status: Acute Assessment and Plan: History of atrial fibrillation with prior Afib ablation at the [place]. He is rate controlled currently without any AV bobby blocking agents. He is not anticoagulated at this point. Per surgery, OK to anticoagulate with heparin for now, but eventually will need to be shifted to a DOAC when okay with surgery. At that point, he should be placed on apixaban 5mg b.i.d. (no dose adjustment for dialysis in his situation). Cardiology will sign off please call with any questions. He should follow up with his established support service tech at the [place]. (2) Septic shock: Code(s): A41.9 - Sepsis, unspecified organism; R65.21 - Severe sepsis with septic shock Status: Acute Assessment and Plan: Secondary to gangrenous gallbladder. On pressors. (3) Hypotension: Qualifiers: Hypotension type: other hypotension type Qualified Code(s): I95.89 - Other hypotension Code(s): I95.9 - Hypotension, unspecified Status: Acute Assessment and Plan: On dual vasopressors. Management per critical care. Subjective Date/time seen: 03/25/24 09:53 Interval history: Cardiology follow-up for atrial fibrillation Date of service 03/25/2024: Patient is feeling better today. His abdominal pain is improving. He remains in atrial fibrillation which is rate controlled. Denies any palpitations, shortness of breath, chest pain. Review of Systems Review of Systems: All systems reviewed & are unremarkable except as noted in HPI and below Constitutional: Constitutional: Denies chills, Denies fever(s), Denies headache(s) and Denies malaise Eyes: Eyes: Denies change in vision ENT: Reports Normal hearing present, Denies dizziness, Denies headache(s) and Denies hearing loss Cardiovascular: Cardiovascular: Denies chest pain, Denies chest pain at rest, Denies chest pain with activity, Denies syncope, Denies leg edema, Denies palpitations, Denies dyspnea and Denies dyspnea on exertion Respiratory: Respiratory: Denies cough, Denies dyspnea, Denies dyspnea on exertion and Denies wheezing Gastrointestinal: Gastrointestinal: Denies abdominal pain, Denies constipation and Denies diarrhea Genitourinary: Genitourinary: Denies hematuria and Denies dysuria Musculoskeletal: Musculoskeletal: Denies myalgias, Denies arthralgias and Denies muscle cramps Integumentary/Breasts: Skin/Breast: Denies wounds Neurologic: Reports Normal hearing present, Denies confusion, Denies dizziness, Denies syncope and Denies headache(s) Psychiatric: Psychiatric: Denies anxiety, Denies confusion and Denies depression Endocrine: Endocrine: Denies cold intolerance, Denies flushing, Denies heat intolerance and Denies palpitations Hematologic/Lymphatic: Hematologic/Lymphatic: Denies easy bleeding and Denies easy bruising Allergic/Immunologic: Allergic/Immunologic: Denies wheezing Exam Const: General: comfortable, no acute distress, alert and awake; No confusion Orientation/consciousness: patient oriented x3 and No confusion HENMT: Head: normal to inspection Eyes: General: appearance abnormal, both eyes Pupils: Equal, round and reactive pupils present Neck: Neck: normal visual inspection, supple and no JVD Carotids: normal carotid upstroke Resp: Effort & Inspection: normal respiratory effort Auscultation: not clear to auscultation bilaterally and rhonchi Cardio: Rate: regular rate Rhythm: abnormal rhythm irregularly irregular Heart sounds: S1 normal heart sound present, S2 normal heart sound present and no murmurs GI: Auscultation: normal bowel sounds Skin: General skin exam: normal color Neuro: General: patient oriented x3 and No confusion Cranial nerves: Yes Equal, round and reactive pupils present and Yes Normal hearing present Extrem: General: normal to inspection P
[2024-03-25 11:19] LABS: Iron 75 ug/dL (49-181)
[2024-03-25 11:37] LABS: Percent Iron Saturation 46 % (20-50)
[2024-03-25] MEDS: MEROPENEM 1 GM/NS 100 ML 1 GM/100 ML BAG IVPB (11:55)
--- NOTE | 2024-03-25 12:41 | P.PNNP_ITS ---
Progress Note: A&P Assessment and Plan (1) End stage renal disease: Code(s): N18.6 - End stage renal disease Status: Chronic Assessment and Plan: * plan HD Later today * continue outpatient dialysis schedule of Thu/Thu/Thursday * volume status looks okay. Blood pressure is low and is on pressors so will not take fluid off today. * Electrolytes okay (2) Septic shock: Code(s): A41.9 - Sepsis, unspecified organism; R65.21 - Severe sepsis with septic shock Status: Acute Assessment and Plan: * presumably secondary to #3 * s/p IVF resuscitation * on vasopressor support but less so. On Levophed but not vasopressin * follow blood/gallbladder drainage culture data * on cefepime and vancomycin. (3) Emphysematous cholecystitis: Code(s): K81.0 - Acute cholecystitis Status: Acute Assessment and Plan: * as noted by admission CT scan: * Gangrenous/emphysematous cholecystitis with secondary portal venous gas * s/p cholecystectomy tube placement on 03/23 by IR * General Surgery following * follow gallbladder drainage cultures * continue antibiotics * advance diet as tolerated (4) Anemia: Code(s): D64.9 - Anemia, unspecified Status: Chronic Assessment and Plan: * due to ESRD and likely worsened by acute illness * Epogen with HD * Hemoglobin about the same as yesterday at 8.9 (5) Atrial fibrillation: Code(s): I48.91 - Unspecified atrial fibrillation Status: Acute Assessment and Plan: * as noted by telemetry * distant history per patient * HR is good (6) Generalized weakness: Code(s): R53.1 - Weakness Status: Acute Assessment and Plan: * secondary to acute illness/sepsis and hemodynamic instability * hopefully should improve with ongoing therapy * continue supportive care Subjective Date/time seen: 03/25/24 12:41 Interval history: Patient is feeling a little better. Right upper quadrant drain in and draining. Belly hurts less Review of Systems Cardiovascular: Cardiovascular: Reports no additional cardiovascular complaints Respiratory: Respiratory: Reports no additional respiratory complaints Gastrointestinal: Gastrointestinal: Reports no additional gastrointestinal complaints Genitourinary: Genitourinary: Reports no additional male genitourinary complaints Exam Narrative: WDWN in NAD skin no rash head ncat lungs clear cor reg no rub abd BS+ mildly tender and soft. Drain present. ext no edema. Objective Data Vital Signs Vital Signs: Vital Signs - 24 hr 03/24/24 13:30 03/24/24 13:45 03/24/24 14:00 Temperature Pulse Rate 79 78 78 Respiratory Rate Blood Pressure 98/49 L 113/47 L 112/58 L Pulse Oximetry Oxygen Delivery Oxygen Flow Rate 03/24/24 13:00 03/24/24 14:00 03/24/24 15:00 Temperature Pulse Rate 83 78 79 Respiratory Rate 21 H 19 17 Blood Pressure 110/49 L 112/58 L 115/53 L Pulse Oximetry 94 95 93 Oxygen Delivery Oxygen Flow Rate 03/24/24 14:00 03/24/24 16:00 03/24/24 16:00 Temperature Pulse Rate 78 85 75 Respiratory Rate 17
--- NOTE | 2024-03-25 12:41 | PM.PNNEP ---
Progress Note: A&P Assessment and Plan (1) End stage renal disease: Code(s): N18.6 - End stage renal disease Status: Chronic Assessment and Plan: plan HD Later today continue outpatient dialysis schedule of Thu/Thu/Thursday volume status looks okay. Blood pressure is low and is on pressors so will not take fluid off today. Electrolytes okay (2) Septic shock: Code(s): A41.9 - Sepsis, unspecified organism; R65.21 - Severe sepsis with septic shock Status: Acute Assessment and Plan: presumably secondary to #3 s/p IVF resuscitation on vasopressor support but less so. On Levophed but not vasopressin follow blood/gallbladder drainage culture data on cefepime and vancomycin. (3) Emphysematous cholecystitis: Code(s): K81.0 - Acute cholecystitis Status: Acute Assessment and Plan: as noted by admission CT scan: Gangrenous/emphysematous cholecystitis with secondary portal venous gas s/p cholecystectomy tube placement on 03/23 by IR General Surgery following follow gallbladder drainage cultures continue antibiotics advance diet as tolerated (4) Anemia: Code(s): D64.9 - Anemia, unspecified Status: Chronic Assessment and Plan: due to ESRD and likely worsened by acute illness Epogen with HD Hemoglobin about the same as yesterday at 8.9 (5) Atrial fibrillation: Code(s): I48.91 - Unspecified atrial fibrillation Status: Acute Assessment and Plan: as noted by telemetry distant history per patient HR is good (6) Generalized weakness: Code(s): R53.1 - Weakness Status: Acute Assessment and Plan: secondary to acute illness/sepsis and hemodynamic instability hopefully should improve with ongoing therapy continue supportive care Subjective Date/time seen: 03/25/24 12:41 Interval history: Patient is feeling a little better. Right upper quadrant drain in and draining. Belly hurts less Review of Systems Cardiovascular: Cardiovascular: Reports no additional cardiovascular complaints Respiratory: Respiratory: Reports no additional respiratory complaints Gastrointestinal: Gastrointestinal: Reports no additional gastrointestinal complaints Genitourinary: Genitourinary: Reports no additional male genitourinary complaints Exam Narrative: WDWN in NAD skin no rash head ncat lungs clear cor reg no rub abd BS+ mildly tender and soft. Drain present. ext no edema. Objective Data Vital Signs Vital Signs: Vital Signs - 24 hr 03/24/24 13:30 03/24/24 13:45 03/24/24 14:00 Temperature Pulse Rate 79 78 78 Respiratory Rate Blood Pressure 98/49 L 113/47 L 112/58 L Pulse Oximetry Oxygen Delivery Oxygen Flow Rate 03/24/24 13:00 03/24/24 14:00 03/24/24 15:00 Temperature Pulse Rate 83 78 79 Respiratory Rate 21 H 19 17 Blood Pressure 110/49 L 112/58 L 115/53 L Pulse Oximetry 94 95 93 Oxygen Delivery Oxygen Flow Rate 03/24/24 14:00 03/24/24 16:00 03/24/24 16:00 Temperature Pulse Rate 78 85 75 Respiratory Rate 17 Blood Pressure Pulse Oximetry 95 Oxygen Delivery Nasal Cannula Oxygen Flow Rate 1 03/24/24 16:00 03/24/24 18:00 03/24/24 17:00 Temperature 98.2 F Pulse Rate 71 77 76 Respiratory Rate 17 15 21 H Blood Pressure 138/69 118/53 L 113/57 L Pulse Oximetry 96 95 94 Oxygen Delivery Oxygen Flow Rate 03/24/24 14:00 03/24/24 16:00 03/24/24 18:00 Temperature Pulse Rate 78 77 77 Respiratory Rate Blood Pressure 112/58 L 94/49 L 118/53 L Pulse Oximetry Oxygen Delivery Oxygen Flow Rate 03/24/24 16:00 03/24/24 18:00 03/24/24 20:00 Temperature 97.2 F L Pulse Rate 77 77 81 Respiratory Rate 25 H Blood Pressure 94/49 L 118/53 L 119/55 L Pulse Oximetry 92 Oxygen Delivery Oxygen Flow Rate 03/24/24 20:00 03/24/24 20:00 03/24/24 22:00 Temperature
[2024-03-25 14:25] LABS: Folic Acid 17.8 ng/mL (2.76->20)
--- NOTE | 2024-03-25 15:26 | WPDPN ---
Progress Note: A&P Assessment and Plan (1) Sepsis: Qualifiers: Sepsis acute organ dysfunction status: unspecified Sepsis type: sepsis due to unspecified organism Qualified Code(s): A41.9 - Sepsis, unspecified organism Code(s): A41.9 - Sepsis, unspecified organism Status: Acute Assessment and Plan: Sepsis due to illness cholecystitis. He has been treated with decompression of the gallbladder with a IR placed cholecystostomy tube. Since that has been done he has markedly improved and remains on the IV antibiotics. His sepsis is improved and he is weaning off of pressors but remains in the ICU. He has been tolerating clear liquids and so will go ahead and advance him to full liquids later today and then hopefully low-fat diet tomorrow. White blood cell count has normalized and he only has some mild tenderness to palpation right upper quadrant. Continue IV antibiotics and supportive management. (2) Emphysematous cholecystitis: Code(s): K81.0 - Acute cholecystitis Status: Acute Assessment and Plan: Gallbladder has been drained percutaneously. That has improved his clinical condition to the point that I do not think he needs emergent surgery for a cholecystectomy. I think if he continues non operative management is successful then he can have a interval laparoscopic cholecystectomy in several weeks. The patient does wish to be transferred to the [facility] when he is clinically stable and can be transferred. I think that over the weekend if he can get off of pressors to be transferred out of the ICU then it would be reasonable to contact the general medicine service or the surgical services at the [facility] to see if they can take the patient in transfer since the patient wishes to go to that facility for further care as office records in care in the past have been done at the [facility]. Subjective Date/time seen: 03/25/24 15:26 Interval history: Patient doing much better. Tolerating his clear liquids. Once something the eat. Right upper quadrant pain much better today than yesterday even but he still having some pain. He is getting ready to start his hemodialysis. White blood count is normal now at 7900. No fever. He has almost been weaned off of all pressors. He does remain in the ICU however Exam GI: Other: Abdomen is obese but soft. Has some mild tenderness to palpation in the right upper quadrant. No generalized peritoneal signs. Cholecystostomy tube drain in place. Output is typical dark bilious fluid without any blood or purulence. Objective Data Vital Signs Vital Signs: Vital Signs - 24 hr 03/24/24 16:00 03/24/24 16:00 03/24/24 16:00 Temperature 36.8 C Pulse Rate 85 75 71 Respiratory Rate 17 17 Blood Pressure 138/69 Pulse Oximetry 95 96 Oxygen Delivery Nasal Cannula Oxygen Flow Rate 1 03/24/24 18:00 03/24/24 17:00 03/24/24 16:00 Temperature Pulse Rate 77 76 77 Respiratory Rate 15 21 H Blood Pressure 118/53 L 113/57 L 94/49 L Pulse Oximetry 95 94 Oxygen Delivery Oxygen Flow Rate 03/24/24 18:00 03/24/24 16:00 03/24/24 18:00 Temperature Pulse Rate 77 77 77 Respiratory Rate Blood Pressure 118/53 L 94/49 L 118/53 L Pulse Oximetry Oxygen Delivery Oxygen Flow Rate 03/24/24 20:00 03/24/24 20:00 03/24/24 20:00 Temperature 36.2 C L Pulse Rate 81 81 81 Respiratory Rate 25 H Blood Pressure 119/55 L Pulse Oximetry 92 Oxygen Delivery Oxygen Flow Rate 03/24/24 22:00 03/24/24 20:00 03/25/24 00:00 Temperature Pulse Rate 73 81 74 Respiratory Rate 17 19 Blood Pressure 124/57 L 122/62 Pulse Oximetry 95 93 Oxygen Delivery Oxygen Flow Rate 03/24/24 22:00 03/25/24 00:00 03/25/24 02:00 Temperature Pulse Rate 75 74 71 Respiratory Rate Blood Pressure Pulse Oximetry Oxygen Delivery Oxygen Flow Rate 03/25/24 02:00
[2024-03-25 15:31] LABS: Partial Thromboplastin Time 72.7 Seconds (22.3-36.8)
[2024-03-25] MEDS: EPOETIN ALFA-EPBX 10,000 UNITS/ML VIAL 10000 UNITS IV PUSH (17:43)
[2024-03-25] MEDS: VANCOMYCIN 1,000 MG/NS 250 ML 1,000 MG/250 ML BAG 250 MG IVPB (21:20)
[2024-03-26] VITALS (24 sets, daily range): BP systolic 75–140; BP diastolic 32–117; PULSE 63–86; RESP 15–21; TEMP 36.6–37.3; O2SAT 93–97
[2024-03-26] MEDS: NOREPINEPHRINE 8 MG/D5W 250 ML 8 MG/250 ML BAG 7.5 MG IV CONT (02:31)
[2024-03-26 05:05] LABS: Basophils Percent Auto 0.4 % (0.2-1.2); Eosinophils Absolute Auto 0.2 K/mm3 (0-0.3); Eosinophils Percent Auto 3.1 % (0-4.4); Hematocrit 25.9 % (42.0-52.0); Hemoglobin 8.8 g/dL (14.0-18.0); Immature Granulocyte Absolute 0.36 K/mm3 (0.00-0.031); Immature Granulocyte Percent A 5.3 % (0-0.5); Lymphocytes Absolute Auto 0.33 K/mm3 (0.9-3.2); Lymphocytes Percent Auto 4.9 % (18.3-44.2); Mean Corpuscular Hemoglobin 33.6 pg (26-34); Mean Corpuscular Volume 98.9 fl (80-100); Mean Platelet Volume 9.8 fl (7.4-10.4); Monocytes Absolute Auto 0.9 K/mm3 (0.1-0.6); Monocytes Percent Auto 12.8 % (2.6-8.5); Neutrophils Absolute Auto 4.9 K/mm3 (1.3-6.7); Neutrophils Percent Auto 73.5 % (45.5-73.1); Platelet Count Result 150 k/mm3 (150-375); Red Blood Count 2.62 M/mm3 (4.6-6.20); Red Cell Distribution Width 13.9 % (11.5-14.5); White Blood Count 6.7 K/mm3 (4.5-10.0)
[2024-03-26 05:17] LABS: Partial Thromboplastin Time 70.2 Seconds (22.3-36.8)
[2024-03-26 05:27] LABS: Anisocytosis 1+; Hypochromasia 1+; Platelet Estimate Adequate (Adequate); Schistocytes None Seen
[2024-03-26 05:39] LABS: Alanine Aminotransferase 63 U/L (6-50); Albumin Level 3.4 g/dL (3.5-5.1); Alkaline Phosphatase 72 U/L (38-126); Anion Gap 8 mmol/L (4-12); Aspartate Amino Transferase 68 U/L (17-59); Bilirubin,Total 0.7 mg/dL (0.2-1.3); Blood Urea Nitrogen 37 mg/dL (9-20); Calcium 8.7 mg/dL (8.4-10.2); Carbon Dioxide 28 mmol/L (22-30); Chloride 97 mmol/L (98-107); Estimated CRCL calculation 12 ml/min; Estimated Glomerular Filt Rate 11; Glucose 100 mg/dL (65-110); Magnesium 2.2 mg/dL (1.6-2.3); Phosphorus 4.4 mg/dL (2.5-4.5); Sodium 133 mmol/L (137-145)
[2024-03-26] MEDS: MIDODRINE HCL 10 MG TABLET PO ×3 (09:07→17:17)
[2024-03-26] MEDS: PIPERACILLIN/TAZ 2.25G/NS 50ML 2.25 GM/50 ML BAG IVPB ×2 (09:07→22:02)
--- NOTE | 2024-03-26 09:55 | WPDINTPN ---
Progress Note: A&P Assessment and Plan (1) Septic shock: Code(s): A41.9 - Sepsis, unspecified organism; R65.21 - Severe sepsis with septic shock Status: Acute Assessment and Plan: Septic shock likely related to necrotic gallbladder -patient received 2 L IV fluid bolus in the ER, patient is a dialysis patient is a a be cautious with IV fluids -lactic acid is normal -off vasopressin -continue to wean Levophed to maintain MAP > 65 mmHg for adequate end organ perfusion -03/23: Preliminary blood culture results are negative -03/23: Gallbladder cultures growing lactobacillus species, -negative MRSA screen -03/26: Discontinue Meropenem and vancomycin -03/26: Started Zosyn (2) Emphysematous cholecystitis: Code(s): K81.0 - Acute cholecystitis Status: Acute Assessment and Plan: Necrotic gallbladder on CT scan of the abdomen and pelvis on admission - status post cholecystectomy tube on 03/23/2024 -surgery following the patient -03/24: discussed with surgery, may start clear liquid diet -will check with surgery regarding increasing diet -continue antibiotics as 03/23/2024: CT scan of the abdomen and pelvis IMPRESSION: 1. Gangrenous/emphysematous cholecystitis with secondary portal venous gas. Dr. Wren discussed these findings with Dr. Antonio at 1:30 PM. 2. Small sliding-type hiatal hernia. 3. Prostatomegaly. 4. Status post right nephrectomy with moderate atrophy at the remaining left kidney. 5. Subtotal colectomy with Lozoya's pouch and right lower quadrant and ileostomy. (3) ESRD on dialysis: Code(s): N18.6 - End stage renal disease; Z99.2 - Dependence on renal dialysis Status: Acute Assessment and Plan: Nephrology has been consulted, patient does receive dialysis on Thursday, Thursday, Thursday -will leave it up to Nephrology for scheduling dialysis -electrolytes are stable at this time -patient was dialyzed yesterday on 03/25 (4) Atrial fibrillation: Code(s): I48.91 - Unspecified atrial fibrillation Status: Acute Assessment and Plan: Patient has a history of atrial fibrillation status post ablation at the [place]. -03/24: patient was started on heparin infusion after discussing with surgery and Cardiology. -will start p.o. anticoagulation only after discussing with surgery -remains in AFib, rate controlled, continue heparin infusion (5) Anemia: Code(s): D64.9 - Anemia, unspecified Status: Chronic Assessment and Plan: -could be related to anemia of chronic disease related to renal failure -iron panel shows normal iron levels -vitamin B12 and folic acid are normal Plan DVT prophylaxis: Heparin infusion Stress ulcer prophylaxis: Not indicated Nutrition: Clear liquid diet per surgery Code Status: Full code Critical Care Time Spent: 32 minutes Discussed with patient updated him with his condition and plan of care, answered all his questions Due to a high probability of clinically significant, life threatening deterioration, the patient required my highest level of preparedness to intervene emergently and I personally spent this critical care time directly and personally managing the patient. This critical care time included obtaining a history; examining the patient; pulse oximetry; ordering and review of studies; arranging urgent treatment with development of a management plan; evaluation of patient's response to treatment; frequent reassessment; and discussions with other providers. It was exclusive of separately billable procedures and treating other patients and teaching time. Please see Assessment and Plan section and the rest of the note for further information on patient assessment and treatment This dictation may have been done utilizing a voice recognition system. Attempts have been made to correct errors. However, there may be uncorrected grammatical, spelling, and recognitions errors present. Subjective Date/time seen:
[2024-03-26 11:43] LABS: Partial Thromboplastin Time 78.7 Seconds (22.3-36.8)
--- NOTE | 2024-03-26 12:41 | P.PNNP_ITS ---
Progress Note: A&P Assessment and Plan (1) End stage renal disease: Code(s): N18.6 - End stage renal disease Status: Chronic Assessment and Plan: * He had dialysis yesterday and did well. * continue outpatient dialysis schedule of Thu/Thu/Thursday * volume status looks okay. * Still on norepinephrine 4mcg per minute. (2) Septic shock: Code(s): A41.9 - Sepsis, unspecified organism; R65.21 - Severe sepsis with septic shock Status: Acute Assessment and Plan: * presumably secondary to #3 * s/p IVF resuscitation * on vasopressor support but less so. On Levophed but not vasopressin * follow blood/gallbladder drainage culture data * on cefepime and vancomycin. * Afebrile and white cell count is okay. (3) Emphysematous cholecystitis: Code(s): K81.0 - Acute cholecystitis Status: Acute Assessment and Plan: * as noted by admission CT scan: * Gangrenous/emphysematous cholecystitis with secondary portal venous gas * s/p cholecystectomy tube placement on 03/23 by IR * General Surgery following * follow gallbladder drainage cultures * continue antibiotics * advance diet as tolerated . He was placed on a renal diet today by surgery (4) Anemia: Code(s): D64.9 - Anemia, unspecified Status: Chronic Assessment and Plan: * due to ESRD and likely worsened by acute illness * Epogen with HD * Hemoglobin about the same as yesterday at 8.8 (5) Atrial fibrillation: Code(s): I48.91 - Unspecified atrial fibrillation Status: Acute Assessment and Plan: * as noted by telemetry * distant history per patient * HR is good (6) Generalized weakness: Code(s): R53.1 - Weakness Status: Acute Assessment and Plan: * secondary to acute illness/sepsis and hemodynamic instability * hopefully should improve with ongoing therapy * continue supportive care Subjective Date/time seen: 03/26/24 12:41 Interval history: Friend is in the room. patient feels a little better today. Exam Narrative: WDWN in NAD skin no rash head ncat lungs clear cor reg no rub abd BS+ mildly tender and soft. Drain present. ext no edema. Objective Data Vital Signs Vital Signs: Vital Signs - 24 hr 03/25/24 14:00 03/25/24 14:00 03/25/24 14:00 Temperature Pulse Rate 72 72 72 Respiratory Rate 22 H Blood Pressure 109/52 L 109/52 L Pulse Oximetry 92 Oxygen Delivery 03/25/24 14:00 03/25/24 15:30 03/25/24 13:00 Temperature Pulse Rate 72 72 74 Respiratory Rate 17 Blood Pressure 109/52 L 91/55 L 101/52 L Pulse Oximetry 93 Oxygen Delivery 03/25/24 15:00 03/25/24 15:45 03/25/24 16:00 Temperature Pulse Rate 72 71 72 Respiratory Rate 21 H Blood Pressure 93/59 L 105/56 L Pulse Oximetry 95 Oxygen Delivery 03/25/24 16:00 03/25/24 16:00 03/25/24 16:00 Temperature 98.3 F 98.4 F Pulse Rate 76 72 69 Respiratory Rate 17 18 21 H Blood Pressure 106/57 L 106/57 L Pulse Oximetry 93 93 94 Oxygen Delivery Room Air 03/25/24 15:30 03/25/24 16:00 03/25/24
--- NOTE | 2024-03-26 12:41 | PM.PNNEP ---
Progress Note: A&P Assessment and Plan (1) End stage renal disease: Code(s): N18.6 - End stage renal disease Status: Chronic Assessment and Plan: He had dialysis yesterday and did well. continue outpatient dialysis schedule of Thu/Thu/Thursday volume status looks okay. Still on norepinephrine 4mcg per minute. (2) Septic shock: Code(s): A41.9 - Sepsis, unspecified organism; R65.21 - Severe sepsis with septic shock Status: Acute Assessment and Plan: presumably secondary to #3 s/p IVF resuscitation on vasopressor support but less so. On Levophed but not vasopressin follow blood/gallbladder drainage culture data on cefepime and vancomycin. Afebrile and white cell count is okay. (3) Emphysematous cholecystitis: Code(s): K81.0 - Acute cholecystitis Status: Acute Assessment and Plan: as noted by admission CT scan: Gangrenous/emphysematous cholecystitis with secondary portal venous gas s/p cholecystectomy tube placement on 03/23 by IR General Surgery following follow gallbladder drainage cultures continue antibiotics advance diet as tolerated . He was placed on a renal diet today by surgery (4) Anemia: Code(s): D64.9 - Anemia, unspecified Status: Chronic Assessment and Plan: due to ESRD and likely worsened by acute illness Epogen with HD Hemoglobin about the same as yesterday at 8.8 (5) Atrial fibrillation: Code(s): I48.91 - Unspecified atrial fibrillation Status: Acute Assessment and Plan: as noted by telemetry distant history per patient HR is good (6) Generalized weakness: Code(s): R53.1 - Weakness Status: Acute Assessment and Plan: secondary to acute illness/sepsis and hemodynamic instability hopefully should improve with ongoing therapy continue supportive care Subjective Date/time seen: 03/26/24 12:41 Interval history: Friend is in the room. patient feels a little better today. Exam Narrative: WDWN in NAD skin no rash head ncat lungs clear cor reg no rub abd BS+ mildly tender and soft. Drain present. ext no edema. Objective Data Vital Signs Vital Signs: Vital Signs - 24 hr 03/25/24 14:00 03/25/24 14:00 03/25/24 14:00 Temperature Pulse Rate 72 72 72 Respiratory Rate 22 H Blood Pressure 109/52 L 109/52 L Pulse Oximetry 92 Oxygen Delivery 03/25/24 14:00 03/25/24 15:30 03/25/24 13:00 Temperature Pulse Rate 72 72 74 Respiratory Rate 17 Blood Pressure 109/52 L 91/55 L 101/52 L Pulse Oximetry 93 Oxygen Delivery 03/25/24 15:00 03/25/24 15:45 03/25/24 16:00 Temperature Pulse Rate 72 71 72 Respiratory Rate 21 H Blood Pressure 93/59 L 105/56 L Pulse Oximetry 95 Oxygen Delivery 03/25/24 16:00 03/25/24 16:00 03/25/24 16:00 Temperature 98.3 F 98.4 F Pulse Rate 76 72 69 Respiratory Rate 17 18 21 H Blood Pressure 106/57 L 106/57 L Pulse Oximetry 93 93 94 Oxygen Delivery Room Air 03/25/24 15:30 03/25/24 16:00 03/25/24 16:00 Temperature 98.3 F Pulse Rate 67 72 72 Respiratory Rate 21 H Blood Pressure 91/55 L 106/57 L 106/57 L Pulse Oximetry 96 Oxygen Delivery 03/25/24 17:00 03/25/24 16:09 03/25/24 16:15 Temperature Pulse Rate 82 69 75 Respiratory Rate 17 Blood Pressure 114/50 L 113/57 L 108/58 L Pulse Oximetry 93 Oxygen Delivery 03/25/24 16:30 03/25/24 16:45 03/25/24 17:00 Temperature Pulse Rate 76 87 85 Respiratory Rate Blood Pressure 120/64 108/62 114/50 L Pulse Oximetry Oxygen Delivery 03/25/24 17:15 03/25/24 17:30 03/25/24 17:45 Temperature Pulse Rate 78 80 86 Respiratory Rate Blood Pressure 97/50 L 105/53 L 103/62 Pulse Oximetry Oxygen Delivery 03/25/24 18:00 03/25/24 18:15 03/25/24 18:00 Temperature Pulse Rate 89 81 84 Respiratory Rate 18 Blood Pressure 111/57 L 109/56 L 111/
--- NOTE | 2024-03-26 13:52 | PM.PNGS ---
Progress Note: A&P Assessment and Plan (1) Sepsis: Qualifiers: Sepsis acute organ dysfunction status: unspecified Sepsis type: sepsis due to unspecified organism Qualified Code(s): A41.9 - Sepsis, unspecified organism Code(s): A41.9 - Sepsis, unspecified organism Status: Acute Assessment and Plan: Off pressors, WBC normalized. Continue IV antibiotics (2) Emphysematous cholecystitis: Code(s): K81.0 - Acute cholecystitis Status: Acute Assessment and Plan: s/p percutaneous cholecystostomy tube placement Advance diet as tolerated Subjective Subjective Date/Time Seen: 03/26/24 13:52 Interval history: Tolerating clears. Pain improved. No acute events overnight. Exam GI: Inspection: non-distended and other (cholecystostomy tube with clear bilious output) GI Palp: Yes Soft to palpation, No Tenderness to palpation present (GI) and No Guarding due to palpation present (GI) Auscultation: normal bowel sounds Objective Data Vital Signs Vital Signs: Vital Signs - 24 hr 03/25/24 14:00 03/25/24 14:00 03/25/24 14:00 Temperature Pulse Rate 72 72 72 Respiratory Rate 22 H Blood Pressure 109/52 L 109/52 L Pulse Oximetry 92 Oxygen Delivery 03/25/24 14:00 03/25/24 15:30 03/25/24 15:00 Temperature Pulse Rate 72 72 72 Respiratory Rate 21 H Blood Pressure 109/52 L 91/55 L 93/59 L Pulse Oximetry 95 Oxygen Delivery 03/25/24 15:45 03/25/24 16:00 03/25/24 16:00 Temperature 36.8 C Pulse Rate 71 72 76 Respiratory Rate 17 Blood Pressure 105/56 L 106/57 L Pulse Oximetry 93 Oxygen Delivery 03/25/24 16:00 03/25/24 16:00 03/25/24 15:30 Temperature 36.9 C 36.8 C Pulse Rate 72 69 67 Respiratory Rate 18 21 H 21 H Blood Pressure 106/57 L 91/55 L Pulse Oximetry 93 94 96 Oxygen Delivery Room Air 03/25/24 16:00 03/25/24 16:00 03/25/24 17:00 Temperature Pulse Rate 72 72 82 Respiratory Rate 17 Blood Pressure 106/57 L 106/57 L 114/50 L Pulse Oximetry 93 Oxygen Delivery 03/25/24 16:09 03/25/24 16:15 03/25/24 16:30 Temperature Pulse Rate 69 75 76 Respiratory Rate Blood Pressure 113/57 L 108/58 L 120/64 Pulse Oximetry Oxygen Delivery 03/25/24 16:45 03/25/24 17:00 03/25/24 17:15 Temperature Pulse Rate 87 85 78 Respiratory Rate Blood Pressure 108/62 114/50 L 97/50 L Pulse Oximetry Oxygen Delivery 03/25/24 17:30 03/25/24 17:45 03/25/24 18:00 Temperature Pulse Rate 80 86 89 Respiratory Rate Blood Pressure 105/53 L 103/62 111/57 L Pulse Oximetry Oxygen Delivery 03/25/24 18:15 03/25/24 18:00 03/25/24 18:00 Temperature Pulse Rate 81 84 79 Respiratory Rate 18 Blood Pressure 109/56 L 111/57 L Pulse Oximetry 93 Oxygen Delivery 03/25/24 18:00 03/25/24 18:00 03/25/24 18:30 Temperature Pulse Rate 81 84 78 Respiratory Rate Blood Pressure 109/57 L 111/57 L 95/57 L Pulse Oximetry Oxygen Delivery 03/25/24 18:45 03/25/24 19:00 03/25/24 19:15 Temperature Pulse Rate 80 79 81 Respiratory Rate Blood Pressure 95/65 L 106/57 L 110/58 L Pulse Oximetry Oxygen Delivery 03/25/24 19:30 03/25/24 19:45 03/25/24 19:47 Temperature Pulse Rate 83 78 78 Respiratory Rate Blood Pressure 117/51 L 120/56 L 117/61 Pulse Oximetry Oxygen Delivery 03/25/24 20:10 03/25/24 20:00 03/25/24 20:00 Temperature 36.8 C 36.8 C Pulse Rate 78 78 78 Respiratory Rate 21 H 21 H Blood Pressure 115/53 L 115/79 115/79 Pulse Oximetry 94 94 Oxygen Delivery 03/25/24 22:30 03/25/24 22:45 03/26/24 00:26 Temperature Pulse Rate 79 82 77 Respiratory Rate Blood Pressure 114/69 138/69 122/47 L Pulse Oximetry Oxygen Delivery 03/25/24 22:00 03/26/24 00:00 03/25/24 20:00 Temperature 36.8 C Pulse Rate 82 82 86 Respiratory Rate 19 16 Blood Pressure 129/64 Pulse Oximetry 93 93 Oxygen Delivery 03/25/
[2024-03-26] MEDS: ALBUMIN HUMAN 25% 25 GM/100 ML 100 ML IVPB ×2 (14:27→17:17)
[2024-03-26] MEDS: HEPARIN SOD/D5W 100 UNITS/ML 25,000 UNITS/250 ML BAG 17 UNITS IV CONT (14:27)
[2024-03-26] MEDS: APIXABAN 5 MG TABLET PO (20:03)
[2024-03-27] VITALS (20 sets, daily range): BP systolic 91–129; BP diastolic 41–70; PULSE 53–72; RESP 13–21; TEMP 33.7–36.9; O2SAT 96–100
[2024-03-27] MEDS: ALBUMIN HUMAN 25% 25 GM/100 ML 100 ML IVPB ×2 (00:41→06:03)
[2024-03-27 05:27] LABS: Basophils Absolute Auto 0.1 K/mm3 (0.0-0.1); Basophils Percent Auto 1.3 % (0.2-1.2); Eosinophils Absolute Auto 0.4 K/mm3 (0-0.3); Hemoglobin 8.6 g/dL (14.0-18.0); Immature Granulocyte Percent A 9.8 % (0-0.5); Lymphocytes Absolute Auto 0.49 K/mm3 (0.9-3.2); Mean Corpuscular HGB Conc 33.1 g/dl (32-36); Mean Corpuscular Volume 99.6 fl (80-100); Mean Platelet Volume 9.9 fl (7.4-10.4); Monocytes Absolute Auto 0.8 K/mm3 (0.1-0.6); Monocytes Percent Auto 12.9 % (2.6-8.5); Neutrophils Absolute Auto 3.7 K/mm3 (1.3-6.7); Nucleated Red Blood Cells Perc 0.7 % (0.0-0.2); Platelet Count Result 144 k/mm3 (150-375); Red Blood Count 2.61 M/mm3 (4.6-6.20); Red Cell Distribution Width 14.1 % (11.5-14.5); White Blood Count 6.1 K/mm3 (4.5-10.0)
[2024-03-27 05:57] LABS: Alanine Aminotransferase 60 U/L (6-50); Albumin Level 3.8 g/dL (3.5-5.1); Alkaline Phosphatase 93 U/L (38-126); Anion Gap 13 mmol/L (4-12); Aspartate Amino Transferase 54 U/L (17-59); Bilirubin,Total 0.8 mg/dL (0.2-1.3); Blood Urea Nitrogen 53 mg/dL (9-20); Calcium 8.6 mg/dL (8.4-10.2); Carbon Dioxide 24 mmol/L (22-30); Chloride 95 mmol/L (98-107); Glucose 90 mg/dL (65-110); Magnesium 2.3 mg/dL (1.6-2.3); Phosphorus 5.6 mg/dL (2.5-4.5); Potassium 4.2 mmol/L (3.4-5.0); Sodium 132 mmol/L (137-145)
[2024-03-27] MEDS: PIPERACILLIN/TAZ 2.25G/NS 50ML 2.25 GM/50 ML BAG IVPB ×3 (06:02→21:19)
[2024-03-27 06:29] LABS: Estimated CRCL calculation 11 ml/min; Estimated Glomerular Filt Rate 9
--- NOTE | 2024-03-27 07:48 | WPDINTPN ---
Progress Note: A&P Assessment and Plan (1) Septic shock: Code(s): A41.9 - Sepsis, unspecified organism; R65.21 - Severe sepsis with septic shock Status: Acute Assessment and Plan: Septic shock likely related to necrotic gallbladder -patient received 2 L IV fluid bolus in the ER, patient is a dialysis patient is a a be cautious with IV fluids -lactic acid is normal -off vasopressin -continue to wean Levophed to maintain MAP > 65 mmHg for adequate end organ perfusion -03/23: Preliminary blood culture results are negative -03/23: Gallbladder cultures growing lactobacillus species, -negative MRSA screen -03/26: Discontinue Meropenem and vancomycin -03/26: Started Zosyn (2) Emphysematous cholecystitis: Code(s): K81.0 - Acute cholecystitis Status: Acute Assessment and Plan: Necrotic gallbladder on CT scan of the abdomen and pelvis on admission - status post cholecystectomy tube on 03/23/2024 -surgery following the patient -03/24: discussed with surgery, may start clear liquid diet -continue antibiotics as above -03/26:surgery started patient on low-fat diet as tolerated 03/23/2024: CT scan of the abdomen and pelvis IMPRESSION: 1. Gangrenous/emphysematous cholecystitis with secondary portal venous gas. Dr. Wren discussed these findings with Dr. Antonio at 1:30 PM. 2. Small sliding-type hiatal hernia. 3. Prostatomegaly. 4. Status post right nephrectomy with moderate atrophy at the remaining left kidney. 5. Subtotal colectomy with Lozoya's pouch and right lower quadrant and ileostomy. (3) ESRD on dialysis: Code(s): N18.6 - End stage renal disease; Z99.2 - Dependence on renal dialysis Status: Acute Assessment and Plan: Nephrology has been consulted, patient does receive dialysis on Thursday, Thursday, Thursday -dialysis per Nephrology -electrolytes are stable at this time -patient was dialyzed yesterday on 03/25 (4) Atrial fibrillation: Code(s): I48.91 - Unspecified atrial fibrillation Status: Acute Assessment and Plan: Patient has a history of atrial fibrillation status post ablation at the [place]. -03/24: patient was started on heparin infusion after discussing with surgery and Cardiology. -remains in AFib, rate controlled -03/26: Heparin was switched to Eliquis b.i.d., surgeon was okay (5) Anemia: Code(s): D64.9 - Anemia, unspecified Status: Chronic Assessment and Plan: -could be related to anemia of chronic disease related to renal failure -iron panel shows normal iron levels -vitamin B12 and folic acid are normal Plan DVT prophylaxis: Eliquis Stress ulcer prophylaxis: Not indicated Nutrition: Low-fat diet as tolerated per surgery Code Status: Full code Critical Care Time Spent: 32 minutes Discussed with patient updated him with his condition and plan of care, answered all his questions Due to a high probability of clinically significant, life threatening deterioration, the patient required my highest level of preparedness to intervene emergently and I personally spent this critical care time directly and personally managing the patient. This critical care time included obtaining a history; examining the patient; pulse oximetry; ordering and review of studies; arranging urgent treatment with development of a management plan; evaluation of patient's response to treatment; frequent reassessment; and discussions with other providers. It was exclusive of separately billable procedures and treating other patients and teaching time. Please see Assessment and Plan section and the rest of the note for further information on patient assessment and treatment This dictation may have been done utilizing a voice recognition system. Attempts have been made to correct errors. However, there may be uncorrected grammatical, spelling, and recognitions errors present. Subjective Date/time seen: 03/27/24 07:48 Interval history: Reason
[2024-03-27] MEDS: MIDODRINE HCL 10 MG TABLET PO ×3 (08:17→18:40)
[2024-03-27] MEDS: APIXABAN 5 MG TABLET PO ×2 (08:17→21:19)
--- NOTE | 2024-03-27 09:19 | P.PNNP_ITS ---
Progress Note: A&P Assessment and Plan (1) End stage renal disease: Code(s): N18.6 - End stage renal disease Status: Chronic Assessment and Plan: * due for dialysis tomorrow. * Volume status is okay. Blood pressure would not tolerate fluid removal anyway. * Blood pressure doing well. Still on Levophed * electrolytes okay (2) Septic shock: Code(s): A41.9 - Sepsis, unspecified organism; R65.21 - Severe sepsis with septic shock Status: Acute Assessment and Plan: * presumably secondary to #3 * s/p IVF resuscitation * on Levophed 3 mics. * follow blood/gallbladder drainage culture data * on cefepime and vancomycin. * Afebrile and white cell count is okay. (3) Emphysematous cholecystitis: Code(s): K81.0 - Acute cholecystitis Status: Acute Assessment and Plan: * as noted by admission CT scan: * Gangrenous/emphysematous cholecystitis with secondary portal venous gas * s/p cholecystectomy tube placement on 03/23 by IR * General Surgery following * Tolerating the renal diet (4) Anemia: Code(s): D64.9 - Anemia, unspecified Status: Chronic Assessment and Plan: * due to ESRD and likely worsened by acute illness * Epogen with HD * Hemoglobin about the same as yesterday at 8.6 (5) Atrial fibrillation: Code(s): I48.91 - Unspecified atrial fibrillation Status: Acute Assessment and Plan: * as noted by telemetry * distant history per patient * HR is good ranging in the 60-90 range (6) Generalized weakness: Code(s): R53.1 - Weakness Status: Acute Assessment and Plan: * secondary to acute illness/sepsis and hemodynamic instability * he will probably need some rehab Subjective Date/time seen: 03/27/24 09:19 Interval history: patient is lying in semi-'s position. In good spirits. He just finished breakfast. Still on Levophed 3 mics. Exam Narrative: WDWN in NAD skin no rash Or subcu nodules head ncat lungs clear bilaterally cor reg no rub abd BS+ mildly tender and soft. Drain present. ext no edema. Objective Data Vital Signs Vital Signs: Vital Signs - 24 hr 03/26/24 10:00 03/26/24 10:00 03/26/24 10:00 Temperature Pulse Rate 74 74 74 Respiratory Rate 20 Blood Pressure 101/55 L 101/55 L Pulse Oximetry 96 Oxygen Delivery 03/26/24 11:30 03/26/24 11:45 03/26/24 12:00 Temperature Pulse Rate 71 67 77 Respiratory Rate Blood Pressure 82/33 L 102/57 L Pulse Oximetry Oxygen Delivery 03/26/24 12:00 03/26/24 12:00 03/26/24 13:31 Temperature 99.2 F Pulse Rate 72 72 68 Respiratory Rate 17 Blood Pressure 106/66 106/66 140/117 H Pulse Oximetry 96 Oxygen Delivery 03/26/24 14:00 03/26/24 15:00 03/26/24 14:00 Temperature Pulse Rate 70 66 70 Respiratory Rate 21 H Blood Pressure 100/62 112/50 L 100/62 Pulse Oximetry 96 Oxygen Delivery 03/26/24 14:00 03/26/24 16:00 03/26/24 17:30 Temperature Pulse Rate 74 66 70 Respiratory Rate
--- NOTE | 2024-03-27 09:19 | PM.PNNEP ---
Progress Note: A&P Assessment and Plan (1) End stage renal disease: Code(s): N18.6 - End stage renal disease Status: Chronic Assessment and Plan: due for dialysis tomorrow. Volume status is okay. Blood pressure would not tolerate fluid removal anyway. Blood pressure doing well. Still on Levophed electrolytes okay (2) Septic shock: Code(s): A41.9 - Sepsis, unspecified organism; R65.21 - Severe sepsis with septic shock Status: Acute Assessment and Plan: presumably secondary to #3 s/p IVF resuscitation on Levophed 3 mics. follow blood/gallbladder drainage culture data on cefepime and vancomycin. Afebrile and white cell count is okay. (3) Emphysematous cholecystitis: Code(s): K81.0 - Acute cholecystitis Status: Acute Assessment and Plan: as noted by admission CT scan: Gangrenous/emphysematous cholecystitis with secondary portal venous gas s/p cholecystectomy tube placement on 03/23 by IR General Surgery following Tolerating the renal diet (4) Anemia: Code(s): D64.9 - Anemia, unspecified Status: Chronic Assessment and Plan: due to ESRD and likely worsened by acute illness Epogen with HD Hemoglobin about the same as yesterday at 8.6 (5) Atrial fibrillation: Code(s): I48.91 - Unspecified atrial fibrillation Status: Acute Assessment and Plan: as noted by telemetry distant history per patient HR is good ranging in the 60-90 range (6) Generalized weakness: Code(s): R53.1 - Weakness Status: Acute Assessment and Plan: secondary to acute illness/sepsis and hemodynamic instability he will probably need some rehab Subjective Date/time seen: 03/27/24 09:19 Interval history: patient is lying in semi-'s position. In good spirits. He just finished breakfast. Still on Levophed 3 mics. Exam Narrative: WDWN in NAD skin no rash Or subcu nodules head ncat lungs clear bilaterally cor reg no rub abd BS+ mildly tender and soft. Drain present. ext no edema. Objective Data Vital Signs Vital Signs: Vital Signs - 24 hr 03/26/24 10:00 03/26/24 10:00 03/26/24 10:00 Temperature Pulse Rate 74 74 74 Respiratory Rate 20 Blood Pressure 101/55 L 101/55 L Pulse Oximetry 96 Oxygen Delivery 03/26/24 11:30 03/26/24 11:45 03/26/24 12:00 Temperature Pulse Rate 71 67 77 Respiratory Rate Blood Pressure 82/33 L 102/57 L Pulse Oximetry Oxygen Delivery 03/26/24 12:00 03/26/24 12:00 03/26/24 13:31 Temperature 99.2 F Pulse Rate 72 72 68 Respiratory Rate 17 Blood Pressure 106/66 106/66 140/117 H Pulse Oximetry 96 Oxygen Delivery 03/26/24 14:00 03/26/24 15:00 03/26/24 14:00 Temperature Pulse Rate 70 66 70 Respiratory Rate 21 H Blood Pressure 100/62 112/50 L 100/62 Pulse Oximetry 96 Oxygen Delivery 03/26/24 14:00 03/26/24 16:00 03/26/24 17:30 Temperature Pulse Rate 74 66 70 Respiratory Rate Blood Pressure 100/51 L 98/54 L Pulse Oximetry Oxygen Delivery 03/26/24 16:00 03/26/24 16:00 03/26/24 18:00 Temperature 98.2 F Pulse Rate 67 70 69 Respiratory Rate 20 Blood Pressure 100/51 L 110/53 L Pulse Oximetry 95 Oxygen Delivery 03/26/24 18:00 03/26/24 18:00 03/26/24 20:00 Temperature 97.9 F Pulse Rate 65 65 63 Respiratory Rate 18 20 Blood Pressure 110/53 L 92/58 L Pulse Oximetry 96 95 Oxygen Delivery 03/26/24 22:00 03/27/24 00:00 03/26/24 20:00 Temperature 98.1 F Pulse Rate 67 63 63 Respiratory Rate 17 14 Blood Pressure 99/42 L 92/58 L Pulse Oximetry 97 98 Oxygen Delivery 03/26/24 22:00 03/27/24 00:00 03/27/24 02:00 Temperature Pulse Rate 67 63 62 Respiratory Rate Blood Pressure Pulse Oximetry Oxygen Delivery 03/27/24 02:00 03/26/24 20:00 03/26/24 21:30 Temperature Pulse Rate 62 63 64 Re
--- NOTE | 2024-03-27 13:27 | PM.PNGS ---
Progress Note: A&P Assessment and Plan (1) Sepsis: Qualifiers: Sepsis acute organ dysfunction status: unspecified Sepsis type: sepsis due to unspecified organism Qualified Code(s): A41.9 - Sepsis, unspecified organism Code(s): A41.9 - Sepsis, unspecified organism Status: Acute Assessment and Plan: Off pressors, WBC normalized. Continue IV antibiotics (2) Emphysematous cholecystitis: Code(s): K81.0 - Acute cholecystitis Status: Acute Assessment and Plan: s/p percutaneous cholecystostomy tube placement Tolerating low fat diet Subjective Subjective Date/Time Seen: 03/27/24 13:27 Interval history: Tolerating low fat diet. No significant abdominal pain. No fevers. Exam GI: Inspection: non-distended and other (cholecystostomy tube with clear bilious output) GI Palp: Yes Soft to palpation, No Tenderness to palpation present (GI) and No Guarding due to palpation present (GI) Auscultation: normal bowel sounds Objective Data Vital Signs Vital Signs: Vital Signs - 24 hr 03/26/24 13:31 03/26/24 14:00 03/26/24 15:00 Temperature Pulse Rate 68 70 66 Respiratory Rate Blood Pressure 140/117 H 100/62 112/50 L Pulse Oximetry Oxygen Delivery 03/26/24 14:00 03/26/24 14:00 03/26/24 16:00 Temperature Pulse Rate 70 74 66 Respiratory Rate 21 H Blood Pressure 100/62 100/51 L Pulse Oximetry 96 Oxygen Delivery 03/26/24 17:30 03/26/24 16:00 03/26/24 16:00 Temperature 36.8 C Pulse Rate 70 67 70 Respiratory Rate 20 Blood Pressure 98/54 L 100/51 L Pulse Oximetry 95 Oxygen Delivery 03/26/24 18:00 03/26/24 18:00 03/26/24 18:00 Temperature Pulse Rate 69 65 65 Respiratory Rate 18 Blood Pressure 110/53 L 110/53 L Pulse Oximetry 96 Oxygen Delivery 03/26/24 20:00 03/26/24 22:00 03/27/24 00:00 Temperature 36.6 C 36.7 C Pulse Rate 63 67 63 Respiratory Rate 20 17 14 Blood Pressure 92/58 L 99/42 L 92/58 L Pulse Oximetry 95 97 98 Oxygen Delivery 03/26/24 20:00 03/26/24 22:00 03/27/24 00:00 Temperature Pulse Rate 63 67 63 Respiratory Rate Blood Pressure Pulse Oximetry Oxygen Delivery 03/27/24 02:00 03/27/24 02:00 03/26/24 20:00 Temperature Pulse Rate 62 62 63 Respiratory Rate 18 Blood Pressure 109/54 L 92/58 L Pulse Oximetry 96 Oxygen Delivery 03/26/24 21:30 03/26/24 22:00 03/27/24 00:00 Temperature Pulse Rate 64 67 63 Respiratory Rate Blood Pressure 78/46 L 99/42 L 97/41 L Pulse Oximetry Oxygen Delivery 03/27/24 02:10 03/27/24 00:00 03/27/24 04:00 Temperature Pulse Rate 63 58 L Respiratory Rate 19 Blood Pressure 109/54 L 111/55 L Pulse Oximetry 98 Oxygen Delivery Room Air 03/27/24 06:00 03/27/24 06:00 03/27/24 04:00 Temperature 33.7 C L Pulse Rate 63 63 61 Respiratory Rate 19 Blood Pressure 91/48 L Pulse Oximetry 98 Oxygen Delivery 03/27/24 07:00 03/27/24 08:00 03/27/24 08:00 Temperature 36.7 C Pulse Rate 57 L 72 Respiratory Rate 21 H Blood Pressure 95/45 L 93/45 L Pulse Oximetry 99 Oxygen Delivery Room Air 03/27/24 08:00 03/27/24 08:00 03/27/24 09:00 Temperature Pulse Rate 72 66 60 Respiratory Rate Blood Pressure 93/45 L 98/59 L Pulse Oximetry Oxygen Delivery 03/27/24 09:15 03/27/24 09:37 03/27/24 10:00 Temperature Pulse Rate 59 L 64 64 Respiratory Rate Blood Pressure 112/62 128/64 Pulse Oximetry Oxygen Delivery 03/27/24 10:00 03/27/24 10:30 03/27/24 11:00 Temperature Pulse Rate 64 Respiratory Rate 13 Blood Pressure 121/68 129/65 117/68 Pulse Oximetry 98 Oxygen Delivery 03/27/24 11:30 03/27/24 11:49 03/27/24 12:00 Temperature 36.9 C Pulse Rate 68 Respiratory Rate 19 Blood Pressure 128/61 112/60 Pulse Oximetry 100 Oxygen Delivery Room Air 03/27/24 12:00 Temperature Pulse Rate 64 Respiratory Rate Bl
--- NOTE | 2024-03-27 14:12 | PCPTNOTE ---
pt refused PT eval ~ 1330; stated he feels awful and weak, cannot do anything ; instructed pt to perform active ankle and leg exercises in supine to keep up strength; discussed with RN;
--- NOTE | 2024-03-27 15:30 | PCOTNOTE ---
Attempted to see pt. for occupational therapy evaluation. Pt. refused on this date. Nursing aware. Following.
[2024-03-28] VITALS (34 sets, daily range): BP systolic 88–136; BP diastolic 21–110; PULSE 56–76; RESP 16–20; TEMP 36.1–37.4; O2SAT 94–99
[2024-03-28] MEDS: PIPERACILLIN/TAZ 2.25G/NS 50ML 2.25 GM/50 ML BAG IVPB ×3 (05:05→20:51)
[2024-03-28 05:51] LABS: Vancomycin Random 14.5 ug/mL (10-20)
[2024-03-28 05:53] LABS: Albumin Level 3.7 g/dL (3.5-5.1); Anion Gap 16 mmol/L (4-12); Blood Urea Nitrogen 69 mg/dL (9-20); Calcium 8.6 mg/dL (8.4-10.2); Carbon Dioxide 20 mmol/L (22-30); Chloride 96 mmol/L (98-107); Estimated CRCL calculation 8 ml/min; Estimated Glomerular Filt Rate 7; Glucose 83 mg/dL (65-110); Phosphorus 7.3 mg/dL (2.5-4.5); Potassium 4.4 mmol/L (3.4-5.0); Sodium 132 mmol/L (137-145)
[2024-03-28 07:53] LABS: Glucose Point of Care 78 mg/dl (65-105)
[2024-03-28] MEDS: MIDODRINE HCL 10 MG TABLET PO ×3 (08:26→16:58)
[2024-03-28] MEDS: APIXABAN 5 MG TABLET PO ×2 (08:26→20:51)
--- NOTE | 2024-03-28 08:46 | ECG_ITS ---
Test Date: 2024-03-28 08:51:18 Measurements Intervals [place] Rate: 65 P: 0 NV: 0 QRS: -42 QRSD: 181 T: -5 QT: 447 QTc: 465 Interpretive Statements ATRIAL FIBRILLATION WITH ABERRANT CONDUCTION OR VENTRICULAR PREMATURE COMPLEXES MARKED LEFT AXIS DEVIATION [QRS AXIS < -30] RIGHT BUNDLE BRANCH BLOCK [120+ ms QRS DURATION, UPRIGHT V1, 40+ ms S IN I/aVL/V4/V5/V6] POSSIBLE LEFT VENTRICULAR HYPERTROPHY [VOLTAGE CRITERIA PLUS LAE OR QRS WIDENING] ABNORMAL ECG Compared to ECG 03/24/2024 09:45:19 HEART RATE RESPONSE IS REDUCED NO OTHER SIGNIFICANT CHANGE Electronically Signed On 03-28-2024 15:20:54 CDT by Emery Posey M.D.
[2024-03-28 08:55] LABS: Basophils Absolute Auto 0.1 K/mm3 (0.0-0.1); Basophils Percent Auto 1.1 % (0.2-1.2); Eosinophils Absolute Auto 0.3 K/mm3 (0-0.3); Eosinophils Percent Auto 4.3 % (0-4.4); Hematocrit 27.6 % (42.0-52.0); Hemoglobin 9.4 g/dL (14.0-18.0); Immature Granulocyte Absolute 1.03 K/mm3 (0.00-0.031); Immature Granulocyte Percent A 12.9 % (0-0.5); Lymphocytes Absolute Auto 0.58 K/mm3 (0.9-3.2); Lymphocytes Percent Auto 7.3 % (18.3-44.2); Mean Corpuscular HGB Conc 34.1 g/dl (32-36); Mean Corpuscular Hemoglobin 34.2 pg (26-34); Mean Corpuscular Volume 100.4 fl (80-100); Mean Platelet Volume 10.3 fl (7.4-10.4); Monocytes Absolute Auto 0.8 K/mm3 (0.1-0.6); Monocytes Percent Auto 9.9 % (2.6-8.5); Neutrophils Absolute Auto 5.2 K/mm3 (1.3-6.7); Neutrophils Percent Auto 64.5 % (45.5-73.1); Nucleated Red Blood Cells Perc 0.4 % (0.0-0.2); Platelet Count Result 175 k/mm3 (150-375); Red Blood Count 2.75 M/mm3 (4.6-6.20); Red Cell Distribution Width 14.2 % (11.5-14.5)
--- NOTE | 2024-03-28 09:06 | WPDINTPN ---
Progress Note: A&P Assessment and Plan (1) Septic shock: Code(s): A41.9 - Sepsis, unspecified organism; R65.21 - Severe sepsis with septic shock Status: Acute Assessment and Plan: Septic shock likely related to necrotic gallbladder -patient received 2 L IV fluid bolus in the ER, patient is a dialysis patient is a a be cautious with IV fluids -lactic acid is normal -off vasopressin -off Levophed since the morning of 03/27/2024 -03/23: Blood cultures are negative x2 -03/23: Gallbladder cultures growing lactobacillus species,, fungal cultures are negative -negative MRSA screen -03/26: Discontinue Meropenem and vancomycin -03/26: Started Zosyn (2) Emphysematous cholecystitis: Code(s): K81.0 - Acute cholecystitis Status: Acute Assessment and Plan: Necrotic gallbladder on CT scan of the abdomen and pelvis on admission - status post cholecystectomy tube on 03/23/2024 -surgery following the patient -03/24: discussed with surgery, may start clear liquid diet -continue antibiotics as above -03/26:surgery started patient on low-fat diet as tolerated 03/23/2024: CT scan of the abdomen and pelvis IMPRESSION: 1. Gangrenous/emphysematous cholecystitis with secondary portal venous gas. Dr. Wren discussed these findings with Dr. Antonio at 1:30 PM. 2. Small sliding-type hiatal hernia. 3. Prostatomegaly. 4. Status post right nephrectomy with moderate atrophy at the remaining left kidney. 5. Subtotal colectomy with Lozoya's pouch and right lower quadrant and ileostomy. (3) ESRD on dialysis: Code(s): N18.6 - End stage renal disease; Z99.2 - Dependence on renal dialysis Status: Acute Assessment and Plan: Nephrology has been consulted, patient does receive dialysis on Thursday, Thursday, Thursday -appreciate Nephrology following the patient -electrolytes are stable at this time -dialysis per Nephrology (4) Atrial fibrillation: Code(s): I48.91 - Unspecified atrial fibrillation Status: Acute Assessment and Plan: Patient has a history of atrial fibrillation status post ablation at the [facility]. -03/24: patient was started on heparin infusion after discussing with surgery and Cardiology. -remains in AFib, rate controlled -03/26: Heparin was switched to Eliquis b.i.d., surgeon was okay -remains in AFib with slight change in rhythm, will have Cardiology take a look at the EKG (5) Anemia: Code(s): D64.9 - Anemia, unspecified Status: Chronic Assessment and Plan: -could be related to anemia of chronic disease related to renal failure -iron panel shows normal iron levels -vitamin B12 and folic acid are normal Plan DVT prophylaxis: Eliquis Stress ulcer prophylaxis: Not indicated Nutrition: Low-fat diet as tolerated per surgery Code Status: Full code Critical Care Time Spent: 31 minutes Patient may transfer out of the ICU Discussed with patient updated him with his condition and plan of care, answered all his questions Due to a high probability of clinically significant, life threatening deterioration, the patient required my highest level of preparedness to intervene emergently and I personally spent this critical care time directly and personally managing the patient. This critical care time included obtaining a history; examining the patient; pulse oximetry; ordering and review of studies; arranging urgent treatment with development of a management plan; evaluation of patient's response to treatment; frequent reassessment; and discussions with other providers. It was exclusive of separately billable procedures and treating other patients and teaching time. Please see Assessment and Plan section and the rest of the note for further information on patient assessment and treatment This dictation may have been done utilizing a voice recognition system. Attempts have been made to correct errors. However, there may be uncorrected grammatical, spelling, an
[2024-03-28 09:26] LABS: Hypochromasia 1+; Macrocytosis 1+ (NORMAL); Platelet Estimate Adequate (Adequate); Schistocytes None Seen
[2024-03-28] MEDS: ALBUMIN HUMAN 25% 12.5 GM/50ML 50 ML IVPB ×2 (09:46→12:55)
[2024-03-28 11:56] LABS: Glucose Point of Care 100 mg/dl (65-105)
[2024-03-28] MEDS: EPOETIN ALFA-EPBX 10,000 UNITS/ML VIAL 10000 UNITS IV PUSH (13:40)
--- NOTE | 2024-03-28 13:53 | PM.PNGS ---
Progress Note: A&P Assessment and Plan (1) Sepsis: Qualifiers: Sepsis acute organ dysfunction status: unspecified Sepsis type: sepsis due to unspecified organism Qualified Code(s): A41.9 - Sepsis, unspecified organism Code(s): A41.9 - Sepsis, unspecified organism Status: Acute Assessment and Plan: Resolved. Off pressors, WBC normalized. Blood cx NGTD. Continue IV antibiotics. Plan to transfer out of ICU today. (2) Emphysematous cholecystitis: Code(s): K81.0 - Acute cholecystitis Status: Acute Assessment and Plan: Improving following percutaneous cholecystostomy tube placement. Tolerating low fat diet. Bile cultures growing lactobacillus species. Continue antibiotics. Okay to transfer patient to the [place] now that he is medically stable. Plan I have discussed the patient's case and plan of care with Dr. Napier. Subjective Subjective Date/Time Seen: 03/28/24 13:53 Patient reports: no new complaints, feels better, tolerating a regular diet and afebrile Interval history: Chart reviewed since last seen. The patient has been off of vasopressors since yesterday. Vital signs are stable today. He has been started on apixaban for his atrial fibrillation. Patient reports his abdominal pain has continued to improve through the weekend. He is tolerating a low-fat diet. No other complaints at this time. Exam Const: General: comfortable and no acute distress Orientation/consciousness: patient oriented x3 GI: Inspection: non-distended and other (cholecystostomy tube with bilious output) GI Palp: Yes Soft to palpation, Yes Tenderness to palpation present (GI) (mild right mid to upper abdominal tenderness), No Guarding due to palpation present (GI) and No Rebound tenderness present Auscultation: normal bowel sounds Objective Data Vital Signs Vital Signs: Vital Signs - 24 hr 03/27/24 14:00 03/27/24 14:00 03/27/24 16:00 Temperature Pulse Rate 63 63 62 Respiratory Rate 14 Blood Pressure 108/69 Pulse Oximetry 100 Oxygen Delivery Oxygen Flow Rate Fraction of Inspired Oxygen 03/27/24 16:00 03/27/24 16:00 03/27/24 18:00 Temperature 98 F Pulse Rate 59 L 61 Respiratory Rate 17 20 Blood Pressure 116/62 119/67 Pulse Oximetry 96 96 Oxygen Delivery Room Air Oxygen Flow Rate Fraction of Inspired Oxygen 03/27/24 18:00 03/27/24 20:00 03/27/24 22:00 Temperature 97.9 F Pulse Rate 61 53 L 58 L Respiratory Rate 19 15 Blood Pressure 109/53 L 121/70 Pulse Oximetry 99 96 Oxygen Delivery Oxygen Flow Rate Fraction of Inspired Oxygen 03/27/24 20:00 03/27/24 22:00 03/28/24 00:00 Temperature Pulse Rate 61 58 L 61 Respiratory Rate Blood Pressure Pulse Oximetry Oxygen Delivery Oxygen Flow Rate Fraction of Inspired Oxygen 03/28/24 00:00 03/28/24 02:00 03/28/24 02:00 Temperature 97.9 F Pulse Rate 61 58 L 58 L Respiratory Rate 16 17 Blood Pressure 107/53 L 97/62 L Pulse Oximetry 94 96 Oxygen Delivery Oxygen Flow Rate Fraction of Inspired Oxygen 03/28/24 04:00 03/28/24 04:00 03/28/24 06:00 Temperature 97.8 F 97.7 F Pulse Rate 62 60 58 L Respiratory Rate 18 19 Blood Pressure 128/73 114/69 Pulse Oximetry 98 96 Oxygen Delivery Oxygen Flow Rate Fraction of Inspired Oxygen 03/28/24 06:00 03/28/24 08:25 03/28/24 08:00 Temperature 97.5 F L Pulse Rate 58 L 73 Respiratory Rate 20 Blood Pressure 130/65 Pulse Oximetry 98 Oxygen Delivery Room Air Oxygen Flow Rate Fraction of Inspired Oxygen 03/28/24 08:42 03/28/24 08:00 03/28/24 08:00 Temperature Pulse Rate 73 Respiratory Rate Blood Pressure Pulse Oximetry 99 Oxygen Delivery Room Air Room Air Oxygen Flow Rate Fraction of Inspired Oxygen 21 03/28/24 10:00 03/28/24 10:00 03/28/24 12:00 Temperature 98.0 F Pulse Rate 62 62 73 Respiratory Rate 18 20 Blood Pressure 109/
--- NOTE | 2024-03-28 13:54 | P.PNNP_ITS ---
Progress Note: A&P Assessment and Plan (1) End stage renal disease: Code(s): N18.6 - End stage renal disease Status: Chronic Assessment and Plan: * due for dialysis today. He was seen at 8:00 a.m.. Dialysis will be later today * Volume status is okay. Blood pressure would not tolerate fluid removal anyway. * Blood pressure doing well. * Will not remove much fluid since he just got off the Levophed yesterday. * electrolytes okay (2) Septic shock: Code(s): A41.9 - Sepsis, unspecified organism; R65.21 - Severe sepsis with septic shock Status: Acute Assessment and Plan: * presumably secondary to #3 * s/p IVF resuscitation * Improved. Still on antibiotics. (3) Emphysematous cholecystitis: Code(s): K81.0 - Acute cholecystitis Status: Acute Assessment and Plan: * as noted by admission CT scan: * Gangrenous/emphysematous cholecystitis with secondary portal venous gas * s/p cholecystectomy tube placement on 03/23 by IR * General Surgery following * Tolerating the renal diet (4) Anemia: Code(s): D64.9 - Anemia, unspecified Status: Chronic Assessment and Plan: * due to ESRD and likely worsened by acute illness * Epogen with HD Today * Hemoglobin 9.4 (5) Atrial fibrillation: Code(s): I48.91 - Unspecified atrial fibrillation Status: Acute Assessment and Plan: * as noted by telemetry * distant history per patient * HR is good ranging in the 60-90 range (6) Generalized weakness: Code(s): R53.1 - Weakness Status: Acute Assessment and Plan: * secondary to acute illness/sepsis and hemodynamic instability * he will probably need some rehab Subjective Date/time seen: 03/28/24 13:54 Interval history: Patient is feeling better. He is eating breakfast. He is off his Levophed drip. He is moving out of the ICU. Exam Narrative: WDWN in NAD skin no rash Or subcu nodules head ncat lungs clear to auscultation cor reg no rub abd BS+ mildly tender and soft. Drain present. ext no edema or cyanosis. Objective Data Vital Signs Vital Signs: Vital Signs - 24 hr 03/27/24 14:00 03/27/24 14:00 03/27/24 16:00 Temperature Pulse Rate 63 63 62 Respiratory Rate 14 Blood Pressure 108/69 Pulse Oximetry 100 Oxygen Delivery Oxygen Flow Rate Fraction of Inspired Oxygen 03/27/24 16:00 03/27/24 16:00 03/27/24 18:00 Temperature 98 F Pulse Rate 59 L 61 Respiratory Rate 17 20 Blood Pressure 116/62 119/67 Pulse Oximetry 96 96 Oxygen Delivery Room Air Oxygen Flow Rate Fraction of Inspired Oxygen 03/27/24 18:00 03/27/24 20:00 03/27/24 22:00 Temperature 97.9 F Pulse Rate 61 53 L 58 L Respiratory Rate 19 15 Blood Pressure 109/53 L 121/70 Pulse Oximetry 99 96 Oxygen Delivery Oxygen Flow Rate Fraction of Inspired Oxygen 03/27/24 20:00 03/27/24 22:00 03/28/24 00:00 Temperature Pulse Rate 61 58 L 61 Respiratory Rate Blood Pressure Pulse Oximetry Oxyge
--- NOTE | 2024-03-28 13:54 | PM.PNNEP ---
Progress Note: A&P Assessment and Plan (1) End stage renal disease: Code(s): N18.6 - End stage renal disease Status: Chronic Assessment and Plan: due for dialysis today. He was seen at 8:00 a.m.. Dialysis will be later today Volume status is okay. Blood pressure would not tolerate fluid removal anyway. Blood pressure doing well. Will not remove much fluid since he just got off the Levophed yesterday. electrolytes okay (2) Septic shock: Code(s): A41.9 - Sepsis, unspecified organism; R65.21 - Severe sepsis with septic shock Status: Acute Assessment and Plan: presumably secondary to #3 s/p IVF resuscitation Improved. Still on antibiotics. (3) Emphysematous cholecystitis: Code(s): K81.0 - Acute cholecystitis Status: Acute Assessment and Plan: as noted by admission CT scan: Gangrenous/emphysematous cholecystitis with secondary portal venous gas s/p cholecystectomy tube placement on 03/23 by IR General Surgery following Tolerating the renal diet (4) Anemia: Code(s): D64.9 - Anemia, unspecified Status: Chronic Assessment and Plan: due to ESRD and likely worsened by acute illness Epogen with HD Today Hemoglobin 9.4 (5) Atrial fibrillation: Code(s): I48.91 - Unspecified atrial fibrillation Status: Acute Assessment and Plan: as noted by telemetry distant history per patient HR is good ranging in the 60-90 range (6) Generalized weakness: Code(s): R53.1 - Weakness Status: Acute Assessment and Plan: secondary to acute illness/sepsis and hemodynamic instability he will probably need some rehab Subjective Date/time seen: 03/28/24 13:54 Interval history: Patient is feeling better. He is eating breakfast. He is off his Levophed drip. He is moving out of the ICU. Exam Narrative: WDWN in NAD skin no rash Or subcu nodules head ncat lungs clear to auscultation cor reg no rub abd BS+ mildly tender and soft. Drain present. ext no edema or cyanosis. Objective Data Vital Signs Vital Signs: Vital Signs - 24 hr 03/27/24 14:00 03/27/24 14:00 03/27/24 16:00 Temperature Pulse Rate 63 63 62 Respiratory Rate 14 Blood Pressure 108/69 Pulse Oximetry 100 Oxygen Delivery Oxygen Flow Rate Fraction of Inspired Oxygen 03/27/24 16:00 03/27/24 16:00 03/27/24 18:00 Temperature 98 F Pulse Rate 59 L 61 Respiratory Rate 17 20 Blood Pressure 116/62 119/67 Pulse Oximetry 96 96 Oxygen Delivery Room Air Oxygen Flow Rate Fraction of Inspired Oxygen 03/27/24 18:00 03/27/24 20:00 03/27/24 22:00 Temperature 97.9 F Pulse Rate 61 53 L 58 L Respiratory Rate 19 15 Blood Pressure 109/53 L 121/70 Pulse Oximetry 99 96 Oxygen Delivery Oxygen Flow Rate Fraction of Inspired Oxygen 03/27/24 20:00 03/27/24 22:00 03/28/24 00:00 Temperature Pulse Rate 61 58 L 61 Respiratory Rate Blood Pressure Pulse Oximetry Oxygen Delivery Oxygen Flow Rate Fraction of Inspired Oxygen 03/28/24 00:00 03/28/24 02:00 03/28/24 02:00 Temperature 97.9 F Pulse Rate 61 58 L 58 L Respiratory Rate 16 17 Blood Pressure 107/53 L 97/62 L Pulse Oximetry 94 96 Oxygen Delivery Oxygen Flow Rate Fraction of Inspired Oxygen 03/28/24 04:00 03/28/24 04:00 03/28/24 06:00 Temperature 97.8 F 97.7 F Pulse Rate 62 60 58 L Respiratory Rate 18 19 Blood Pressure 128/73 114/69 Pulse Oximetry 98 96 Oxygen Delivery Oxygen Flow Rate Fraction of Inspired Oxygen 03/28/24 06:00 03/28/24 08:25 03/28/24 08:00 Temperature 97.5 F L Pulse Rate 58 L 73 Respiratory Rate 20 Blood Pressure 130/65 Pulse Oximetry 98 Oxygen Delivery Room Air Oxygen Flow Rate Fraction of Inspired Oxygen 03/28/24 08:42 03/28/24 08:00 03/28/24 08:00 Temperature Pulse Rate 73
--- NOTE | 2024-03-28 17:09 | PC.NURSE ---
This patient, Balwinder Mora, was received from [ ICU-5] on 03/28/24 at 1709. Patient/family oriented to unit policies and routines. Report received from NOY Falcon @ [phone]
[2024-03-28] MEDS: CENTRAL LINE FLUSH 10 ML IV PUSH (21:07)
[2024-03-29] VITALS (15 sets, daily range): BP systolic 92–149; BP diastolic 61–97; PULSE 55–79; RESP 18–20; TEMP 36.1–36.8; O2SAT 95–100
[2024-03-29] MEDS: PIPERACILLIN/TAZ 2.25G/NS 50ML 2.25 GM/50 ML BAG IVPB (05:43)
[2024-03-29] MEDS: CENTRAL LINE FLUSH 10 ML IV PUSH ×2 (05:44→11:54)
[2024-03-29 06:08] LABS: Basophils Absolute Auto 0.1 K/mm3 (0.0-0.1); Basophils Percent Auto 0.7 % (0.2-1.2); Eosinophils Absolute Auto 0.1 K/mm3 (0-0.3); Eosinophils Percent Auto 1.9 % (0-4.4); Hematocrit 27.1 % (42.0-52.0); Hemoglobin 9.1 g/dL (14.0-18.0); Immature Granulocyte Absolute 1.16 K/mm3 (0.00-0.031); Immature Granulocyte Percent A 15.7 % (0-0.5); Lymphocytes Absolute Auto 0.64 K/mm3 (0.9-3.2); Lymphocytes Percent Auto 8.6 % (18.3-44.2); Mean Corpuscular HGB Conc 33.6 g/dl (32-36); Mean Corpuscular Hemoglobin 34.2 pg (26-34); Mean Corpuscular Volume 101.9 fl (80-100); Mean Platelet Volume 9.8 fl (7.4-10.4); Monocytes Absolute Auto 0.7 K/mm3 (0.1-0.6); Monocytes Percent Auto 9.3 % (2.6-8.5); Neutrophils Absolute Auto 4.7 K/mm3 (1.3-6.7); Neutrophils Percent Auto 63.8 % (45.5-73.1); Platelet Count Result 188 k/mm3 (150-375); Red Blood Count 2.66 M/mm3 (4.6-6.20); Red Cell Distribution Width 14.1 % (11.5-14.5); White Blood Count 7.4 K/mm3 (4.5-10.0)
[2024-03-29 06:44] LABS: Alanine Aminotransferase 40 U/L (6-50); Albumin Level 3.7 g/dL (3.5-5.1); Alkaline Phosphatase 103 U/L (38-126); Anion Gap 12 mmol/L (4-12); Aspartate Amino Transferase 39 U/L (17-59); Bilirubin,Total 0.8 mg/dL (0.2-1.3); Blood Urea Nitrogen 48 mg/dL (9-20); Calcium 8.7 mg/dL (8.4-10.2); Carbon Dioxide 25 mmol/L (22-30); Chloride 99 mmol/L (98-107); Estimated CRCL calculation 12 ml/min; Estimated Glomerular Filt Rate 9; Glucose 90 mg/dL (65-110); Phosphorus 5.3 mg/dL (2.5-4.5); Sodium 136 mmol/L (137-145)
[2024-03-29 07:05] LABS: Magnesium 2.3 mg/dL (1.6-2.3)
[2024-03-29 07:29] LABS: Anisocytosis 1+; Band Neutrophils Percent 16 % (0-6); Lymphocytes Absolute Manual 0.51 K/mm3 (1.1-4.5); Monocytes Absolute Manual 0.29 K/mm3 (0.1-0.90); Monocytes Percent Manual 4 % (3-9); Neutrophils Absolute Manual 6.58 K/mm3 (1.3-6.7); Neutrophils Percent Manual 73 % (46-73); Platelet Estimate Adequate (Adequate); Total Cells Counted 100
[2024-03-29 07:30] LABS: Schistocytes None Seen
--- NOTE | 2024-03-29 07:30 | P.PNNP_ITS ---
Progress Note: A&P Assessment and Plan (1) End stage renal disease: Code(s): N18.6 - End stage renal disease Status: Chronic Assessment and Plan: * due for dialysis tomorrow. * Volume status is okay. Blood pressure would not tolerate fluid removal anyway. * Blood pressure doing well. * electrolytes okay * will remove a little fluid tomorrow if tolerated. he is eating well and bp is fine (2) Septic shock: Code(s): A41.9 - Sepsis, unspecified organism; R65.21 - Severe sepsis with septic shock Status: Acute Assessment and Plan: * presumably secondary to #3 * s/p IVF resuscitation * Improved. Still on zosyn (3) Emphysematous cholecystitis: Code(s): K81.0 - Acute cholecystitis Status: Acute Assessment and Plan: * as noted by admission CT scan: * Gangrenous/emphysematous cholecystitis with secondary portal venous gas * s/p cholecystectomy tube placement on 03/23 by IR * General Surgery following * Tolerating the renal diet (4) Anemia: Code(s): D64.9 - Anemia, unspecified Status: Chronic Assessment and Plan: * due to ESRD and likely worsened by acute illness * Epogen with HD on MWF * Hemoglobin 9.1 (5) Atrial fibrillation: Code(s): I48.91 - Unspecified atrial fibrillation Status: Acute Assessment and Plan: * as noted by telemetry * distant history per patient * HR is good ranging in the 60-90 range (6) Generalized weakness: Code(s): R53.1 - Weakness Status: Acute Assessment and Plan: * gradually better. * eating again Subjective Date/time seen: 03/29/24 07:30 Interval history: alert. feels okay. still lying in bed. Exam Narrative: WDWN in NAD skin no rash Or subcu nodules head ncat lungs clear bilaterally cor reg no rub abd BS+ mildly tender and soft. Drain present. ext no edema Objective Data Vital Signs Vital Signs: Vital Signs - 24 hr 03/28/24 08:25 03/28/24 08:00 03/28/24 08:42 Temperature 97.5 F L Pulse Rate 73 Respiratory Rate 20 Blood Pressure 130/65 Pulse Oximetry 98 99 Oxygen Delivery Room Air Room Air Oxygen Flow Rate Fraction of Inspired Oxygen 21 03/28/24 08:00 03/28/24 08:00 03/28/24 10:00 Temperature Pulse Rate 73 62 Respiratory Rate 18 Blood Pressure 109/61 Pulse Oximetry 97 Oxygen Delivery Room Air Oxygen Flow Rate Fraction of Inspired Oxygen 03/28/24 10:00 03/28/24 12:00 03/28/24 09:30 Temperature 98.0 F Pulse Rate 62 73 Respiratory Rate 20 Blood Pressure 126/98 H Pulse Oximetry 97 Oxygen Delivery Oxygen Flow Rate 0 Fraction of Inspired Oxygen 0 03/28/24 09:30 03/28/24 09:40 03/28/24 12:00 Temperature 98.1 F Pulse Rate 56 L 62 76 Respiratory Rate 20 Blood Pressure 119/73 120/65 Pulse Oximetry 96 Oxygen Delivery Oxygen Flow Rate Fraction of Inspired Oxygen 03/28/24 12:00 03/28/24 09:45 03/28/24 09:53 Temperature
--- NOTE | 2024-03-29 07:30 | PM.PNNEP ---
Progress Note: A&P Assessment and Plan (1) End stage renal disease: Code(s): N18.6 - End stage renal disease Status: Chronic Assessment and Plan: due for dialysis tomorrow. Volume status is okay. Blood pressure would not tolerate fluid removal anyway. Blood pressure doing well. electrolytes okay will remove a little fluid tomorrow if tolerated. he is eating well and bp is fine (2) Septic shock: Code(s): A41.9 - Sepsis, unspecified organism; R65.21 - Severe sepsis with septic shock Status: Acute Assessment and Plan: presumably secondary to #3 s/p IVF resuscitation Improved. Still on zosyn (3) Emphysematous cholecystitis: Code(s): K81.0 - Acute cholecystitis Status: Acute Assessment and Plan: as noted by admission CT scan: Gangrenous/emphysematous cholecystitis with secondary portal venous gas s/p cholecystectomy tube placement on 03/23 by IR General Surgery following Tolerating the renal diet (4) Anemia: Code(s): D64.9 - Anemia, unspecified Status: Chronic Assessment and Plan: due to ESRD and likely worsened by acute illness Epogen with HD on MWF Hemoglobin 9.1 (5) Atrial fibrillation: Code(s): I48.91 - Unspecified atrial fibrillation Status: Acute Assessment and Plan: as noted by telemetry distant history per patient HR is good ranging in the 60-90 range (6) Generalized weakness: Code(s): R53.1 - Weakness Status: Acute Assessment and Plan: gradually better. eating again Subjective Date/time seen: 03/29/24 07:30 Interval history: alert. feels okay. still lying in bed. Exam Narrative: WDWN in NAD skin no rash Or subcu nodules head ncat lungs clear bilaterally cor reg no rub abd BS+ mildly tender and soft. Drain present. ext no edema Objective Data Vital Signs Vital Signs: Vital Signs - 24 hr 03/28/24 08:25 03/28/24 08:00 03/28/24 08:42 Temperature 97.5 F L Pulse Rate 73 Respiratory Rate 20 Blood Pressure 130/65 Pulse Oximetry 98 99 Oxygen Delivery Room Air Room Air Oxygen Flow Rate Fraction of Inspired Oxygen 21 03/28/24 08:00 03/28/24 08:00 03/28/24 10:00 Temperature Pulse Rate 73 62 Respiratory Rate 18 Blood Pressure 109/61 Pulse Oximetry 97 Oxygen Delivery Room Air Oxygen Flow Rate Fraction of Inspired Oxygen 03/28/24 10:00 03/28/24 12:00 03/28/24 09:30 Temperature 98.0 F Pulse Rate 62 73 Respiratory Rate 20 Blood Pressure 126/98 H Pulse Oximetry 97 Oxygen Delivery Oxygen Flow Rate 0 Fraction of Inspired Oxygen 0 03/28/24 09:30 03/28/24 09:40 03/28/24 12:00 Temperature 98.1 F Pulse Rate 56 L 62 76 Respiratory Rate 20 Blood Pressure 119/73 120/65 Pulse Oximetry 96 Oxygen Delivery Oxygen Flow Rate Fraction of Inspired Oxygen 03/28/24 12:00 03/28/24 09:45 03/28/24 09:53 Temperature Pulse Rate 68 63 Respiratory Rate Blood Pressure 115/71 114/21 L Pulse Oximetry Oxygen Delivery Room Air Oxygen Flow Rate Fraction of Inspired Oxygen 03/28/24 11:21 03/28/24 11:30 03/28/24 11:45 Temperature Pulse Rate 64 64 65 Respiratory Rate Blood Pressure 111/55 L 107/67 114/57 L Pulse Oximetry Oxygen Delivery Oxygen Flow Rate Fraction of Inspired Oxygen 03/28/24 12:00 03/28/24 12:15 03/28/24 12:30 Temperature Pulse Rate 69 72 69 Respiratory Rate Blood Pressure 126/98 H 135/110 H 108/60 Pulse Oximetry Oxygen Delivery Oxygen Flow Rate Fraction of Inspired Oxygen 03/28/24 12:45 03/28/24 13:00 03/28/24 13:15 Temperature Pulse Rate 68 71 65 Respiratory Rate Blood Pressure 94/55 L 104/81 100/62 Pulse Oximetry Oxygen Delivery Oxygen Flow Rate Fraction of Inspired Oxygen 03/28/24 13:30 03/28/24 13:45 03/28/24 14:00 Temperature
[2024-03-29] MEDS: MIDODRINE HCL 10 MG TABLET PO ×3 (09:01→17:07)
[2024-03-29] MEDS: APIXABAN 5 MG TABLET PO ×2 (09:01→21:15)
--- NOTE | 2024-03-29 11:33 | PM.PNGS ---
Progress Note: A&P Assessment and Plan (1) Sepsis: Qualifiers: Sepsis acute organ dysfunction status: unspecified Sepsis type: sepsis due to unspecified organism Qualified Code(s): A41.9 - Sepsis, unspecified organism Code(s): A41.9 - Sepsis, unspecified organism Status: Acute Assessment and Plan: Resolved s/p source control. WBC normalized. Blood cx NGTD. Continue antibiotics. (2) Emphysematous cholecystitis: Code(s): K81.0 - Acute cholecystitis Status: Acute Assessment and Plan: Improving following percutaneous cholecystostomy tube placement. Tolerating low fat diet. Bile cultures growing lactobacillus species. Switched to oral antibiotics. Spoke with CC today regarding transfer to the [place] for further management. If he is unable to be transferred and is stable for discharge, then he needs to have a follow-up scheduled at the [facility] prior to discharging. He will eventually discharge with the cholecystostomy tube in place and should follow-up in the next few weeks. Plan I have discussed the patient's case and plan of care with Dr. Napier. Subjective Subjective Date/Time Seen: 03/29/24 11:33 Patient reports: no new complaints, feels better, pain is less and afebrile Interval history: Patient moved IMU yesterday. He continues to improve daily. No significant abdominal pain on my exam today. No nausea or vomiting. Tolerating a low-fat diet. Ostomy functioning well. Exam Const: General: comfortable and no acute distress Orientation/consciousness: patient oriented x3 GI: Inspection: non-distended and other (cholecystostomy tube with bilious output) GI Palp: Yes Soft to palpation, No Tenderness to palpation present (GI), No Guarding due to palpation present (GI) and No Rebound tenderness present Auscultation: normal bowel sounds Other: Ostomy functioning with stool in bag Objective Data Vital Signs Vital Signs: Vital Signs - 24 hr 03/28/24 12:00 03/28/24 12:00 03/28/24 12:00 Temperature 98.0 F Pulse Rate 73 76 Respiratory Rate 20 Blood Pressure 126/98 H Pulse Oximetry 97 Oxygen Delivery Room Air Fraction of Inspired Oxygen 03/28/24 11:45 03/28/24 12:00 03/28/24 12:15 Temperature Pulse Rate 65 69 72 Respiratory Rate Blood Pressure 114/57 L 126/98 H 135/110 H Pulse Oximetry Oxygen Delivery Fraction of Inspired Oxygen 03/28/24 12:30 03/28/24 12:45 03/28/24 13:00 Temperature Pulse Rate 69 68 71 Respiratory Rate Blood Pressure 108/60 94/55 L 104/81 Pulse Oximetry Oxygen Delivery Fraction of Inspired Oxygen 03/28/24 13:15 03/28/24 13:30 03/28/24 13:45 Temperature Pulse Rate 65 66 69 Respiratory Rate Blood Pressure 100/62 112/65 121/64 Pulse Oximetry Oxygen Delivery Fraction of Inspired Oxygen 03/28/24 14:00 03/28/24 14:00 03/28/24 14:15 Temperature Pulse Rate 67 72 70 Respiratory Rate 19 Blood Pressure 107/53 L 107/53 L 88/67 L Pulse Oximetry 97 Oxygen Delivery Fraction of Inspired Oxygen 03/28/24 14:30 03/28/24 14:55 03/28/24 14:43 Temperature 97.9 F Pulse Rate 65 64 66 Respiratory Rate 19 Blood Pressure 114/95 H 109/52 L 116/55 L Pulse Oximetry Oxygen Delivery Fraction of Inspired Oxygen 03/28/24 16:04 03/28/24 16:00 03/28/24 14:00 Temperature Pulse Rate 65 72 Respiratory Rate 17 Blood Pressure 114/65 Pulse Oximetry 96 Oxygen Delivery Room Air Fraction of Inspired Oxygen 03/28/24 16:00 03/28/24 16:00 03/28/24 17:30 Temperature 96.9 F L Pulse Rate 69 67 Respiratory Rate 18 Blood Pressure 121/64 Pulse Oximetry 98 Oxygen Delivery Room Air Fraction of Inspired Oxygen 03/28/24 18:00 03/28/24 19:53 03/28/24 20:45 Temperature 97.7 F Pulse Rate 70 67 67 Respiratory Rate 20 20 Blood Pressure 136/62 Pulse Oximetry 97 97 Oxygen Delivery Room Air Fraction of Inspired Oxygen 0 06
[2024-03-29] MEDS: AMOXICILLIN/CLAVULANATE K 500-125 MG TAB 1 TABLET PO ×2 (11:54→21:14)
--- NOTE | 2024-03-29 12:44 | PM.IMPN ---
Progress Note: A&P Assessment and Plan (1) End stage renal disease: Code(s): N18.6 - End stage renal disease Status: Chronic (2) Atrial fibrillation: Code(s): I48.91 - Unspecified atrial fibrillation Status: Acute (3) Septic shock: Code(s): A41.9 - Sepsis, unspecified organism; R65.21 - Severe sepsis with septic shock Status: Acute (4) Anemia: Code(s): D64.9 - Anemia, unspecified Status: Chronic (5) Ileostomy in place: Code(s): Z93.2 - Ileostomy status Status: Acute (6) Emphysematous cholecystitis: Code(s): K81.0 - Acute cholecystitis Status: Acute Plan This is a pleasant male multiple medical comorbidities status post ostomy due to kidney cancer. He presents with sepsis with shock. Transferred ICU in off of pressors. Cholecystostomy placed with radiology. [facility] since he is refusing it here. He has been started on apixaban for AFib. He is currently in controlled rate, continue telemetry. Full code. GI prophylaxis not indicated. Subjective Date/time seen: 03/29/24 12:44 Interval history: No major acute overnight events noted. Patient denies any abdominal pain nausea or vomiting. He had a bowel movement this morning. Patient is refusing to have cholecystectomy with our surgeons. [facility] Review of Systems Review of Systems: All systems reviewed & are unremarkable except as noted in HPI and below (Subjective) Exam Const: General: comfortable and no acute distress Other: Obese male with a protuberant abdomen. Eyes: Pupils: Equal, round and reactive pupils present Neck: Neck: supple Resp: Effort & Inspection: normal respiratory effort Auscultation: clear to auscultation bilaterally Cardio: Rate: regular rate Rhythm: abnormal rhythm GI: GI Palp: Yes Soft to palpation Other: Colostomy intact, soft brown stool. Cholecystostomy drain Extrem: General: no edema Objective Data Vital Signs Vital Signs: Vital Signs - 24 hr 03/28/24 12:45 03/28/24 13:00 03/28/24 13:15 Temperature Pulse Rate 68 71 65 Respiratory Rate Blood Pressure 94/55 L 104/81 100/62 Pulse Oximetry Oxygen Delivery Fraction of Inspired Oxygen 03/28/24 13:30 03/28/24 13:45 03/28/24 14:00 Temperature Pulse Rate 66 69 67 Respiratory Rate Blood Pressure 112/65 121/64 107/53 L Pulse Oximetry Oxygen Delivery Fraction of Inspired Oxygen 03/28/24 14:00 03/28/24 14:15 03/28/24 14:30 Temperature Pulse Rate 72 70 65 Respiratory Rate 19 Blood Pressure 107/53 L 88/67 L 114/95 H Pulse Oximetry 97 Oxygen Delivery Fraction of Inspired Oxygen 03/28/24 14:55 03/28/24 14:43 03/28/24 16:04 Temperature 97.9 F Pulse Rate 64 66 Respiratory Rate 19 Blood Pressure 109/52 L 116/55 L Pulse Oximetry Oxygen Delivery Room Air Fraction of Inspired Oxygen 03/28/24 16:00 03/28/24 14:00 03/28/24 16:00 Temperature Pulse Rate 65 72 69 Respiratory Rate 17 Blood Pressure 114/65 Pulse Oximetry 96 Oxygen Delivery Fraction of Inspired Oxygen 03/28/24 16:00 03/28/24 17:30 03/28/24 18:00 Temperature 96.9 F L Pulse Rate 67 70 Respiratory Rate 18 Blood Pressure 121/64 Pulse Oximetry 98 Oxygen Delivery Room Air Fraction of Inspired Oxygen 03/28/24 19:53 03/28/24 20:45 03/28/24 20:00 Temperature 97.7 F Pulse Rate 67 67 67 Respiratory Rate 20 20 Blood Pressure 136/62 Pulse Oximetry 97 97 Oxygen Delivery Room Air Fraction of Inspired Oxygen 0 03/28/24 22:00 03/29/24 00:00 03/29/24 00:45 Temperature 97 F L Pulse Rate 70 66 66 Respiratory Rate 18 18 Blood Pressure 92/78 L Pulse Oximetry 95 95 Oxygen Delivery Room Air Fraction of Inspired Oxygen 0 03/29/24 00:00 03/29/24 02:00 03/29/24 03:54 Temperature Pulse Rate 65 66 66
--- NOTE | 2024-03-29 18:26 | PC.NURSE ---
Pt transferred to [facility]'s room 260. HELADIO Rivera, notified of transfer. Report given to NOY Hutchison @ [facility].
--- NOTE | 2024-03-29 18:32 | PC.NURSE ---
This patient, Balwinder Mora, was transferred to [[id number] ] on 03/29/24 at 1830. Personal belongings sent with patient. Report given to [NOY Rayo @ [phone]]. Appropriate documentation sent with patient.
--- NOTE | 2024-03-29 18:32 | PC.NURSE ---
This patient, Balwinder Mora, was received from IMU on 03/29/24 at 1832. Patient oriented to unit policies and routines
[2024-03-30] VITALS (25 sets, daily range): BP systolic 96–136; BP diastolic 54–95; PULSE 59–87; RESP 18–20; TEMP 36–37; O2SAT 99–100
[2024-03-30] MEDS: CENTRAL LINE FLUSH 10 ML IV PUSH ×2 (05:25)
[2024-03-30 06:24] LABS: Hematocrit 28.3 % (42.0-52.0); Hemoglobin 9.5 g/dL (14.0-18.0); Mean Corpuscular HGB Conc 33.6 g/dl (32-36); Mean Corpuscular Hemoglobin 33.9 pg (26-34); Mean Corpuscular Volume 101.1 fl (80-100); Mean Platelet Volume 9.6 fl (7.4-10.4); Platelet Count Result 234 k/mm3 (150-375); Red Cell Distribution Width 14.3 % (11.5-14.5); White Blood Count 9.1 K/mm3 (4.5-10.0)
[2024-03-30 06:39] LABS: Albumin Level 3.8 g/dL (3.5-5.1); Anion Gap 14 mmol/L (4-12); Blood Urea Nitrogen 61 mg/dL (9-20); Calcium 8.8 mg/dL (8.4-10.2); Carbon Dioxide 22 mmol/L (22-30); Chloride 99 mmol/L (98-107); Estimated CRCL calculation 9 ml/min; Estimated Glomerular Filt Rate 7; Glucose 103 mg/dL (65-110); Magnesium 2.2 mg/dL (1.6-2.3); Phosphorus 6.8 mg/dL (2.5-4.5); Potassium 4.4 mmol/L (3.4-5.0); Sodium 135 mmol/L (137-145)
[2024-03-30] MEDS: MIDODRINE HCL 10 MG TABLET PO ×2 (08:22→13:29)
--- NOTE | 2024-03-30 10:30 | PCNWS ---
Weekly nutritional screen. Patient is tolerating current diet with adequate intake. No weight loss reported. No nutritional needs at this time.
--- NOTE | 2024-03-30 10:33 | P.PNNP_ITS ---
Progress Note: A&P Assessment and Plan (1) End stage renal disease: Code(s): N18.6 - End stage renal disease Status: Chronic Assessment and Plan: * hemodialysis underway * Volume status is okay. * Blood pressure doing well. * electrolytes okay (2) Septic shock: Code(s): A41.9 - Sepsis, unspecified organism; R65.21 - Severe sepsis with septic shock Status: Acute Assessment and Plan: * presumably secondary to #3 * s/p IVF resuscitation * Improved. Still on zosyn (3) Emphysematous cholecystitis: Code(s): K81.0 - Acute cholecystitis Status: Acute Assessment and Plan: * as noted by admission CT scan: * Gangrenous/emphysematous cholecystitis with secondary portal venous gas * s/p cholecystectomy tube placement on 03/23 by IR * General Surgery following * Tolerating the renal diet * he will get further care at the [facility] (4) Anemia: Code(s): D64.9 - Anemia, unspecified Status: Chronic Assessment and Plan: * due to ESRD and likely worsened by acute illness * Epogen with HD on MWF * Hemoglobin 9.5 (5) Atrial fibrillation: Code(s): I48.91 - Unspecified atrial fibrillation Status: Acute Assessment and Plan: * as noted by telemetry * distant history per patient * HR is good, still ranging in the 60-90 range (6) Generalized weakness: Code(s): R53.1 - Weakness Status: Acute Assessment and Plan: * gradually better. * eating again Subjective Date/time seen: 03/30/24 10:33 Interval history: Patient is alert. He feels better. Eager for discharge. He will follow-up at the [facility] for his gallbladder care. He is on dialysis right now and tolerating it well. We are removing a little bit of fluid. Blood pressure is doing fine. He was seen at 9:55 a.m. Exam 2 Narrative: WDWN in NAD skin no rash Or subcu nodules head ncat lungs clear bilaterally cor reg no rub abd BS+ mildly tender and soft. Drain present. ext no edema Objective Data Vital Signs Vital Signs: Vital Signs - 24 hr 03/29/24 11:47 03/29/24 12:00 03/29/24 12:00 Temperature 97.8 F Pulse Rate 76 69 Respiratory Rate 18 Blood Pressure 149/97 H Pulse Oximetry 99 Oxygen Delivery Room Air 03/29/24 15:45 03/29/24 16:00 03/29/24 20:00 Temperature 97.1 F L Pulse Rate 62 70 Respiratory Rate 20 Blood Pressure 128/61 Pulse Oximetry 100 Oxygen Delivery Room Air 03/29/24 23:17 03/29/24 20:00 03/30/24 00:00 Temperature 98.2 F Pulse Rate 55 L 59 L 64 Respiratory Rate 20 Blood Pressure 146/70 H Pulse Oximetry 99 Oxygen Delivery 03/30/24 04:00 03/30/24 06:00 03/30/24 08:07 Temperature 96.8 F L 97.5 F L Pulse Rate 59 L 72 70 Respiratory Rate 20 19 Blood Pressure 134/54 L 125/61 Pulse Oximetry 100 99 Oxygen Delivery Intake/Output Intake/Output: Intake & Output 03/27/24 03/28/24 03/29/24 03/30/24 23:59 23:59 23:59 23:59 Intake Total 1191.3 920 2120 740
--- NOTE | 2024-03-30 10:33 | PM.PNNEP ---
Progress Note: A&P Assessment and Plan (1) End stage renal disease: Code(s): N18.6 - End stage renal disease Status: Chronic Assessment and Plan: hemodialysis underway Volume status is okay. Blood pressure doing well. electrolytes okay (2) Septic shock: Code(s): A41.9 - Sepsis, unspecified organism; R65.21 - Severe sepsis with septic shock Status: Acute Assessment and Plan: presumably secondary to #3 s/p IVF resuscitation Improved. Still on zosyn (3) Emphysematous cholecystitis: Code(s): K81.0 - Acute cholecystitis Status: Acute Assessment and Plan: as noted by admission CT scan: Gangrenous/emphysematous cholecystitis with secondary portal venous gas s/p cholecystectomy tube placement on 03/23 by IR General Surgery following Tolerating the renal diet he will get further care at the [facility] (4) Anemia: Code(s): D64.9 - Anemia, unspecified Status: Chronic Assessment and Plan: due to ESRD and likely worsened by acute illness Epogen with HD on MWF Hemoglobin 9.5 (5) Atrial fibrillation: Code(s): I48.91 - Unspecified atrial fibrillation Status: Acute Assessment and Plan: as noted by telemetry distant history per patient HR is good, still ranging in the 60-90 range (6) Generalized weakness: Code(s): R53.1 - Weakness Status: Acute Assessment and Plan: gradually better. eating again Subjective Date/time seen: 03/30/24 10:33 Interval history: Patient is alert. He feels better. Eager for discharge. He will follow-up at the [facility] for his gallbladder care. He is on dialysis right now and tolerating it well. We are removing a little bit of fluid. Blood pressure is doing fine. He was seen at 9:55 a.m. Exam Narrative: WDWN in NAD skin no rash Or subcu nodules head ncat lungs clear bilaterally cor reg no rub abd BS+ mildly tender and soft. Drain present. ext no edema Objective Data Vital Signs Vital Signs: Vital Signs - 24 hr 03/29/24 11:47 03/29/24 12:00 03/29/24 12:00 Temperature 97.8 F Pulse Rate 76 69 Respiratory Rate 18 Blood Pressure 149/97 H Pulse Oximetry 99 Oxygen Delivery Room Air 03/29/24 15:45 03/29/24 16:00 03/29/24 20:00 Temperature 97.1 F L Pulse Rate 62 70 Respiratory Rate 20 Blood Pressure 128/61 Pulse Oximetry 100 Oxygen Delivery Room Air 03/29/24 23:17 03/29/24 20:00 03/30/24 00:00 Temperature 98.2 F Pulse Rate 55 L 59 L 64 Respiratory Rate 20 Blood Pressure 146/70 H Pulse Oximetry 99 Oxygen Delivery 03/30/24 04:00 03/30/24 06:00 03/30/24 08:07 Temperature 96.8 F L 97.5 F L Pulse Rate 59 L 72 70 Respiratory Rate 20 19 Blood Pressure 134/54 L 125/61 Pulse Oximetry 100 99 Oxygen Delivery Intake/Output Intake/Output: Intake & Output 03/27/24 03/28/24 03/29/24 03/30/24 23:59 23:59 23:59 23:59 Intake Total 1191.3 920 2120 740 Output Total 1245 1405 200 Balance -53.7 -485 1920 740 Meds/Results Medications: Active Medications Generic Name Dose Route Start Last Admin Trade Name Lawq PRN Reason Stop Dose Admin Amoxicillin/Clavulanate Potassium 1 tablet 03/29/24 12:00 03/29/24 21:14 Amoxicillin/Clavulanate K 500-125 Mg Tab PO 04/02/24 21:01 1 tablet Q12HR ANA Administration Apixaban 5 mg 03/26/24 21:00 03/29/24 21:15 Apixaban 5 Mg Tablet PO 5 mg Q12HR ANA Administration Epoetin Donell-epbx 10,000 units 03/28/24 09:00 03/28/24 13:40 Epoetin Donell-Epbx 10,000 Units/Ml Vial IV PUSH 10,000 units MOWEFR@09 [facility] Administration Miconazole Nitrate 1 applic 03/24/24 09:00 03/30/24 08:23 Miconazole 2% Antifungal Ointment 56 Gm TOPICAL 1 applic Q12HR [facility] Administration Midodrine 10 mg 03/26/24 09:00 03/30/24 08:22 Midodrine Hcl 10 Mg Tablet PO 10 mg TID [facility] Administration Ondans
[2024-03-30] MEDS: EPOETIN ALFA-EPBX 10,000 UNITS/ML VIAL 10000 UNITS IV PUSH (11:10)
--- NOTE | 2024-03-30 12:07 | PCPTNOTE ---
The patient treatment was not able to be completed due to patient out of room for dialysis. Will plan to continue treatment per plan of care.
[2024-03-30] MEDS: NEOMYCIN/POLYMYXIN/BACITRACIN OINTMENT PACKET 1 PACKET TOPICAL (13:29)
[2024-03-30] MEDS: AMOXICILLIN/CLAVULANATE K 500-125 MG TAB 1 TABLET PO (13:29)
[2024-03-30] MEDS: APIXABAN 5 MG TABLET PO (13:29)
--- NOTE | 2024-03-30 14:24 | PM.PNGS ---
Progress Note: A&P Assessment and Plan (1) Emphysematous cholecystitis: Code(s): K81.0 - Acute cholecystitis Status: Acute Assessment and Plan: Continue to improve following percutaneous cholecystostomy tube placement. Tolerating low fat diet. Bile cultures growing lactobacillus species. Switched to oral antibiotics. We have spoke with the surgery team at the [facility] who would accept the patient in follow-up. They should be calling the patient to set up a follow-up appointment in the next few weeks. Okay to discharge from our standpoint with the cholecystostomy tube. F/u with the surgeon at the [facility] in the next few weeks. Recommend another 10 days of oral antibiotics on discharge. (2) Sepsis: Qualifiers: Sepsis acute organ dysfunction status: unspecified Sepsis type: sepsis due to unspecified organism Qualified Code(s): A41.9 - Sepsis, unspecified organism Code(s): A41.9 - Sepsis, unspecified organism Status: Acute Assessment and Plan: Resolved s/p source control. Plan I have discussed the patient's case and plan of care with Dr. Napier. Subjective Subjective Date/Time Seen: 03/30/24 14:24 Patient reports: tolerating a regular diet Interval history: Doing well today. No complaints. No abdominal pain. Exam Const: General: comfortable and no acute distress GI: Inspection: non-distended and other (cholecystostomy tube with bilious output) GI Palp: Yes Soft to palpation, No Tenderness to palpation present (GI), No Guarding due to palpation present (GI) and No Rebound tenderness present Auscultation: normal bowel sounds Other: Ostomy functioning with stool in bag Objective Data Vital Signs Vital Signs: Vital Signs - 24 hr 03/29/24 15:45 03/29/24 16:00 03/29/24 20:00 Temperature 97.1 F L Pulse Rate 62 70 Respiratory Rate 20 Blood Pressure 128/61 Pulse Oximetry 100 Oxygen Delivery Room Air 03/29/24 23:17 03/29/24 20:00 03/30/24 00:00 Temperature 98.2 F Pulse Rate 55 L 59 L 64 Respiratory Rate 20 Blood Pressure 146/70 H Pulse Oximetry 99 Oxygen Delivery 03/30/24 04:00 03/30/24 06:00 03/30/24 08:07 Temperature 96.8 F L 97.5 F L Pulse Rate 59 L 72 70 Respiratory Rate 20 19 Blood Pressure 134/54 L 125/61 Pulse Oximetry 100 99 Oxygen Delivery 03/30/24 08:50 03/30/24 09:02 03/30/24 09:15 Temperature 98.2 F Pulse Rate 71 70 82 Respiratory Rate 18 Blood Pressure 105/71 127/64 117/66 Pulse Oximetry Oxygen Delivery 03/30/24 09:30 03/30/24 09:45 03/30/24 10:00 Temperature Pulse Rate 72 69 75 Respiratory Rate Blood Pressure 125/62 127/59 L 121/61 Pulse Oximetry Oxygen Delivery 03/30/24 10:15 03/30/24 10:30 03/30/24 10:45 Temperature Pulse Rate 72 83 69 Respiratory Rate Blood Pressure 96/57 L 117/95 H 116/66 Pulse Oximetry Oxygen Delivery 03/30/24 11:00 03/30/24 11:15 03/30/24 11:30 Temperature Pulse Rate 77 76 79 Respiratory Rate Blood Pressure 122/55 L 136/67 126/66 Pulse Oximetry Oxygen Delivery 03/30/24 11:45 03/30/24 12:00 Temperature Pulse Rate 81 79 Respiratory Rate Blood Pressure 121/62 128/94 H Pulse Oximetry Oxygen Delivery Intake/Output Intake/Output: Intake & Output 03/27/24 03/28/24 03/29/24 03/30/24 23:59 23:59 23:59 23:59 Intake Total 1191.3 920 2120 980 Output Total 1245 1405 200 Balance -53.7 -485 1920 980 Meds/Results Medications: Active Medications Generic Name Dose Route Start Last Admin Trade Name Lawq PRN Reason Stop Dose Admin Amoxicillin/Clavulanate Potassium 1 tablet 03/29/24 12:00 03/30/24 13:29 Amoxicillin/Clavulanate K 500-125 Mg Tab PO 04/02/24 21:01 1 tablet Q12HR ANA Administration Apixaban 5 mg 03/26/24 21:00 03/30/24 13:29 Apixaban 5 Mg Tablet PO 5 mg Q12HR ANA Administration Epoetin Donell-epbx 10,000 units 03/28/24 09:00 03/30/24 11:10 Epoetin A
--- NOTE | 2024-03-30 14:45 | PM.DS ---
DS: Admitting Diagnosis Discharge Date March 30, 2024 Admitting Diagnosis Sepsis DS: Discharge Diagnosis Discharge Diagnosis (1) End stage renal disease: Code(s): N18.6 - End stage renal disease Status: Chronic (2) Septic shock: Code(s): A41.9 - Sepsis, unspecified organism; R65.21 - Severe sepsis with septic shock Status: Acute (3) Atrial fibrillation: Code(s): I48.91 - Unspecified atrial fibrillation Status: Acute (4) Emphysematous cholecystitis: Code(s): K81.0 - Acute cholecystitis Status: Acute DS: Summary Hospital Course Hospital Course: 70-year-old male who gets [facility] with PMH obesity, ESRD on dialysis MWF, status post nephrectomy secondary to kidney cancer, history of subtotal colectomy and end ileostomy, hypertension, paroxysmal AFib presents on 03/23/2024 with abdominal pain dry heaves and loss of appetite for 3 days. Treated for sepsis likely related to necrotic gallbladder status post large volume fluid resuscitation. All of his a [employer] antihypertensives have been stopped and he has been placed on midodrine p.o. t.i.d. and with that his blood pressure has been systolic 100s to 120s and tolerating dialysis. He received cefepime vancomycin and Flagyl and transition to Augmentin 1000 mg p.o. b.i.d. on discharge for 5 more days. Blood cultures negative, final report. 03/23/2024 CT abdomen pelvis contrast demonstrates gangrenous/emphysematous cholecystitis with secondary portal venous gas, small sliding-type hiatal hernia, prostatomegaly, status post right nephrectomy with moderate atrophy of the left kidney, sub total colectomy with Keerthi's pouch and right lower quadrant end ileostomy. On 03/23/[address]-guided percutaneous cholecystostomy tube placed by Dr. Wren without complication. 50 mL of fluid aspirated for testing which results lactobacillus species. Cholecystostomy tube has been functioning well. Patient refused cholecystectomy here with General surgery as he wanted the [facility] to perform it. This sepsis has resolved, abdominal pain resolved. Levophed discontinued Dr. Napier has contacted the [facility]. patient will be having close follow-up with [facility] general surgeons. Continue low-fat diet. History of AFib with prior AFib ablation at the [facility]. for patient started on apixaban 5 mg p.o. b.i.d. and tolerated this well. 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 Stable for discharge on 03/30/2024 to home. He was full code. Adverse effects, risks and benefits of medications discussed with the patient understand agree to the plan above. MIPS: does not have heart failure. Time Spent with Patient Time attestation: Total time spent providing and/or coordinating discharge services: Exam Const: General: comfortable and no acute distress Other: Obese male with a protuberant abdomen. Eyes: Pupils: Equal, round and reactive pupils present Neck: Neck: supple Resp: Effort & Inspection: normal respiratory effort Auscultation: clear to auscultation bilaterally Cardio: Rate: regular rate Rhythm: abnormal rhythm GI: GI Palp: Yes Soft to palpation Other: Colostomy intact, soft brown stool. Cholecystostomy drain with bile output. Extrem: General: no edema DS: Data Data Completed and Pending Labs on day of discharge: Labs from last 24 hours 03/30/24 06:12 WBC 9.1 RBC 2.80 L Hgb 9.5 L Hct 28.3 L MCV 101.1 H MCH 33.9 MCHC 33.6 RDW 14.3 Plt Count 234 MPV 9.6 Sodium 135 L Potassium 4.4 Chloride 99 Carbon Dioxide 22 Anion Gap 14 H BUN 61 H D Creatinine 7.70 H Estim Creat Clear Calc 9 Estimated GFR 7 L Glucose 103 Calcium 8.8 Phosphorus 6.8 H Magnesium 2.2 Albumin 3.8 Preliminary micro results at discharge 03/23/24 17:35 Fungal Culture - Preliminary Gallbladder Fluid Discharge Plan Discharge Attending physician on discharge: Penelope Banuelos Consulting providers: Nirav
--- NOTE | 2024-03-30 19:00 | PC.NURSE ---
Nette Mata, patients caregiver called and notified me that his eliquis is over $700 and they will not be picking it up. I notified Dr. Banuelos of what happened. Discussed that [facility] physician needs to be notified and coverage options for the medications will be discussed with patient and caregiver.
--- NOTE | 2024-03-31 11:47 | PC.NURSE ---
Received call from floor nurse that pt went to pharmacy to get his Eliquis. His Eliquis was going to cost him $700.00. Instructed to fax script to [facility] at [phone]. Script faxed to [facility].
== END 2024-03-30 18:00 | disposition home or self-care (01) | DRG 871 ==
LOC: ANHED 12:12 → ANHICU 20:37 → ANHIMU 03-28 17:08 → ANH3MED 03-29 18:11
PROVIDERS: Internal Medicine; Internal Medicine Nephrology; Admitting Provider Internal Medicine; Emergency Provider Student in an Organized Health Care Education/Training Program; Visit Provider General Practice
DX: A41.9 Sepsis, unspecified organism (principal); N18.6 End stage renal disease; R65.21 Severe sepsis with septic shock; K81.0 Acute cholecystitis; I12.0 Hypertensive chronic kidney disease with stage 5 chronic kidney disease or end stage renal disease; K82.A1 Gangrene of gallbladder in cholecystitis; B96.89 Other specified bacterial agents as the cause of diseases classified elsewhere; D63.1 Anemia in chronic kidney disease; F17.210 Nicotine dependence, cigarettes, uncomplicated; I48.91 Unspecified atrial fibrillation; I95.9 Hypotension, unspecified; K44.9 Diaphragmatic hernia without obstruction or gangrene; Z85.528 Personal history of other malignant neoplasm of kidney; Z90.5 Acquired absence of kidney; Z99.2 Dependence on renal dialysis; Z85.038 Personal history of other malignant neoplasm of large intestine; Z90.49 Acquired absence of other specified parts of digestive tract; Z79.82 Long term (current) use of aspirin; Z20.822 Contact with and (suspected) exposure to COVID-19; Z93.2 Ileostomy status
CPT/HCPCS: 36415; 36556; 71046; 74177; 75989; 80048; 80053; 80069; 80202; 82248; 82533; 82607; 82746; 82803; 82948; 83540; 83550; 83605; 83690; 83735; 84100; 84484; 85025; 85027; 85610; 85730; 86140; 86706; 87040; 87070; 87075; 87102; 87205; 87206; 87340; 87637; 87641; 93005; 96365; 96366; 96367; 96375; 96376; 97110; 97116; 97162; 97166; 99291; A9270; C1729; C1751; C1769; C8929; G0257; J0692; J1170; J1644; J1836; J2185; J2405; J2543; J3370; J7030; J7120; P9047; Q5105; Q9957; Q9967